=== PATIENT | male | born 1960 | race Caucasian/White ===

== ENCOUNTER 2024-07-30 06:20 | Observation (INO) ==
[2024-07-30] MEDS: SODIUM CHLORIDE 0.9% 1,000 ML IV ONE ×2 (07:00→08:21)
--- NOTE | 2024-07-30 07:17 | Emergency Department Note ---
Impression & Plan Nausea & vomiting, Diarrhea, Dehydration, Elevated troponin, Abnormal ECG ED Provider Note ED Provider Note NAME: HUMBLE BARKLEY AGE:63 SEX: Male : 1960 ARRIVES VIA: Private vehicle INFORMANT: Patient ED PROVIDER(s): Ana Khan DO CHIEF COMPLAINT: Nausea and vomiting, diarrhea, dehydration HPI: This is a 63-year-old male presents emergency department due to concern for 4 days of nausea and vomiting, diarrhea, abdominal cramping and concern for dehydration. Patient states he first began feeling ill on Friday and thought perhaps it was food poisoning. He states diarrhea started first followed by vomiting. He states he has had more diarrhea than vomiting throughout the last 4 days. He states his daughter did give him Zofran to try which she was taking once a day without any significant improvement. He states he feels a lot of bloating and central abdominal discomfort. He has not noted any blood in the emesis or stools. No recent antibiotics, no recent travel, no history of IBS or IBD. Patient states he had a routine colonoscopy performed a little over a month ago in which a polyp was removed however was otherwise reported to him as reassuring. No recent change in medications. He denies any other known sick contact. PAST MEDICAL HISTORY:See Below PAST SURGICAL HISTORY:See Below FAMILY HISTORY:See Below SOCIAL HISTORY:See Below HOME MEDICATIONS:See Below ALLERGIES:See Below VITALS:See Below PHYSICAL EXAMINATION: GENERAL: alert, well appearing, well nourished, no distress, non-toxic EYE EXAM: normal conjunctiva, PERRL and EOM's grossly intact OROPHARYNX: no exudate, no erythema, lips, buccal mucosa, and tongue normal and mucous membranes are dry NECK: supple, no nuchal rigidity, no adenopathy, non-tender LUNGS: Clear to auscultation. Normal chest wall mechanics, no w/r/r HEART: no murmurs, S1 normal and S2 normal ABDOMEN: abdomen soft, non-tender, normo-active bowel sounds, no masses, no rebound or guarding. BACK: Back is symmetrical on inspection and there is no deformity, no midline tenderness, no CVA tenderness. SKIN: no rashes, petechiae, orbruising UPPER EXTREMITIES: upper extremities are grossly normal. FROM, nml pulses b/l. LOWER EXTREMITIES: No pitting edema. FROM, nml pulses b/l. NEURO EXAM: Normal sensorium, cranial nerves II-XII grossly intact, normal speech, no facial droop,nogross weakness of arms, no gross weakness of legs. Gross sensation intact. No ataxia. Vital Signs: reviewed and remarkable Differential Diagnosis: Viral syndrome, foodborne illness, dehydration, RAÚL, ischemic colitis, bowel obstruction, volvulus, perforation, medication ADR, as well as others were considered MEDICAL DECISION MAKING: This is a 63 yo male who presents to the ER c/o 4 days of diarrhea, nausea, and vomiting. Labs drawn and sent, IV established, EKG and CXR performed and interpreted at bedside, and patient placed on telemetry. Patient started on IVF and given IV protonix, IV compazine and benadryl. Labs revealed hypokalemia, dehydration, and elevated troponin. EKG was abnormal additionally however patient denied chest pain or dyspnea. He was started on a 2nd liter and given oral potassium and oral bentyl. He did report feeling improved. Repeat troponin elevated further. Stool culture and cdiff negative. Lactic acid added and patient sent for CT a/p. CT reassuring as was lactic acid. I discussed concerns with patient given elevated troponin and unclear etiology of his symptoms and likely further need for rehydration. Patient also noted by automotive refinish technician to have a brief burst of tachycardia. Patient does have a hx of palpitations which may be exacerbated by dehydration and hypokalemia. Case discussed with hospitalist team for additional evaluation and mgmt. Consultation(s): 1125: Discussed with Quang Burns hospitalist team, for additional evaluation and management. ER Treatment Provided: See below Diagnostics Interpreted By Me: -ECG: Sinus tachycardia at 111, leftward axis, incomplete right bundle branch block, T wave inversions noted in 1, aVL, with appearance of slight ST depression in V3 through V6 -Cardiac Monitoring: An order was placed for continuous cardiac monitoring. The monitor shows a rate of 108 with sinus tachycardia rhythm. -Laboratory studies: As stated above and show below. -Imaging studies: CT A/P: No obvious perforation, no diverticulitis, no bowel obstruction Triage Nursing Note Reviewed Prior/Outside Records Reviewed Past Med/Surg History Problem List (Updated 07/30/24 @ 16:33 by RAMONE Bernstein) Hyperglycemia Hypokalemia Abnormal ECG (Acute) Elevated troponin (Acute) Dehydration (Acute) Diarrhea (Acute) Nausea & vomiting (Acute) History of palpitations Kidney stones History of adrenal surgery Adrenal cyst Rt Diverticulitis (Chronic) hx Medical History Adrenal cyst Rt Borderline diabetes mellitus Diverticulitis hx Diverticulosis GERD (gastroesophageal reflux disease) Hearing loss Heart palpitations 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 Hemochromatosis therapeutic phlebotomy PRN [facility]. History of anesthesia problem hx aspiration with endoscopy procedure x 1 occurrence History of basal cell carcinoma History of colon polyps Osteoarthritis Rash in adult reports recurrent rash, unk etiology. recent visit with factory manager, determined allergy to fragrances and bacitracin Sleep apnea unable to tolerate CPAP Surgical History History of adrenal surgery History of arthroscopy of right knee History of basal cell carcinoma (BCC) excision History of biopsy Rt adrenal gland -- benign History of cervical spinal surgery ROM WNL per pt History of cholecystectomy History of colonoscopy History of esophagogastroduodenoscopy (EGD) History of lumbar surgery History of shoulder surgery BL History of thumb surgery Left Social History Smoking Status: Never smoker Second Hand Exposure: No; Do You Dip or Chew Tobacco: No; Hx Alcohol Use: No Hx Substance Use: No Preferred Language: Turkmen Communication Ability: Effective Cot Assembler Required: No Beliefs That Will Affect Care: None marital status: Current Living Situation: Spouse current occupational status: employed Feels Safe at Home: Yes Assistive Devices: Glasses Allergies Allergies Allergy/AdvReac Type Severity Reaction Status Date / Time amoxicillin Allergy Severe Swelling Verified 07/30/24 09:07 of Lip/Tongue/Throat bacitracin Allergy Severe Rash Verified 07/30/24 09:07 clavulanic acid Allergy Severe Swelling Verified 07/30/24 09:07 of Lip/Tongue/Throat Penicillins Allergy Severe Swelling Verified 07/30/24 09:07 of Lip/Tongue/Throat perfume Allergy Severe [place]/Perfume/Anything Unverified 07/30/24 09:02 with fragrance on skin causes rash sulfamethoxazole Allergy Severe Hives and Unverified 07/30/24 09:02 [From Bactrim] Rash trimethoprim [From Bactrim] Allergy Severe Hives and Unverified 07/30/24 09:02 Rash ciprofloxacin Allergy Intermediate Rash Verified 07/30/24 09:02 moxifloxacin Allergy Unknown Rash Verified 07/30/24 09:02 Home Meds Home Medications Medication Instructions Recorded Confirmed acetaminophen 500 mg tablet 500 mg PO Q6H PRN Pain 12/26/20 07/30/24 (Tylenol Extra Strength) omeprazole 40 mg capsule,delayed 40 mg PO QAM 12/26/20 07/30/24 release fexofenadine 180 mg tablet 180 mg PO QAM PRN Allergy Symptoms 09/25/22 07/30/24 Previous Rx's Medication Instructions Recorded metformin 500 mg tablet 500 mg PO UD #35 tabs 07/31/24 metoprolol succinate 25 mg 25 mg PO DAILY #30 tabs 07/31/24 tablet,extended release 24 hr Results & Data (ED) Vital Signs Vital Signs - 24 hr 07/30/24 06:27 07/30/24 06:39 07/30/24 06:48 Temperature 36.6 C Temperature Source Temporal Artery Scan Pulse Rate 115 H 109 H Pulse Rate [Apical] 107 H Pulse Rhythm Pulse Rhythm [Apical] Regular Respiratory Rate 18 18 Respiratory Effort / Characteristics Non-Labored Non-Labored Spontaneous Respiratory Depth Normal Normal Respiratory Pattern Regular Regular Blood Pressure 149/86 H Blood Pressure [Right Arm] 134/91 Blood Pressure Mean 107 Blood Pressure Mean [Right Arm] 105 Pulse Oximetry 97 97 Oxygen Delivery Method Room Air Room Air Sepsis Recent Fever Within 48 Hours No Sepsis New/Unexplained Change in Mental Status N/A Sepsis Action Taken by Nursing No Action Required 07/30/24 06:48 07/30/24 08:31 07/30/24 10:16 Temperature Temperature Source Pulse Rate 107 H Pulse Rate [Apical] 97 H 91 H Pulse Rhythm Regular Pulse Rhythm [Apical] Respiratory Rate 18 13 14 Respiratory Effort / Characteristics Respiratory Depth Respiratory Pattern Blood Pressure Blood Pressure [Right Arm] 141/81 H 128/70 Blood Pressure Mean Blood Pressure Mean [Right Arm] 101 89 Pulse Oximetry 97 96 94 Oxygen Delivery Method Room Air Room Air Room Air Sepsis Recent Fever Within 48 Hours Sepsis New/Unexplained Change in Mental Status Sepsis Action Taken by Nursing Laboratory Data 07/31/24 04:19 07/31/24 04:19 Lab Results 07/30/24 07/30/24 07/30/24 Range/Units 06:52 08:32 10:23 WBC 10.30 (4.8-10.8) K/ul RBC 6.12 H (4.70-6.10) M/uL Hgb 18.6 H (14.0-18.0) g/dl Hct 50.9 (42.0-52.0) % MCV 83.2 (80.0-100.0) fL MCH 30.4 (25.0-34.0) pg MCHC 36.5 H (32.0-36.0) g/dL RDW Std Deviation 36.9 (36.4-46.3) fL RDW Coeff of [place] 12.2 (11.5-14.5) % Plt Count 260 (130-400) K/uL MPV 9.6 (9.4-12.4) fL Immature Gran % (Auto) 1.0 % Neut % (Auto) 72.3 % Lymph % (Auto) 16.5 % [place] % (Auto) 8.8 % Eos % (Auto) 1.0 % Baso % (Auto) 0.4 % Neut # (Auto) 7.45 H (1.40-6.50) K/uL Lymph # (Auto) 1.70 (1.20-3.40) K/uL [place] # (Auto) 0.91 H (0.11-0.59) K/uL Eos # (Auto) 0.10 (0.00-0.50) K/uL Baso # (Auto) 0.04 (0.00-0.20) K/uL Immature Gran # (Auto) 0.10 (0.01-0.20) K/uL PT 10.9 (9.0-12.0) Seconds INR 1.0 (0.9-1.1) Sodium 134 L (136-145) mmol/L Potassium 3.0 L (3.5-5.1) mmol/L Chloride 103 (98-107) mmol/L Carbon Dioxide 21 (21-32) mmol/L Anion Gap 10 (3-11) BUN 20 (6-23) mg/dl Creatinine 1.39 (0.6-1.4) mg/dl Est Cr Clr Drug Dosing 64.3 ml/min eGFR 56.61 BUN/Creatinine Ratio 14.4 (10-20) Glucose 207 H (70-99(Fasting)) mg/dl Estimat Average Glucose 197 mg/dl Hemoglobin A1c 8.5 H (4.5-5.6) % Lactate 1.1 (0.4-2.0) mmol/L Calcium 9.6 (8.6-10.3) mg/dl Magnesium 1.8 (1.7-2.4) mg/dl Total Bilirubin 1.5 H (0.2-1.0) mg/dl AST 22 (13-39) U/L ALT 32 (7-52) U/L Alkaline Phosphatase 85 (34-104) U/L Troponin I High Sens 44.5 H 55.6 H* D (0-20) pg/ml Total Protein 8.3 (6.0-8.3) gm/dl Albumin 4.6 (3.4-5.0) gm/dl Globulin 3.7 (2.5-4.0) gm/dl Albumin/Globulin Ratio 1.2 (0.9-2) Lipase 25 (11-82) U/L TSH 2.949 (0.300-4.500) uIu/ml Urine Color Yellow Urine Appearance Clear (Clear) Urine pH 5.5 (4.5-7.5) Ur Specific [place] 1.013 (1.000-1.030) Urine Protein Trace H (Negative) Urine Glucose (UA) Negative (Negative) Urine Ketones 1+ H (Negative) Urine Blood Negative (Negative) Urine Nitrite Negative (Negative) Urine Bilirubin Negative (Negative) Urine Urobilinogen Negative (Negative) Ur Leukocyte Esterase Negative (Negative) Urine WBC (Auto) 0-5 (0-5) /hpf Urine RBC (Auto) 0-2 (0-2) /hpf U Hyaline Cast (Auto) 11-20 H (0-2) /lpf U Epithel Cells (Auto) 0-2 (0-2) /hpf Urine Bacteria (Auto) None Seen (None Seen) Hyaline Casts Present A (None Presnt) /lpf Granular Casts Present A (None Prsent) /lpf Stl C. cayetanensis PCR Not Detected (NotDetected) Stool Rotavirus A PCR Not Detected (NotDetected) Stl Adenov F 40/41 PCR Not Detected (NotDetected) Stool Astrovirus (PCR) Not Detected (NotDetected) Stool Campylobacter PCR Not Detected (NotDetected) Stl C. diff Tox B Gene Negative Cdiff Gene (Neg) Stool Cryptosporidium PCR Not Detected (NotDetected) Stl E.coli Shiga Tox PCR Not Detected (NotDetected) Stl Enterotoxigenic E PCR Not Detected (NotDetected) Stool EPEC (PCR) Not Detected (NotDetected) Stool EAEC (PCR) Not Detected (NotDetected) Stl E. histolytica PCR Not Detected (NotDetected) Stool Giardia Lamblia PCR Not Detected (NotDetected) Stool Salmonella PCR Not Detected (NotDetected) Stool Sapovirus (PCR) Not Detected (NotDetected) Stl P. shigelloides PCR Not Detected (NotDetected) Stl Shigella/EIEC PCR Not Detected (NotDetected) St Y.enterocolitica PCR Not Detected (NotDetected) Stool Vibrio (PCR) Not Detected (NotDetected) Stl Vibrio cholerae PCR Not Detected (NotDetected) Stl Norovirus GI/GII PCR Not Detected (NotDetected) Administered Medications Discontinued Medications Diphenhydramine HCl (Diphenhydramine 50 Mg/Ml Vial) 12.5 mg IV NOW STA Stop: 07/30/24 07:37 Last Admin: 07/30/24 08:20 Dose: 12.5 mg Documented By: CHUYITA Sodium Chloride (Nss) 1,000 mls @ 999 mls/hr IV .Q1H1M ONE Stop: 07/30/24 08:04 Last Infusion: 07/30/24 08:15 Dose: Infused Documented By: Admin: 07/30/24 07:00 Dose: 999 mls/hr Documented By: CHUYITA Pantoprazole Sodium (Protonix) 40 mg in 10 mls @ 5 mls/min IV NOW ONE Stop: 07/30/24 07:06 Last Admin: 07/30/24 07:26 Dose: 5 mls/min Documented By: CHUYITA Prochlorperazine (Compazine) 1 mls @ 1 mls/min IV ONE ONE Stop: 07/30/24 07:37 Last Admin: 07/30/24 08:21 Dose: 1 mls/min Documented By: CHUYITA Magnesium Sulfate/Dextrose (Magnesium Sulfate / D5w) 1 gm in 100 mls @ 100 mls/hr IV NOW STA Stop: 07/30/24 08:36 Last Infusion: 07/30/24 09:33 Dose: Infused Documented By: Admin: 07/30/24 08:21 Dose: 100 mls/hr Documented By: CHUYITA Sodium Chloride (Nss) 1,000 mls @ 999 mls/hr IV .Q1H1M ONE Stop: 07/30/24 09:09 Last Infusion: 07/30/24 10:21 Dose: Infused Documented By: Admin: 07/30/24 08:21 Dose: 999 mls/hr Documented By: CHUYITA Potassium Chloride/Sodium Chloride (Normal Saline W/20 Meq Kcl) 20 meq in 1,000 mls @ 100 mls/hr IV .Q10H OSIEL Stop: 07/31/24 17:14 Last Admin: 07/31/24 07:17 Dose: 100 mls/hr Documented By: Infusion: 07/31/24 07:17 Dose: Infused Documented By: Admin: 07/30/24 22:32 Dose: 100 mls/hr Documented By: Infusion: 07/30/24 22:14 Dose: Infused Documented By: Admin: 07/30/24 12:14 Dose: 100 mls/hr Documented By: CHUYITA Ioversol (Optiray 320 100ml) 94 ml IV ONCE ONE Stop: 07/30/24 10:36 Last Admin: 07/30/24 10:35 Dose: 94 ml Documented By: JC Metoprolol Tartrate (Metoprolol Tartrate 25 Mg Tab) 12.5 mg PO BID [facility] Stop: 08/29/24 20:59 Last Admin: 07/30/24 20:11 Dose: 12.5 mg Documented By: MARITZA Metoprolol Tartrate (Metoprolol Tartrate 25 Mg Tab) 12.5 mg PO ONE ONE Stop: 07/30/24 12:46 Last Admin: 07/30/24 13:29 Dose: 12.5 mg Documented By: BRIAN Metoprolol Tartrate (Metoprolol Tartrate 25 Mg Tab) 12.5 mg PO NOW STA Stop: 07/31/24 04:12 Last Admin: 07/31/24 04:26 Dose: 12.5 mg Documented By: MARITZA Potassium Chloride (Potassium Chloride Crtab 20 Meq Tabcr) 40 meq PO NOW STA Stop: 07/30/24 08:10 Last Admin: 07/30/24 08:31 Dose: 40 meq Documented By: CHUYITA Potassium Chloride (Potassium Chloride Crtab 20 Meq Tabcr) 40 meq PO NOW STA Stop: 07/30/24 13:33 Last Admin: 07/30/24 17:23 Dose: 40 meq Documented By: SUSHANT Potassium Chloride (Potassium Chloride Crtab 20 Meq Tabcr) 40 meq PO NOW STA Stop: 07/30/24 17:21 Last Admin: 07/30/24 19:08 Dose: Not Given Documented By: MARITZA Imaging Data Radiologist's Impression: Abdomen/Pelvis CT 07/30/24 10:[address] WITH IV CONTRAST CT DOSE: 1469.37 mGy.cm HISTORY: abd pain, diarrhea TECHNIQUE: Multiaxial CT images of the abdomen and pelvis were performed following the IV administration of 90 cc of Optiray, A dose lowering technique was utilized adhering to the principles of ALARA. COMPARISON STUDY: 12/26/2020 FINDINGS: ABDOMEN: Stable fatty liver. Gallbladder is surgically absent. Spleen, pancreas, and left adrenal gland are unremarkable. There is a stable 2.5 cm oval hypodense peripherally calcified right adrenal nodule. Kidneys show no hydronephrosis. There is a tiny nonobstructing calculus superior right kidney. There are mild atherosclerotic calcifications. No abdominal aortic aneurysm. Pelvis: Prostate is enlarged. Urinary bladder is nondistended. There is mild sigmoid diverticulosis. No acute diverticulitis. There is a small amount of liquid stool suggesting diarrhea. No bowel inflammation or obstruction seen. No free fluid, free air, or abscess. No enlarged adenopathy. Osseous structures: There is lumbar degenerative disc disease. There are moderate degenerative changes at the hips. IMPRESSION: 1. Mild retained liquid stool suggesting diarrhea. 2. No other acute findings seen. ACT 112: Negative or not required by law. The above report was generated using voice recognition software. It may contain grammatical, syntax or spelling errors. Electronically signed by: Jb Casillas M.D. 07/30/2024 11:05 AM Discharge Plan Visit Data Chief Complaint: Illness Stated Complaint: DIARRHEA, HEART RACING, PALPITATION, ABD PAIN ED Provider: Ana Khan Discharge Problem: Nausea & vomiting, Diarrhea, Dehydration, Elevated troponin, Abnormal ECG Patient Disposition: Admitted As Inpatient Discharge Instructions Interventions: ED Discharge Assessment Last Done: 07/30/24 14:36
[2024-07-30 07:19] LABS: Basophils # (auto) 0.04 K/uL (0.00-0.20); Basophils % (auto) 0.4 %; Hematocrit (blood only) 50.9 % (42.0-52.0); Hemoglobin 18.6 g/dl (14.0-18.0); Lymphocytes % (auto) 16.5 %; Mean Corpuscular Hemoglobin 30.4 pg (25.0-34.0); Mean Corpuscular Hgb Conc 36.5 g/dL (32.0-36.0); Mean Corpuscular Volume 83.2 fL (80.0-100.0); Mean Platelet Volume 9.6 fL (9.4-12.4); Monocytes # (auto) 0.91 K/uL (0.11-0.59); Monocytes % (auto) 8.8 %; Neutrophils # (auto) 7.45 K/uL (1.40-6.50); Neutrophils % (auto) 72.3 %; Platelet Count 260 K/uL (130-400); RDW Coefficient of Variation 12.2 % (11.5-14.5); RDW Standard Deviation 36.9 fL (36.4-46.3); Red Blood Count 6.12 M/uL (4.70-6.10)
[2024-07-30] MEDS: PANTOprazole 40 MG/10 ML SYR IV ONE (07:26)
[2024-07-30 07:34] LABS: Albumin Globulin Ratio 1.2 (0.9-2); Albumin Level 4.6 gm/dl (3.4-5.0); BUN Creatinine Ratio 14.4 (10-20); Bilirubin,Total 1.5 mg/dl (0.2-1.0); Calcium 9.6 mg/dl (8.6-10.3); Creatinine Clr Calc Pharmacy 64.3 ml/min; Globulin 3.7 gm/dl (2.5-4.0); Magnesium 1.8 mg/dl (1.7-2.4); Total Protein 8.3 gm/dl (6.0-8.3)
[2024-07-30 07:39] LABS: Troponin I High Sensitivity 44.5 pg/ml (0-20)
[2024-07-30 07:41] LABS: Prothrombin Time 10.9 Seconds (9.0-12.0)
[2024-07-30 07:49] LABS: Thyroid Stimulating Hormone 2.949 uIu/ml (0.300-4.500)
[2024-07-30] MEDS: diphenhydrAMINE 50 MG/ML VIAL IV STA (08:20)
[2024-07-30] MEDS: MAGNESIUM SULFATE / D5W 1 GM/100 ML BAG IV STA (08:21)
[2024-07-30] MEDS: PROCHLORPERAZINE 1 ML IV ONE (08:21)
[2024-07-30] MEDS: POTASSIUM CHLORIDE CRTAB 20 MEQ TABCR PO STA ×3 (08:31→19:08)
[2024-07-30 09:18] LABS: Appearance Urine Clear (Clear); Bacteria Urine Automated None Seen (None Seen); Bilirubin Urine Negative (Negative); Blood Urine Negative (Negative); Color Urine Yellow; Epithelial Cell Urine Auto 0-2 /hpf (0-2); Glucose Urine UA Negative (Negative); Granular Casts Urine Present /lpf (None Prsent); Hyaline Casts Urine Present /lpf (None Presnt); Ketones Urine 1+ (Negative); Leukocyte Esterase Urine Negative (Negative); Nitrite Urine Negative (Negative); Protein Urine Trace (Negative); RBC Urine Automated 0-2 /hpf (0-2); Specific Gravity Urine 1.013 (1.000-1.030); Urobilinogen Urine Negative (Negative); WBC Urine Automated 0-5 /hpf (0-5); pH Urine 5.5 (4.5-7.5)
[2024-07-30 10:13] LABS: Adenovirus F 40/41 PCR Not Detected (NotDetected); Astrovirus PCR Not Detected (NotDetected); Campylobacter PCR Not Detected (NotDetected); Cryptosporidium PCR Not Detected (NotDetected); Cyclospora cayetanensis PCR Not Detected (NotDetected); Entamoeba histolytica PCR Not Detected (NotDetected); Enteroaggregative E.coli(EAEC) Not Detected (NotDetected); Enteropathogenic E.coli (EPEC) Not Detected (NotDetected); Enterotoxigenic E.coli (ETEC) Not Detected (NotDetected); Giardia lamblia PCR Not Detected (NotDetected); Norovirus GI/GII PCR Not Detected (NotDetected); Plesiomonas shigelloides PCR Not Detected (NotDetected); Rotavirus A PCR Not Detected (NotDetected); Salmonella PCR Not Detected (NotDetected); Sapovirus PCR Not Detected (NotDetected); Shiga-like Toxin E.coli (STEC) Not Detected (NotDetected); Shigella/Enteroinvasive E.coli Not Detected (NotDetected); Vibrio cholerae PCR Not Detected (NotDetected); Vibrio species PCR Not Detected (NotDetected); Yersinia enterocolitica PCR Not Detected (NotDetected)
[2024-07-30] MEDS: OPTIRAY 320 100ml IV ONE (10:35)
--- NOTE | 2024-07-30 11:07 | CT Scan Report ---
ABDOMEN AND PELVIS CT WITH IV CONTRAST CT DOSE: 1469.37 mGy.cm HISTORY: abd pain, diarrhea TECHNIQUE: Multiaxial CT images of the abdomen and pelvis were performed following the IV administrat ion of 90 cc of Optiray, A dose lowering technique was utilized adhering to the principles of ALARA. COMPARISON STUDY: 12/26/2020 FINDINGS: ABDOMEN: Stable fatty liver. Gallbladder is surgically absent. Spleen, pancreas, and left adrenal gla nd are unremarkable. There is a stable 2.5 cm oval hypodense peripherally calcified right adrenal nod ule. Kidneys show no hydronephrosis. There is a tiny nonobstructing calculus superior right kidney. T here are mild atherosclerotic calcifications. No abdominal aortic aneurysm. Pelvis: Prostate is enlarged. Urinary bladder is nondistended. There is mild sigmoid diverticulosis. No acute diverticulitis. There is a small amount of liquid stool suggesting diarrhea. No bowel inflam mation or obstruction seen. No free fluid, free air, or abscess. No enlarged adenopathy. Osseous structures: There is lumbar degenerative disc disease. There are moderate degenerative change s at the hips. IMPRESSION: 1. Mild retained liquid stool suggesting diarrhea. 2. No other acute findings seen. ACT 112: Negative or not required by law. The above report was generated using voice recognition software. It may contain grammatical, syntax o r spelling errors. Electronically signed by: Jb Casillas M.D. 07/30/2024 11:05 AM
[2024-07-30] MEDS: NSS + 20MEQ KCL 20 MEQ/1,000 ML BAG IV SCH (12:14)
--- NOTE | 2024-07-30 12:31 | Electrocardiogram Report ---
Test Reason : Blood Pressure : */* mmHG Vent. Rate : 111 BPM Atrial Rate : 111 BPM P-R Int : 200 ms QRS Dur : 108 ms QT Int : 332 ms P-R-T Axes : 43 -67 99 degrees QTcB Int : 451 ms Sinus tachycardia Left anterior fascicular block Incomplete right bundle branch block Left ventricular hypertrophy with repolarization abnormality Abnormal ECG When compared with ECG of 26-Dec-2020 09:57, Vent. rate has increased by 42 bpm Left ventricular hypertrophy with repolarization abnormality now present Confirmed by Christopher Hubbard ([id number]) on 07/30/2024 12:31:16 PM Referred By: REFERRED SELF Confirmed By: Christopher Hubbard
--- NOTE | 2024-07-30 13:03 | History & Physical Report ---
Date of Service July 30, 2024 Assessment & Plan (1) Nausea & vomiting: (2) Diarrhea: (3) Dehydration: Plan: Admit to tele Patient presenting for evaluation of N/V/D, palpitations. Stool PCR negative, will add on C. Diff CT abd/pelvis shows mild retained liquid stool suggesting diarrhea, no other acute findings seen Likely viral gastroenteritis Continue supportive care with IVF, electrolyte replacement, antiemetics Clear liquid diet, advance as tolerated (4) Elevated troponin: (5) Abnormal ECG: Plan: HS trop 44 -> 55 On tele patient was noted to have 2 separate runs of NSVT vs. SVT. Patient reports a long standing history of palpitations, now likely exacerbated by dehydration/hypokalemia. Replace electrolytes Trend trop Resting echo Start metoprolol tartrate 12.5mg BID, can transition to metoprolol succinate 25mg daily at discharge Consider Zio at discharge Cardio consult if abnormal echo or significant elevation in troponin (6) Hypokalemia: Plan: K+ 3.0, Mg+1.8 Replace, follow electrolytes (7) Hyperglycemia: Plan: Glucose 207 on labs No history of DM May be due to dehydration Will check hgb a1c, monitor BSGs for now (8) Adrenal cyst: Plan: Remote history of, s/p drainage Appears stable on CT abd/pelvis today Continue outpatient follow up DVT PROPHYLAXIS SCDs Dispo - Patient would like to establish care with Quang Wagner after discharge. Patient seen in collaboration with Dr. Betancur. I spent a total of 75 minutes coordinating, documenting, and providing care for this patient excluding time spent in the performance of separately billed services. This included personally reviewing all current laboratories and imaging studies, medication reconciliation, outpatient chart review, and discussion with specialists. History of Present Illness Chief Complaint: Nausea, Vomiting, Diarrhea, Palpitations Primary Care Provider: Nixon Llamas MD 63-year-old male with PMH of adrenal cyst s/p draining several years ago, dermatitis, palpitations, hemochromatosis, and other problems listed below who presents to the ED for evaluation of nausea, vomiting, diarrhea, palpitations. Patient reports he developed GI symptoms about 3 days ago. Reports having several episodes of vomiting and diarrhea. Denies hematemesis, coffee-ground emesis, prior bleeding per rectum, dark tarry stools. Patient reports a longsta nding history of intermittent palpitations. Reports having a stress test several years ago that was essentially normal and no further follow-up was had. Patient reports an increase in his palpitations since being sick. Denies chest pain. Has had some intermittent lightheadedness and dizziness, no syncopal event. Reports episodes of chills and diaphoresis however did not take his temperature. Denies urinary symptoms. In the ED, labs show K+ 3.0, HS trop 44 -> 55. Patient had two separate episodes of NSVT vs. SVT. Stool PCR negative. CT abd/pelvis shows mild retained liquid stool suggesting diarrhea, no other acute findings seen. patient was given IVF, IV Protonix, magnesium and potassium supplementation. Allergies Allergy/AdvReac Type Severity Reaction Status Date / Time amoxicillin Allergy Severe Swelling Verified 07/30/24 09:07 of Lip/Tongue/Throat bacitracin Allergy Severe Rash Verified 07/30/24 09:07 clavulanic acid Allergy Severe Swelling Verified 07/30/24 09:07 of Lip/Tongue/Throat Penicillins Allergy Severe Swelling Verified 07/30/24 09:07 of Lip/Tongue/Throat perfume Allergy Severe [place]/Perfume/Anything Unverified 07/30/24 09:02 with fragrance on skin causes rash sulfamethoxazole Allergy Severe Hives and Unverified 07/30/24 09:02 [From Bactrim] Rash trimethoprim [From Bactrim] Allergy Severe Hives and Unverified 07/30/24 09:02 Rash ciprofloxacin Allergy Intermediate Rash Verified 07/30/24 09:02 moxifloxacin Allergy Unknown Rash Verified 07/30/24 09:02 Home Medications Medication Instructions Recorded Confirmed Type acetaminophen 500 mg tablet 500 mg PO Q6H PRN Pain 12/26/20 07/30/24 History (Tylenol Extra Strength) omeprazole 40 mg capsule,delayed 40 mg PO QAM 12/26/20 07/30/24 History release fexofenadine 180 mg tablet 180 mg PO QAM PRN Allergy Symptoms 09/25/22 07/30/24 History Past Med/Surg History Problem List (Updated 07/30/24 @ 16:33 by RAMONE Bernstein) Hyperglycemia Hypokalemia Abnormal ECG (Acute) Elevated troponin (Acute) Dehydration (Acute) Diarrhea (Acute) Nausea & vomiting (Acute) History of palpitations Kidney stones History of adrenal surgery Adrenal cyst Rt Diverticulitis (Chronic) hx Medical History Adrenal cyst Rt Borderline diabetes mellitus Diverticulitis hx Diverticulosis GERD (gastroesophageal reflux disease) Hearing loss Heart palpitations hx holter monitor 4-5 years ago -- [facility]. 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 Hemochromatosis therapeutic phlebotomy PRN [facility]ly [facility]. History of anesthesia problem hx aspiration with endoscopy procedure x 1 occurrence History of basal cell carcinoma History of colon polyps Osteoarthritis Rash in adult reports recurrent rash, unk etiology. recent visit with loan broker, determined allergy to fragrances and bacitracin Sleep apnea unable to tolerate CPAP Surgical History History of adrenal surgery History of arthroscopy of right knee History of basal cell carcinoma (BCC) excision History of biopsy Rt adrenal gland -- benign History of cervical spinal surgery ROM WNL per pt History of cholecystectomy History of colonoscopy History of esophagogastroduodenoscopy (EGD) History of lumbar surgery History of shoulder surgery BL History of thumb surgery Left Social History Smoking Status: Never smoker Second Hand Exposure: No; Do You Dip or Chew Tobacco: No; Hx Alcohol Use: No Hx Substance Use: No Preferred Language: Welsh Communication Ability: Effective Agriculture Research Director Required: No Beliefs That Will Affect Care: None marital status: Current Living Situation: Spouse current occupational status: employed Feels Safe at Home: Yes Assistive Devices: Glasses Review of Systems Review of Systems: all noted and negative except for above Physical Exam Constitutional: WD/WN, vitals as above + ill appearing; no acute distress Eyes: PERRL, conjunctivae normal, anicteric sclerae ENMT: Mouth: + dry oral mucous membranes Respiratory: normal respiratory effort, lungs clear to auscultation Cardiovascular: Rate/Rhythm: regular rate and regular rhythm Vessels: normal peripheral pulses Extremities: no edema Gastrointestinal (Abdomen): normal bowel sounds, soft, nontender, no hepatosplenomegaly Musculoskeletal: no cyanosis or clubbing, extremities motor strength 5/5 Skin: no rashes, warm and dry Neurologic: PERRL, EOMI, accommodation nl, no face palsy, no dysarthria Psychiatric: A+Ox3, euthymic affect Results & Data Results & Data Vital Signs (Past 12 Hours) Vital Signs Temp Pulse Pulse Resp BP BP Pulse Ox 07/30/24 12:19 98 H 17 112/73 96 07/30/24 11:48 88 07/30/24 10:16 91 H 14 128/70 94 07/30/24 08:31 97 H 13 141/81 H 96 07/30/24 06:48 107 H 18 97 07/30/24 06:48 107 H 18 134/91 97 07/30/24 06:39 109 H 07/30/24 06:27 36.6 C 115 H 18 149/86 H 97 O2 Del Method 07/30/24 12:19 Room Air 07/30/24 11:48 07/30/24 10:16 Room Air 07/30/24 08:31 Room Air 07/30/24 06:48 Room Air 07/30/24 06:48 Room Air 07/30/24 06:39 07/30/24 06:27 Room Air Laboratory Results Short CBC 07/30/24 Range/Units 06:52 WBC 10.30 (4.8-10.8) K/ul Hgb 18.6 H (14.0-18.0) g/dl Hct 50.9 (42.0-52.0) % Plt Count 260 (130-400) K/uL BMP 07/30/24 06:52 Sodium 134 L Potassium 3.0 L Chloride 103 Carbon Dioxide 21 BUN 20 Creatinine 1.39 Glucose 207 H Calcium 9.6 Liver Function 07/30/24 Range/Units 06:52 Total Bilirubin 1.5 H (0.2-1.0) mg/dl AST 22 (13-39) U/L ALT 32 (7-52) U/L Alkaline Phosphatase 85 (34-104) U/L Albumin 4.6 (3.4-5.0) gm/dl Urine 07/30/24 Range/Units 08:32 Urine Color Yellow Urine Appearance Clear (Clear) Urine pH 5.5 (4.5-7.5) Ur Specific [place] 1.013 (1.000-1.030) Urine Protein Trace H (Negative) Urine Glucose (UA) Negative (Negative) Diagnostic Findings Abdomen/Pelvis CT 07/30/24 10:[address] WITH IV CONTRAST CT DOSE: 1469.37 mGy.cm HISTORY: abd pain, diarrhea TECHNIQUE: Multiaxial CT images of the abdomen and pelvis were performed following the IV administration of 90 cc of Optiray, A dose lowering technique was utilized adhering to the principles of ALARA. COMPARISON STUDY: 12/26/2020 FINDINGS: ABDOMEN: Stable fatty liver. Gallbladder is surgically absent. Spleen, pancreas, and left adrenal gland are unremarkable. There is a stable 2.5 cm oval hypodense peripherally calcified right adrenal nodule. Kidneys show no hydronephrosis. There is a tiny nonobstructing calculus superior right kidney. There are mild atherosclerotic calcifications. No abdominal aortic aneurysm. Pelvis: Prostate is enlarged. Urinary bladder is nondistended. There is mild sigmoid diverticulosis. No acute diverticulitis. There is a small amount of liquid stool suggesting diarrhea. No bowel inflammation or obstruction seen. No free fluid, free air, or abscess. No enlarged adenopathy. Osseous structures: There is lumbar degenerative disc disease. There are moderate degenerative changes at the hips. IMPRESSION: 1. Mild retained liquid stool suggesting diarrhea. 2. No other acute findings seen. ACT 112: Negative or not required by law. The above report was generated using voice recognition software. It may contain grammatical, syntax or spelling errors. Electronically signed by: Jb Casillas M.D. 07/30/2024 11:05 AM Code Status & VTE Plan VTE Prophylaxis Plan VTE Prophylaxis will be ordered: Yes Supervising Physician Co-Signing Physician Notes Attending Addendum: Case reviewed with the advanced practitioner. I have personally performed a history and physical examination on the patient. I have reviewed the advanced practitioner's documentation on the date of service referenced in note, and I agree with, and take responsibility for the plan of care. please refer to her notes for full details patient seen and examined, records reviewed by myself as well on exam, patient seen resting in bed, comfortable states he is feeling somewhat better has had 3 diarrhea, non bloody while at the ER no abdominal pain, nausea, fever/chills no chest pain, dyspnea on my exam no other symptoms VS noted and reviewed oriented x 3 , not in distress, speaks in sentences with no effort nor accessory muscle use normal rate, regular rhythm, no murmurs clear breath sounds bilaterally non distended, soft, nontender no bipedal edema, erythema, warmth no neuro deficits all labs, imaging noted and reviewed ASSESSMENT AND PLAN> GASTROENTERITIS Stool PCR: negative Stool C diff: pending supportive care with IV fluids, Imodium if C diff negative EPISODE OF V TACH/SVT non sustained in the setting of dehydration, hypoK replace K- goal >=4 Echo start Metoprolol tartrate 12.5mg BID monitor closely other diagnoses and plan of care as per advanced practitioner's notes I spent a total of 35 minutes coordinating, documenting, and providing care for this patient, excluding time spent in the performance of separately billed services or time spent by another provider/QHP. Petr Betancur MD
[2024-07-30] MEDS: METOPROLOL TARTRATE 25 MG TAB PO ONE (13:29)
[2024-07-30] MEDS ORDERED: ACETAMINOPHEN 325 MG TAB PO PRN (16:11)
--- OUTSIDE RECORDS SUMMARY | 2024-07-30 16:16 | External Medical Summary | Summary of Care ---
Author Name Unknown Organization [facility] Address [address] [place] [address] Phone [phone] Care Team Providers Care Psychological Stress Evaluator Name Role Phone Nixon Llamas MD Primary Care Provider Reason for Visit * Reason Onset Date Comments Precert Denied 07/12/2024 Dupixent Encounter Details Date Type Department Care Team ([facility] Contact Info) Description 07/12/2024 Telephone Dermatology [facility] [address] [place] [phone] Jovon Artis PA-C [address] [place] [address] Precert Denied (Dupixent) Allergies Active Allergy Reactions Criticality Noted Date Comments Salicylates Nausea/vomiting 07/25/2004 Amoxicillin-Pot Clavulanate Edema airway High 06/14/2019 Moxifloxacin Hcl In Nacl Rash 10/15/2011 Bacitracin Unknown 10/02/2022 Sulfamethoxazole-Trimet hoprim Hives 02/25/2024 Birds Unknown 09/22/2015 Ciprofloxacin Edema face/lips/tongue High 06/14/2019 Itching Clavulanic Acid High 05/23/2011 Other reaction(s): swelling Iodine Itching 07/25/2004 Hives, pt has had iodine several times since cat scan and had no issues Moxifloxacin Rash 05/23/2011 replaced free text allergy. replaced free text allergy. Mushroom Extract Complex (Do Not Select) Unknown 08/21/2015 Quercus Robur Unknown 08/21/2015 Other Allergy (See Comments) 09/25/2022 Other reaction(s): Rash Oyster Shell Unknown 08/21/2015 Penicillins Anaphylaxis High 07/25/2004 Pollen 09/22/2015 [place], insects, - eyes itch Shrimp Extract Unknown 08/21/2015 Skin Soft Fragrance Unknown 10/02/2022 documented as of this encounter (statuses as of 07/19/2024) Medications Omeprazole 40 MG Oral Capsule Delayed Release (PriLOSEC) One tab 1/2 hr prior to breakfast and one tab 1/2 prior to messi meal 60 Capsule 5 4 Active Fluticasone Propionate 50 MCG/ACT Nasal Suspension (Flonase) Administer 1 [place] into nostril as needed. Active Acetaminophen 325 MG Oral Tablet (Tylenol) Take 1 Tablet by mouth every 6 hours as needed. Active predniSONE 10 MG Oral Tablet (Deltasone) 6 tab daily x2 day THEN 5 tab daily x2 day THEN 4 tab daily x2 day THEN3 tab daily x2 day THEN2 tab daily x2 day THEN1 tab daily x2 day 42 Tablet 5 Active documented as of this encounter (statuses as of 07/19/2024) Active Problems Problem Noted Date Diagnosed Date Cognitive impairment 10/13/2019 Serologic abnormality 10/13/2019 Joint pain 10/13/2019 Chronic generalized pain 10/13/2019 Fatigue 10/13/2019 Bilateral carpal tunnel syndrome 10/13/2019 Rotator cuff disorder, unspecified laterality Osteoarthritis involving mul tiple joints on both sides of body 10/13/2019 Diverticulitis of colon 06/14/2019 Lumbar radiculitis 05/06/2017 Ear problem 05/24/2010 Abdominal pain, epigastric 04/24/2010 BMI 35-39 ISOLATED (SEE ACTUAL BMI) 11/06/2009 Overview (11/06/2009): Per Obesity Protocol, #19 Thoracic spondylosis 05/25/2008 Benign neoplasm of colon 07/31/2007 Overview (08/07/2007): adenomatous repeat colonoscopy in 5 yrs Stasis Dermatitis 06/10/2007 Diverticulosis of colon 08/26/2006 Overview (06/30/2007): mild BENIGN NEOPLASM ADRENAL 09/30/2005 Gastroparesis 01/15/2005 Diaphragmatic hernia 06/06/2004 Back disorder History of colonic polyps Overview (02/24/2017): ICD-10 update of inactive term Acute gastric ulcer without mention of hemorrhage, perforation, or obstruction Other constipation Irritable bowel syndrome documented as of this encounter (statuses as of 07/19/2024) Resolved Problems Problem Noted Date Diagnosed Date Resolved Date ADVANCE DIRECTIVE INFORMATION 04/26/2010 03/29/2024 Overview (04/26/2010): Yes, Patient instructed to provide copy of advance directive for provider to review and to be scanned into Electronic Medical Record documented as of this encounter (statuses as of 07/19/2024) Immunizations Name Administration Dates Next Due Seasonal Influenza, PF, 6 M & above, IM , (FluLaval or Fluzone) 03/03/2019 documented as of this encounter Social History Tobacco Use Types Packs/Day Years Used Date Smoking Tobacco: Never Smokeless Tobacco: Never Alcohol Use Standard Drinks/Week Comments No 0 (1 standard drink = 0.6 oz pur e alcohol) Sex and Gender Information Value Date Recorded Sex Assigned at Male 01/25/2022 8:02 PM EDT Legal Sex Male 7:01 AM EST Gender Identity Male 01/25/2022 8:02 PM EDT Sexual Orientation Straight 01/25/2022 8: 02 PM EDT Occupation Industry Job Start Date Job End Date [place] [employer] at [employer] Not on file No t on file Not on file documented as of this encounter Miscellaneous Notes * Telephone Encounter - Laura Moe RPh - 07/19/2024 9:57 AM EST Discussed with provider. Will appeal once form obtained from patient. Of note- BSA 15-25 % . Laura Moe, StephenD Medication Therapy Disease Management (MT[facility]) Dermatology Clinical Pharmacist 07/19/2024, 9:57 AM * Telephone Encounter - Laura Moe RPh - 07/19/2024 9:23 AM EST Images from the original note were not included. Insurance denied due to no use of Protopic/Elidel despite us putting additional topicals would not be beneficial given extent of body involved: Sending to provider to advise on how he would like to proceed. Laura Moe PharmD Medication Therapy Disease Management ([facility]) Dermatology Clinical Pharmacist 07/19/2024, 9:24 AM * Telephone Encounter - Laura Moe RPh - 07/14/2024 3:01 PM EST EASI 21 per provider. Please resubmit with information. Laura Moe PharmD Medication Therapy Disease Management ([facility]) Dermatology Clinical Pharmacist 07/14/2024, 3:01 PM * Telephone Encounter - Laura Moe RPh - 07/14/2024 9:56 AM EST Images from the original note were not included. Insurance requiring documentation of the follow: Sending to provider to advise. Laura Moe PharmD Medication Therapy Disease Management ([facility]) Dermatology Clinical Pharmacist 07/14/2024, 9:56 AM * Telephone Encounter - Laura Moe RPh - 07/12/2024 12:53 PM EST [facility] Dermatology Pre-cert Request Please see Dermatology pre-cert request - route referral message with approval, denial or questionsback to "Dermatology Pharmacist Pool [[id number]]". - Per provider: Light therapy contraindicated due to history of nonmelanoma skin cancer. - Additional topicals such as protopic/elidel would not be as effective given large body areas involved Therapies previously tried: - Topicals tried: Betamethasone dipropionate 0.05% cream (high potency), Clobetasol 0.05% cream (super-high potency), and Triamcinolone 0.1% cream (medium potency) - oral steroids - tasneem, cetirizine Laura Moe RPh Medication Therapy Disease Management Dermatology Department 07/12/2024, 12:53 PM * Telephone Encounter - Jovon Artis PA-C - 07/12/2024 12:03 PM EST Dermatology Pre-Cert Request Medication/Disease State Information: Medication: Dupilumab (Dupixent) Initiation: 300mg/2ml Pen - 600mg once then 300mg every two weeks (Day Supply: 8mL per 42 days) Diagnosis (including ICD-10): Atopic dermatitis - Atopic dermatitis, unspecified L20.9 Site of Care: specialty medication - route to [id number]. Referral to pharmacist for: Pharmacist Co-management See corresponding visit note(s) for additional supporting clinical information. Administration Location if Injection: Patient Administered at Home Is the patient in a facility?: No Office Information: Prescriber: Mirza Artis PA-C documented in this encounter Plan of Treatment Upcoming Encounters Date Type Department Care Team ([facility] Contact Info) Description 01/17/2025 11:20 AM EDT Office Visit Dermatology [address] [phone] Jovon Artis PA-C [address] [place] [id number] Scheduled Procedures Name Priority Associated Diagnoses Date/Ti me COLONOSCOPY FLEXIBLE PROXIMAL DIAGNOSTIC Recall History of colon polyps Health Maintenance Due Date Last Done Comments Depression Screening 1971 HIV Screening 11/14/1974 DTap/Tdap Vaccines (1 - Tdap) 11/14/1978 Cologuard 11/14/2004 Fecal Occult Blood Test 11/14/2004 Sigmoidoscopy 11/14/2004 Pneumococcal Vaccine: 50+ Years (1 of 1 - PCV) 11/14/2009 Zoster Vaccines (1 of 2) 11/14/2009 COVID-19 Vaccine (1 - 2023- season) 2024 Influenza Vaccine (FLU shot) (#1) 2024 01/28/2020, 03/03/2019 Diabetes Screening 06/23/2027 06/23/2024, 0 02/16/2024, 02/16/2024, Additional history exists Colonoscopy 06/01/2029 06/01/2024, 06/27, 07/16/2019, Additional history exists Colorectal Cancer Screening 06/01/2029 Lipid Panel 06/23/2029 06/23/2024, 12/25, 10/02/2022, Additional history exists RETIRED - COLONOSCOPY-EVERY 5 YRS AGES 18-100 Discontinued 06/01/2024, 07/16/2019, 07/16/2019, Additional history exists HPV (Gardasil) Vaccine Aged Out No lo nger eligible based on patient's age to complete this topic Hepatitis B Vaccine Aged Out No longe r eligible based on patient's age to complete this topic MENINGOCOCCAL (MENACTRA/MENVEO) Aged Out No longer eligible based on patient's age to complete this topic Meningitis B Vaccine (Bexsero/Trumemba) Aged Out No longer eligible based on patient's age to complete this topic documented as of this encounter Medical Devices Not on filedocumented as of this encounter Care Teams Psychological Stress Evaluator Relationship Specialty Start Date End Date Nixon Llamas MD [employer] [place] [id number] [place] [id number] PCP - General 07/23/04 documented as of this encounter
--- OUTSIDE RECORDS SUMMARY | 2024-07-30 16:16 | External Medical Summary | Summary of Care ---
Author Name Unknown Organization [facility] Address [address] [place] [address] Phone [phone] Care Team Providers Care Section Supervisor Name Role Phone Nixon Llamas MD Primary Care Provider Reason for Visit * Reason Onset Date Comments Pre Cert/Prior Auth 07/12/2024 Dupixent Encounter Details Date Type Department Care Team ([facility] Contact Info) Description 07/12/2024 Telephone Dermatology [facility] [address] [place] [address] Jovon Artis PA-C [address] [place] [address] Pre Cert/Prior Auth (Dupixent) Allergies Active Allergy Reactions Criticality Noted [...] 08/21/2015 Penicillins Anaphylaxis High 07/25/2004 Pollen 09/22/2015 [place], insects, - eyes itch Shrimp Extract Unknown 08/21/2015 Skin Soft Fragrance Unknown 10/02/2022 documented as of this encounter (statuses as of 07/12/2024) Medications Omeprazole 40 MG Oral Capsule Delayed Release (PriLOSEC) One tab 1/2 hr prior to breakfast and one tab 1/2 prior to messi meal 60 Capsule 5 4 Active Fluticasone Propionate 50 MCG/ACT Nasal Suspension (Flonase) Administer 1 [place] into nostril as needed. Active Acetaminophen 325 [...] as of this encounter (statuses as of 07/12/2024) Active Problems Problem Noted Date Diagnosed Date [...] as of this encounter (statuses as of 07/12/2024) Resolved Problems Problem Noted Date Diagnosed Date Resolved Date ADVANCE DIRECTIVE INFORMATION 04/26/2010 03/29/2024 Overview (04/26/2010): Yes, Patient instructed to provide copy of advance directive for provider to review and to be scanned into Electronic Medical Record documented as of this encounter (statuses as of 07/12/2024) Immunizations Name Administration Dates Next Due Seasonal [...] Industry Job Start Date Job End Date [employer] at [employer] Not on file No t on file Not on file documented as of this encounter Miscellaneous Notes * Telephone Encounter - Laura Moe RPh - 07/12/2024 12:53 PM EST [facility] Dermatology Pre-cert Request Please see Dermatology pre-cert request - route referral message with approval, denial or questionsback to "Dermatology Pharmacist Pool [[id number]]". - Per provider: Light therapy contraindicated due [...] of Care: specialty medication - route to [id number]. Referral to pharmacist for: Pharmacist Co-management See corresponding visit note(s) for additional supporting clinical information. Administration Location if Injection: Patient Administered at Home Is the patient in a facility?: No Office Information: Prescriber: Mirza Artis PA-C documented in this encounter Plan of Treatment Upcoming Encounters Date Type Department Care Team ([facility] Contact Info) Description 01/17/2025 11:20 AM EDT Office Visit Dermatology [address] [phone] Jovon Artis PA-C [address] [place] [address] Scheduled Procedures Name Priority Associated Diagnoses Date/Ti me COLONOSCOPY FLEXIBLE PROXIMAL DIAGNOSTIC Recall History of colon polyps Health Maintenance Due Date Last Done Comments Depression Screening 1971 HIV Screening 11/14/1974 DTap/Tdap Vaccines (1 - Tdap) 11/14/1978 Cologuard 11/14/2004 Fecal Occult Blood Test 11/14/2004 Sigmoidoscopy 11/14/2004 Pneumococcal Vaccine: 50+ Years (1 of 1 - PCV) 11/14/2009 Zoster Vaccines (1 of 2) 11/14/2009 COVID-19 Vaccine (2023- season) 2024 Influenza Vaccine (FLU shot) (#1) [...] filedocumented as of this encounter Care Teams Section Supervisor Relationship Specialty Start Date End Date Nixon Llamas MD [address] [place] [address] [place] [address] PCP - General 07/23/04 documented as of this encounter
--- OUTSIDE RECORDS SUMMARY | 2024-07-30 16:16 | External Medical Summary | Summary of Care ---
Author Name Unknown Organization [facility] Address [address] [place] [address] Phone [phone] Care Team Providers Care Dental Instrument Maker Name Role Phone Nixon Llamas MD Primary Care Provider Reason for Visit * Reason Onset Date Comments Precert Denied 07/12/2024 Dupixent Encounter Details Date Type Department Care Team ([facility] Contact Info) Description 07/12/2024 Telephone Dermatology [facility] [address] [place] [address] Jovon Artis PA-C [address] [place], [place] [phone] Precert Denied (Dupixent) Allergies Active Allergy Reactions [...] replaced free text allergy. Mushroom Extract Complex (Obsolete) Unknown 08/21/2015 Quercus Robur Unknown 08/21/2015 Other Allergy (See Comments) 09/25/2022 Other reaction(s): Rash Oyster Shell Unknown 08/21/2015 Penicillins Anaphylaxis High 07/25/2004 Pollen 09/22/2015 [place], insects, - eyes itch Shrimp Extract Unknown 08/21/2015 Skin Soft Fragrance Unknown 10/02/2022 documented as of this encounter (statuses as of 07/28/2024) Medications Omeprazole 40 MG Oral Capsule Delayed Release (PriLOSEC) One tab 1/2 hr prior to breakfast and one tab 1/2 prior to messi meal 60 Capsule 5 4 Active Fluticasone Propionate 50 MCG/ACT Nasal Suspension (Flonase) Administer 1 [place] into nostril as needed. Active Acetaminophen 325 [...] as of this encounter (statuses as of 07/28/2024) Active Problems Problem Noted Date Diagnosed Date [...] as of this encounter (statuses as of 07/28/2024) Resolved Problems Problem Noted Date Diagnosed Date Resolved Date ADVANCE DIRECTIVE INFORMATION 04/26/2010 03/29/2024 Overview (04/26/2010): Yes, Patient instructed to provide copy of advance directive for provider to review and to be scanned into Electronic Medical Record documented as of this encounter (statuses as of 07/28/2024) Immunizations Name Administration Dates Next Due Seasonal [...] Industry Job Start Date Job End Date [employer] at [employer] Not on file No t on file Not on file documented as of this encounter Miscellaneous Notes * Telephone Encounter - Laura Moe RPh - 07/19/2024 9:57 AM EST Discussed with provider. Will appeal once form obtained from patient. Of note- BSA 15-25 % . Laura Moe, Mitzi Medication Therapy Disease Management (MTDM) Dermatology Clinical [...] Laura Moe PharmD Medication Therapy Disease Management ([facility]) Dermatology Clinical Pharmacist 07/19/2024, 9:24 AM * Telephone Encounter - Laura Moe RPh - 07/14/2024 3:01 PM EST [facility] 21 per provider. Please resubmit with information. Laura Moe PharmD Medication Therapy Disease Management ([facility]) Dermatology Clinical Pharmacist 07/14/2024, 3:01 PM * Telephone Encounter - Laura Moe RPh - 07/14/2024 9:56 AM EST Images from the original note were not included. Insurance requiring documentation of the follow: Sending to provider to advise. Laura Moe PharmD Medication Therapy Disease Management ([facility]) Dermatology Clinical Pharmacist 07/14/2024, 9:56 AM * Telephone Encounter - Laura Moe RPh - 07/12/2024 12:53 PM EST [facility] Dermatology Pre-cert Request Please see Dermatology pre-cert request - route referral message with approval, denial or questionsback to "Dermatology Pharmacist Pool [[id number]]". - Per provider: Light therapy contraindicated due [...] of Care: specialty medication - route to [id number]. Referral to pharmacist for: Pharmacist Co-management See corresponding visit note(s) for additional supporting clinical information. Administration Location if Injection: Patient Administered at Home Is the patient in a facility?: No Office Information: Prescriber: Mirza Artis PA-C documented in this encounter Plan of Treatment Upcoming Encounters Date Type Department Care Team ([facility] Contact Info) Description 01/17/2025 11:20 AM EDT Office Visit Dermatology [address] [place] [address] [phone] Jovon Artis PA-C [address] [place] [address] Scheduled Procedures Name Priority Associated Diagnoses Date/Ti [...] filedocumented as of this encounter Care Teams Dental Instrument Maker Relationship Specialty Start Date End Date Nixon Llamas MD [address] [place] [address] [place] [phone] PCP - General 07/23/04 documented as of this encounter
--- OUTSIDE RECORDS SUMMARY | 2024-07-30 16:16 | External Medical Summary | Summary of Care ---
Author Name Unknown Organization [facility] Address [address] [place] [address] Phone [phone] Care Team Providers Care Fashion Adviser Name Role Phone Nixon Llamas MD Primary Care Provider Reason for Visit * Reason Onset Date Comments Precert Denied 07/12/2024 Dupixent Encounter Details Date Type Department Care Team ([facility] Contact Info) Description 07/12/2024 Telephone Dermatology [facility] [address] [place] [phone] Jovon Artis PA-C [address] [place] [address] Precert Denied (Dupixent) Allergies Active Allergy Reactions [...] 08/21/2015 Penicillins Anaphylaxis High 07/25/2004 Pollen 09/22/2015 [place], insects, - eyes itch Shrimp Extract Unknown 08/21/2015 Skin Soft Fragrance Unknown 10/02/2022 documented as of this encounter (statuses as of 07/14/2024) Medications Omeprazole 40 MG Oral Capsule Delayed Release (PriLOSEC) One tab 1/2 hr prior to breakfast and one tab 1/2 prior to messi meal 60 Capsule 5 4 Active Fluticasone Propionate 50 MCG/ACT Nasal Suspension (Flonase) Administer 1 [place] into nostril as needed. Active Acetaminophen 325 [...] as of this encounter (statuses as of 07/14/2024) Active Problems Problem Noted Date Diagnosed Date [...] as of this encounter (statuses as of 07/14/2024) Resolved Problems Problem Noted Date Diagnosed Date Resolved Date ADVANCE DIRECTIVE INFORMATION 04/26/2010 03/29/2024 Overview (04/26/2010): Yes, Patient instructed to provide copy of advance directive for provider to review and to be scanned into Electronic Medical Record documented as of this encounter (statuses as of 07/14/2024) Immunizations Name Administration Dates Next Due Seasonal [...] Industry Job Start Date Job End Date [employer] at [employer] Not on file No t on file Not on file documented as of this encounter Miscellaneous Notes * Telephone Encounter - Laura Moe RPh - 07/14/2024 9:56 AM EST Images from the original note were not included. Insurance requiring documentation of the follow: Sending to provider to advise. Laura Moe PharmD Medication Therapy Disease Management (MTD) Dermatology Clinical Pharmacist 07/14/2024, 9:56 AM * Telephone Encounter - Laura Moe RPh - 07/12/2024 12:53 PM EST [facility] Dermatology Pre-cert Request Please see Dermatology pre-cert request - route referral message with approval, denial or questionsback to "Dermatology Pharmacist Pool [[id number]]". - Per provider: Light therapy contraindicated due [...] of Care: specialty medication - route to [id number]. Referral to pharmacist for: Pharmacist Co-management See corresponding visit note(s) for additional supporting clinical information. Administration Location if Injection: Patient Administered at Home Is the patient in a facility?: No Office Information: Prescriber: Mirza Artis PA-C documented in this encounter Plan of Treatment Upcoming Encounters Date Type Department Care Team ([facility] Contact Info) Description 01/17/2025 11:20 AM EDT Office Visit Dermatology [facility] [address] [place] [phone] Jovon Artis PA-C [address] [place] [address] Scheduled Procedures Name Priority Associated Diagnoses Date/Ti [...] filedocumented as of this encounter Care Teams Fashion Adviser Relationship Specialty Start Date End Date Nixon Llamas MD [address] [place] [address] [place] [phone] PCP - General 07/23/04 documented as of this encounter
--- OUTSIDE RECORDS SUMMARY | 2024-07-30 16:16 | External Medical Summary | Summary of Care ---
Author Name Unknown Organization [facility] Address [address] [place] [address] Phone [phone] Care Team Providers Care Motion Picture Scene Builder Name Role Phone Nixon Llamas MD Primary Care Provider Reason for Visit * Reason Onset Date Comments Precert In Process 07/12/2024 18 Addie BENAVIDES Dupixent Encounter Details Date Type Department Care Team ([facility] Contact Info) Description 07/12/2024 Telephone Dermatology [facility] [address] [place] [address] Jovon Artis PA-C [address] [place] [address] Precert In Process (18 Addie FEP Dupixent) Allergies Active Allergy Reactions Criticality Noted Date [...] 08/21/2015 Penicillins Anaphylaxis High 07/25/2004 Pollen 09/22/2015 [place], insects, - eyes itch Shrimp Extract Unknown 08/21/2015 Skin Soft Fragrance Unknown 10/02/2022 documented as of this encounter (statuses as of 07/13/2024) Medications Omeprazole 40 MG Oral Capsule Delayed Release (PriLOSEC) One tab 1/2 hr prior to breakfast and one tab 1/2 prior to messi meal 60 Capsule 5 4 Active Fluticasone Propionate 50 MCG/ACT Nasal Suspension (Flonase) Administer 1 [place] into nostril as needed. Active Acetaminophen 325 [...] as of this encounter (statuses as of 07/13/2024) Active Problems Problem Noted Date Diagnosed Date [...] as of this encounter (statuses as of 07/13/2024) Resolved Problems Problem Noted Date Diagnosed Date Resolved Date ADVANCE DIRECTIVE INFORMATION 04/26/2010 03/29/2024 Overview (04/26/2010): Yes, Patient instructed to provide copy of advance directive for provider to review and to be scanned into Electronic Medical Record documented as of this encounter (statuses as of 07/13/2024) Immunizations Name Administration Dates Next Due Seasonal [...] Industry Job Start Date Job End Date [employer] at [employer] Not on file No t on file Not on file documented as of this encounter Miscellaneous Notes * Telephone Encounter - Laura Moe [facility] - 07/12/2024 12:53 PM EST [facility] Dermatology Pre-cert Request Please see Dermatology pre-cert request - route referral message with approval, denial or questionsback to "Dermatology Pharmacist Pool [[id number]]". - Per provider: Light therapy contraindicated due [...] of Care: specialty medication - route to [facility]. Referral to pharmacist for: Pharmacist Co-management See corresponding visit note(s) for additional supporting clinical information. Administration Location if Injection: Patient Administered at Home Is the patient in a facility?: No Office Information: Prescriber: Mirza Artis PA-C documented in this encounter Plan of Treatment Upcoming Encounters Date Type Department Care Team ([facility] Contact Info) Description 01/17/2025 11:20 AM EDT Office Visit Dermatology [address] [phone] Jovon Artis PA-C [address] [place] [address] Scheduled Procedures Name Priority Associated Diagnoses Date/Ti [...] filedocumented as of this encounter Care Teams Motion Picture Scene Builder Relationship Specialty Start Date End Date Nixon Llamas MD [address] [place] [address] [place] [address] PCP - General 07/23/04 documented as of this encounter
--- OUTSIDE RECORDS SUMMARY | 2024-07-30 16:16 | External Medical Summary | Summary of Care ---
Author Name Unknown Organization [facility] Address [address] [place] [address] Phone [phone] Care Team Providers Care Bufferer Name Role Phone Nixon Llamas MD Primary Care Provider Reason for Visit * Reason Comments Skin Check Patient presents tod ay for skin check. Lesion on L side of face. Rash on legs, back, buttock. Encounter Details Date Type Department Care Team ([facility] Contact Info) Description 07/12/2024 11:20 AM EST Office Visit Dermatology [facility] [address] [place] [address] Jovon Artis PA-C [address] [place] [address] Allergic contact dermatitis, unspecified trigger*; Atopic dermatitis, unspecified type; Verrucous keratosis; History of nonmelanoma skin cancer Allergies Active Allergy Reactions Criticality Noted Date [...] 08/21/2015 Penicillins Anaphylaxis High 07/25/2004 Pollen 09/22/2015 [place], insects, - eyes itch Shrimp Extract Unknown 08/21/2015 Skin Soft Fragrance Unknown 10/02/2022 documented as of this encounter (statuses as of 07/12/2024) Medications Omeprazole 40 MG Oral Capsule Delayed Release (PriLOSEC) One tab 1/2 hr prior to breakfast and one tab 1/2 prior to messi meal 60 Capsule 5 4 Active Fluticasone Propionate 50 MCG/ACT Nasal Suspension (Flonase) Administer 1 [place] into nostril as needed. Active Acetaminophen 325 [...] Industry Job Start Date Job End Date [employer] at [employer] Not on file No t on file Not on file documented as of this encounter Progress Notes * Ralf Hurd MD - 07/12/2024 12:51 PM EST I have seen and examined via teledermatology review of chart note and photos the patient with Jovon Artis PA-C. I have reviewed and agree with the assessment and plan. Ralf Hurd MD * Jovon Artis PA-C - 07/12/2024 10:59 AM EST SUBJECTIVE: History of Present Illness: Jamie Webb is a 63 year old male seen today for follow up skin check and for dermatitis/pruritus.Patient notes recently he has been very itchy- dermatitis continues to come and go. Finds topical medications ineffective. 12/10/2023 (in office) 23. Bacitracin +1 28. Fragrance mix 1... +1 48. Propolis... 5 REVIEW OF SYSTEMS: SKIN: No other new or changing moles. HEME/LYMPH: No new or enlarging lumps or bumps. SKIN CANCER HX: L upper back: Basal cell carcinoma, superficial multifocal type BCC- R forearm, R cheek, L forehead MEDICA TIONS: Current Outpatient Medications Medication Sig Dispense Refill Omeprazole 40 MG Oral Capsule Delayed Release (PriLOSEC) One tab 1/2 hr prior to breakfast and one tab 1/2 prior to messi meal 60 Capsule 5 Fluticasone Propionate 50 MCG/ACT Nasal Suspension (Flonase) Administer 1 [place] into nostril as needed. Acetaminophen 325 MG Oral Tablet (Tylenol) Take 1 Tablet by mouth every 6 hours as needed. No current facility-administered medications for this visit. ALLERG IES: Augmentin [amoxicillin-pot clavulanate], Ciprofloxacin, Clavulanic acid, Pcn [penicillins], Asa [salicylates], Avelox [moxifloxacin hcl in nacl], Bacitracin, Bactrim [sulfamethoxazole-trimethoprim], Birds, Iodine, Moxifloxacin, Mushroom extract complex (do not select), [place] bark [quercus robur], Other allergy (see comments), Oyster shell, Pollen, Shrimp extract, and Skin soft fragrance OBJECT ZOHRA: GEN: Healthy, alert, no distress, appears oriented, pleasant, and cooperative. SKIN: Detailed exam of hair, face including lids and lips, neck, chest, abdomen, back, bilateral upper ext. (arm, hand, fingers), bilateral lower ext. (leg, foot, toes), and palpation of scalp completed and are normal except: A. L superior cheek with a pink/white warty papule B. Back/arms/legs with xerosis and few pink scaly patches ASSESS MENT/PLAN: A. Favor VK/VV Cryosurgery explained to the patient, consent obtained, patient, site and procedure verified, and then cryotherapy was performed with Liquid Nitrogen via cryo spray unit to 1 lesions. Location noted in physical exam. Post op course explained. -bx if persistent B. History of allergic contact dermatitis/atopic dermatitis- persistent -patient requests prednisone taper due to itching. Rx sent and possible SE discussed. Tolerates medication well per patient. -discussed additional treatment options in detail. Light therapy contraindicated due to history of nonmelanoma skin cancer. -plan to start Dupixent pending insurance. Potential side effects discussed including conjunctivitis -recommended periodic skin exams for new or changing lesions with instructions to contact us in such circumstances for re-evaluation. These changes include rapid enlargement, changes in color or shape or symptoms, bleeding, or other concerns. C. Hx NMSC Follow-up: 6 months or sooner PRN Patient alone today. Photo(s) taken, pt verbally consented to having photo(s) taken. Contact patient via cell phone Ok to leave results on message: Yes Patient Phone Numbers Applicable photos (if any) and chart reviewed by Dr. Ralf Hurd Presumed diagnoses, expected natural histories, and management options discussed with the patient at length. Questions were addressed and anticipatory guidance provided. They were instructed to contact me if additional questions, concerns, or problems develop in the interim. -There were no barriers to learning and no other pain was related to today's visit. The patient and/or person accompanying patient demonstrates understanding of the visit and treatment. Ella Artis PA-C 07/12/2024 10:59 AM REF: SELF [address] STRE[address] ADDRESS AVAILABLE PCP: NIXON LLAMAS [address] [place] [address] [place] [phone] documented in this encounter Nursing Notes * Xin King LPN - 07/12/2024 10:56 AM EST Patient identified by name and date. Chief Complaint Patient presents with Skin Check Patient presents today for skin check. Lesion on L side of face. Rash on legs, back, buttock. documented in this encounter Plan of Treatment Upcoming Encounters Date Type Department Care Team ([facility] st Contact Info) Description 01/17/2025 11:20 AM EDT Office Visit Dermatology [facility] [address] [place] [phone] Jovon Artis PA-C [address] [place] [address] Scheduled Procedures Name Priority Associated Diagnoses Date/Ti [...] of 2) 11/14/2009 COVID-19 Vaccine (1 - season) 2024 Influenza Vaccine (FLU shot) (#1) [...] Not on filedocumented as of this encounter Procedures Procedure Name Priority Date/Time Associated Diagnosis Comments DERM EXAM - DERM (IMAGES ONLY, NO REPORT) Routine 07/12/2024 11:42 AM EST Allergic contact dermatitis, unspecified trigger documented in this encounter Results * DERM EXAM - DERM (IMAGES ONLY, NO REPORT) (07/12/2024 11:42 AM EST) Narrative Scheduling, Silent - 07/12/2024 11:42 AM EST This is an imaging study not interpreted or resulted by a [facility] or [facility] contracted radiologist. Jovon Artis PA-C RADIOLOGY (RAD GENERAL) Fin al Result documented in this encounter Visit Diagnoses Diagnosis Allergic contact dermatitis, unspecified trigger- Primary Atopic dermatitis, unspecified type Verrucous keratosis Other specified dermatoses History of nonmelanoma skin cancer Personal history of other malignant neoplasm of skin documented in this encounter Care Teams Bufferer Relationship Specialty Start Date End Date Nixon Llamas MD [address] [place] [address] [place] [phone] PCP - General 07/23/04 documented as of this encounter
--- OUTSIDE RECORDS SUMMARY | 2024-07-30 16:16 | External Medical Summary | Summary of Care ---
Author Name Unknown Organization [facility] Address [address] [place] [address] Phone [phone] Care Team Providers Care Ballpoint Pens Assembler Name Role Phone Nixon Llamas MD Primary Care Provider Reason for Visit * Reason Onset Date Comments Precert Denied 07/12/2024 Dupixent Encounter Details Date Type Department Care Team ([facility] Contact Info) Description 07/12/2024 Telephone Dermatology [facility] [address] [place] [address] Jovon Artis PA-C [address] [place] [address] Precert Denied (Dupixent) Allergies Active Allergy Reactions [...] 08/21/2015 Penicillins Anaphylaxis High 07/25/2004 Pollen 09/22/2015 [place], insects, - eyes itch Shrimp Extract Unknown 08/21/2015 Skin Soft Fragrance Unknown 10/02/2022 documented as of this encounter (statuses as of 07/19/2024) Medications Omeprazole 40 MG Oral Capsule Delayed Release (PriLOSEC) One tab 1/2 hr prior to breakfast and one tab 1/2 prior to messi meal 60 Capsule 5 4 Active Fluticasone Propionate 50 MCG/ACT Nasal Suspension (Flonase) Administer 1 [place] into nostril as needed. Active Acetaminophen 325 [...] Industry Job Start Date Job End Date [employer] at [employer] Not on file No t on [...] Laura Moe PharmD Medication Therapy Disease Management ([facility]) Dermatology Clinical Pharmacist 07/19/2024, 9:24 AM * Telephone Encounter - Laura Moe RPh - 07/14/2024 3:01 PM EST [facility] 21 per provider. Please resubmit with information. Laura Moe PharmD Medication Therapy Disease Management ([facility]) Dermatology Clinical Pharmacist 07/14/2024, 3:01 PM * Telephone Encounter - Laura Moe RPh - 07/14/2024 9:56 AM EST Images from the original note were not included. Insurance requiring documentation of the follow: Sending to provider to advise. Laura Moe PharmD Medication Therapy Disease Management ([facility]) Dermatology Clinical Pharmacist 07/14/2024, 9:56 AM * Telephone Encounter - Laura Moe RPh - 07/12/2024 12:53 PM EST [facility] Dermatology Pre-cert Request Please see Dermatology pre-cert request - route referral message with approval, denial or questionsback to "Dermatology Pharmacist Pool [[id number]]". - Per provider: Light therapy contraindicated due [...] of Care: specialty medication - route to [id number]. Referral to pharmacist for: Pharmacist Co-management See corresponding visit note(s) for additional supporting clinical information. Administration Location if Injection: Patient Administered at Home Is the patient in a facility?: No Office Information: Prescriber: Mirza Artis PA-C documented in this encounter Plan of Treatment Upcoming Encounters Date Type Department Care Team ([facility] Contact Info) Description 01/17/2025 11:20 AM EDT Office Visit Dermatology [address] [phone] Jovon Artis PA-C [address] [place] [address] Scheduled Procedures Name Priority Associated Diagnoses Date/Ti [...] filedocumented as of this encounter Care Teams Ballpoint Pens Assembler Relationship Specialty Start Date End Date Nixon Llamas MD [address] [place] [address] [place] [address] PCP - General 07/23/04 documented as of this encounter
--- OUTSIDE RECORDS SUMMARY | 2024-07-30 16:16 | External Medical Summary | Summary of Care ---
Author Name Unknown Organization [facility] Address [address] [place] [address] Phone [phone] Care Team Providers Care Certified Hearing Instrument Dispenser Name Role Phone Nixon Llamas MD Primary Care Provider Encounter Details Date Type Department Care Team (Latest Contact Info) Description 07/12/2024 11:42 AM EST - 07/12/2024 11:59 PM EST Hospital Encounter Radiology Film File [address] [place], [place] [id number] Arrived Discharge Disposition: Home - Self Care Allergies Active Allergy Reactions Criticality Noted Date [...] 08/21/2015 Penicillins Anaphylaxis High 07/25/2004 Pollen 09/22/2015 [place], insects, - eyes itch Shrimp Extract Unknown 08/21/2015 Skin Soft Fragrance Unknown 10/02/2022 documented as of this encounter (statuses as of 07/13/2024) Medications Omeprazole 40 MG Oral Capsule Delayed Release (PriLOSEC) One tab 1/2 hr prior to breakfast and one tab 1/2 prior to messi meal 60 Capsule 5 4 Active Fluticasone Propionate 50 MCG/ACT Nasal Suspension (Flonase) Administer 1 [place] into nostril as needed. Active Acetaminophen 325 [...] Industry Job Start Date Job End Date [place] [employer] at [employer] Not on file No t on file Not on file documented as of this encounter Plan of Treatment Upcoming Encounters Date Type Department Care Team ([facility] Contact Info) Description 01/17/2025 11:20 AM EDT Office Visit Dermatology [address] [phone] Jovon Artis PA-C [address] [place] [address] Scheduled Procedures Name Priority Associated Diagnoses Date/Ti me COLONOSCOPY FLEXIBLE PROXIMAL DIAGNOSTIC Recall History of colon polyps Health Maintenance Due Date Last Done Comments Depression Screening 1971 HIV Screening 11/14/1974 DTap/Tdap Vaccines (1 - Tdap) 11/14/1978 Cologuard 11/14/2004 Fecal Occult Blood Test 11/14/2004 Sigmoidoscopy 11/14/2004 Pneumococcal Vaccine: 50+ Years (1 of 1 - PCV) 11/14/2009 Zoster Vaccines (1 of 2) 11/14/2009 COVID-19 Vaccine ( - season) 2024 Influenza Vaccine (FLU shot) [...] interpreted or resulted by a [facility] or [facility] contracted radiologist. us Jovon Artis PA-C RADIOLOGY (RAD GENERAL) Fin al Result documented in this encounter Care Teams Certified Hearing Instrument Dispenser Relationship Specialty Start Date End Date Nixon Llamas MD [address] [place] [address] PCP - General 07/23/04 documented as of this encounter
--- OUTSIDE RECORDS SUMMARY | 2024-07-30 16:16 | External Medical Summary | Summary of Care ---
Author Name Unknown Organization [facility] Address [address] [place] [address] Phone [phone] Care Team Providers Care Control Valve Mechanic Name Role Phone Nixon Llamas MD Primary Care Provider Reason for Visit * Reason Onset Date Comments Medication Pre-auth 07/12/2024 Dupixent Encounter Details Date Type Department Care Team ([facility] Contact Info) Description 07/12/2024 Telephone Dermatology [facility] [address] [place] [address] Jovon Artis PA-C [address] [place] [address] Medication Pre-auth (Dupixent) Allergies Active Allergy Reactions Criticality Noted [...] 08/21/2015 Penicillins Anaphylaxis High 07/25/2004 Pollen 09/22/2015 [place], insects, - eyes itch Shrimp Extract Unknown 08/21/2015 Skin Soft Fragrance Unknown 10/02/2022 documented as of this encounter (statuses as of 07/14/2024) Medications Omeprazole 40 MG Oral Capsule Delayed Release (PriLOSEC) One tab 1/2 hr prior to breakfast and one tab 1/2 prior to messi meal 60 Capsule 5 4 Active Fluticasone Propionate 50 MCG/ACT Nasal Suspension (Flonase) Administer 1 [place] into nostril as needed. Active Acetaminophen 325 [...] Industry Job Start Date Job End Date [place] [employer] at [employer] Not on file No t on file Not on file documented as of this encounter Miscellaneous Notes * Telephone Encounter - Laura Moe RPh - 07/14/2024 3:01 PM EST [facility] 21 per provider. Please resubmit with information. Laura Moe, PharmD Medication Therapy Disease Management ([facility]) Dermatology Clinical Pharmacist 07/14/2024, 3:01 PM * Telephone Encounter - Laura Moe RPh - 07/14/2024 9:56 AM EST Images from the original note were not included. Insurance requiring documentation of the follow: Sending to provider to advise. Laura Moe PharmD Medication Therapy Disease Management ([facility]) Dermatology Clinical Pharmacist 07/14/2024, 9:56 AM * Telephone Encounter - Laura Moe RPh - 07/12/2024 12:53 PM EST [facility] Dermatology Pre-cert Request Please see Dermatology pre-cert request - route referral message with approval, denial or questionsback to "Dermatology Pharmacist Pool [[id number]]". - Per provider: Light therapy contraindicated due [...] of Care: specialty medication - route to [id number]. Referral to pharmacist for: Pharmacist Co-management See corresponding visit note(s) for additional supporting clinical information. Administration Location if Injection: Patient Administered at Home Is the patient in a facility?: No Office Information: Prescriber: Mirza Artis PA-C documented in this encounter Plan of Treatment Upcoming Encounters Date Type Department Care Team ([facility] Contact Info) Description 01/17/2025 11:20 AM EDT Office Visit Dermatology [facility] [address] [place] [address] Jovon Artis PA-C [address] [place], [place] [address] [phone] Scheduled Procedures Name Priority Associated Diagnoses Date/Ti [...] filedocumented as of this encounter Care Teams Control Valve Mechanic Relationship Specialty Start Date End Date Nixon Llamas MD [address] [place] [address] [place] [address] PCP - General 07/23/04 documented as of this encounter
--- OUTSIDE RECORDS SUMMARY | 2024-07-30 16:16 | External Medical Summary | Summary of Care ---
Author Name Unknown Organization [facility] Address [address] [place] [address] Phone [phone] Care Team Providers Care Stereotype Caster Name Role Phone Nixon Llamas MD Primary Care Provider Reason for Visit * Reason Onset Date Comments Precert Denied 07/12/2024 Dupixent Encounter Details Date Type Department Care Team ([facility] Contact Info) Description 07/12/2024 Telephone Dermatology [facility] [address] [place] [address] Jovon Artis PA-C [address] [place] [address] Precert Denied (Dupixent) Allergies Active Allergy Reactions [...] 08/21/2015 Penicillins Anaphylaxis High 07/25/2004 Pollen 09/22/2015 [place], insects, - eyes itch Shrimp Extract Unknown 08/21/2015 Skin Soft Fragrance Unknown 10/02/2022 documented as of this encounter (statuses as of 07/14/2024) Medications Omeprazole 40 MG Oral Capsule Delayed Release (PriLOSEC) One tab 1/2 hr prior to breakfast and one tab 1/2 prior to messi meal 60 Capsule 5 4 Active Fluticasone Propionate 50 MCG/ACT Nasal Suspension (Flonase) Administer 1 [place] into nostril as needed. Active Acetaminophen 325 [...] Industry Job Start Date Job End Date [employer] at [employer] Not on file No t on file [...] Moe RPh - 07/12/2024 12:53 PM EST [facility] Dermatology Pre-cert Request Please see Dermatology pre-cert request - route referral message with approval, denial or questionsback to "Dermatology Pharmacist Pool [[id number]]". - Per provider: Light therapy contraindicated due [...] of Care: specialty medication - route to [id number]. Referral to pharmacist for: Pharmacist Co-management See corresponding visit note(s) for additional supporting clinical information. Administration Location if Injection: Patient Administered at Home Is the patient in a facility?: No Office Information: Prescriber: Mirza Artis PA-C documented in this encounter Plan of Treatment Upcoming Encounters Date Type Department Care Team ([facility] Contact Info) Description 01/17/2025 11:20 AM EDT Office Visit Dermatology [facility] [address] [place] [phone] Jovon Artis PA-C [address] [place] [address] Scheduled Procedures Name Priority Associated Diagnoses Date/Ti [...] filedocumented as of this encounter Care Teams Stereotype Caster Relationship Specialty Start Date End Date Nixon Llamas MD [address] [place] [address] [place] [phone] PCP - General 07/23/04 documented as of this encounter
--- OUTSIDE RECORDS SUMMARY | 2024-07-30 16:16 | External Medical Summary | Summary of Care ---
Author Name Unknown Organization [facility] Address [address] [place] [address] Phone [phone] Care Team Providers Care Parts Clerk Plant Maintenance Name Role Phone Nixon Llamas MD Primary Care Provider Reason for Visit * Reason Onset Date Comments Precert Denied 07/12/2024 Dupixent Encounter Details Date Type Department Care Team ([facility] Contact Info) Description 07/12/2024 Telephone Dermatology [facility] [address] [place] [address] Jovon Artis PA-C [address] [place] [address] Precert Denied (Dupixent) Allergies Active Allergy Reactions [...] 08/21/2015 Penicillins Anaphylaxis High 07/25/2004 Pollen 09/22/2015 [place], insects, - eyes itch Shrimp Extract Unknown 08/21/2015 Skin Soft Fragrance Unknown 10/02/2022 documented as of this encounter (statuses as of 07/19/2024) Medications Omeprazole 40 MG Oral Capsule Delayed Release (PriLOSEC) One tab 1/2 hr prior to breakfast and one tab 1/2 prior to messi meal 60 Capsule 5 4 Active Fluticasone Propionate 50 MCG/ACT Nasal Suspension (Flonase) Administer 1 [place] into nostril as needed. Active Acetaminophen 325 [...] Industry Job Start Date Job End Date [place] [employer] at [employer] Not on file No t on file [...] Laura Moe PharmD Medication Therapy Disease Management ([facility]) Dermatology Clinical Pharmacist 07/19/2024, 9:24 AM * Telephone Encounter - Laura Moe RPh - 07/14/2024 3:01 PM EST [facility] 21 per provider. Please resubmit with information. Laura Moe PharmD Medication Therapy Disease Management ([facility]) Dermatology Clinical Pharmacist 07/14/2024, 3:01 PM * Telephone Encounter - Laura Moe RPh - 07/14/2024 9:56 AM EST Images from the original note were not included. Insurance requiring documentation of the follow: Sending to provider to advise. Laura Moe PharmD Medication Therapy Disease Management ([facility]) Dermatology Clinical Pharmacist 07/14/2024, 9:56 AM * Telephone Encounter - Laura Moe RPh - 07/12/2024 12:53 PM EST [facility] Dermatology Pre-cert Request Please see Dermatology pre-cert request - route referral message with approval, denial or questionsback to "Dermatology Pharmacist Pool [[id number]]". - Per provider: Light therapy contraindicated due [...] of Care: specialty medication - route to [id number]. Referral to pharmacist for: Pharmacist Co-management See corresponding visit note(s) for additional supporting clinical information. Administration Location if Injection: Patient Administered at Home Is the patient in a facility?: No Office Information: Prescriber: Mirza Artis PA-C documented in this encounter Plan of Treatment Upcoming Encounters Date Type Department Care Team ([facility] Contact Info) Description 01/17/2025 11:20 AM EDT Office Visit Dermatology [address] [phone] Jovon Artis PA-C [address] [place] [address] Scheduled Procedures Name Priority Associated Diagnoses Date/Ti [...] filedocumented as of this encounter Care Teams Parts Clerk Plant Maintenance Relationship Specialty Start Date End Date Nixon Llamas MD [address] [place] [address] [place] [address] PCP - General 07/23/04 documented as of this encounter
--- OUTSIDE RECORDS SUMMARY | 2024-07-30 16:16 | External Medical Summary | Summary of Care ---
Author Name Unknown Organization [facility] Address [address] [place] [address] Phone [phone] Care Team Providers Care Telecom Assistant Name Role Phone Nixon Llamas MD Primary Care Provider Reason for Visit * Reason Onset Date Comments Precert Denied 07/12/2024 Dupixent Encounter Details Date Type Department Care Team ([facility] Contact Info) Description 07/12/2024 Telephone Dermatology [facility] [address] [place] [address] Jovon Artis PA-C [address] [place], [place] [phone] Precert Denied (Dupixent) Allergies Active Allergy Reactions [...] 08/21/2015 Penicillins Anaphylaxis High 07/25/2004 Pollen 09/22/2015 [place], insects, - eyes itch Shrimp Extract Unknown 08/21/2015 Skin Soft Fragrance Unknown 10/02/2022 documented as of this encounter (statuses as of 07/28/2024) Medications Omeprazole 40 MG Oral Capsule Delayed Release (PriLOSEC) One tab 1/2 hr prior to breakfast and one tab 1/2 prior to messi meal 60 Capsule 5 4 Active Fluticasone Propionate 50 MCG/ACT Nasal Suspension (Flonase) Administer 1 [place] into nostril as needed. Active Acetaminophen 325 [...] Industry Job Start Date Job End Date [place] [employer] at [employer] Not on file No t on file Not on file documented as of this encounter Miscellaneous Notes * Telephone Encounter - Laura Moe RPh - 07/28/2024 9:49 AM EST Per provider, holding off until we hear back from patient. Laura Moe, PharmD Medication Therapy Disease Management ([facility]) Dermatology Clinical Pharmacist 07/28/2024, 9:49 AM * Telephone Encounter - Laura Moe RPh - 07/19/2024 9:57 AM EST Discussed with provider. Will appeal once form obtained from patient. Of note- BSA 15-25 % . Laura Moe PharmD Medication Therapy Disease Management ([facility]) Dermatology Clinical Pharmacist 07/19/2024, 9:57 AM * [...] Laura Moe PharmD Medication Therapy Disease Management ([facility]) Dermatology Clinical Pharmacist 07/19/2024, 9:24 AM * Telephone Encounter - Laura Moe RPh - 07/14/2024 3:01 PM EST [facility] 21 per provider. Please resubmit with information. Laura Moe PharmD Medication Therapy Disease Management ([facility]) Dermatology Clinical Pharmacist 07/14/2024, 3:01 PM * Telephone Encounter - Laura Moe RPh - 07/14/2024 9:56 AM EST Images from the original note were not included. Insurance requiring documentation of the follow: Sending to provider to advise. Laura Moe PharmD Medication Therapy Disease Management ([facility]) Dermatology Clinical Pharmacist 07/14/2024, 9:56 AM * Telephone Encounter - Laura Moe RPh - 07/12/2024 12:53 PM EST [facility] Dermatology Pre-cert Request Please see Dermatology pre-cert request - route referral message with approval, denial or questionsback to "Dermatology Pharmacist Pool [[id number]]". - Per provider: Light therapy contraindicated due [...] of Care: specialty medication - route to [id number]. Referral to pharmacist for: Pharmacist Co-management See corresponding visit note(s) for additional supporting clinical information. Administration Location if Injection: Patient Administered at Home Is the patient in a facility?: No Office Information: Prescriber: Mirza Artis PA-C documented in this encounter Plan of Treatment Upcoming Encounters Date Type Department Care Team ([facility] Contact Info) Description 01/17/2025 11:20 AM EDT Office Visit Dermatology [facility] [address] [place] [phone] Jovon Artis PA-C [address] [place], [place] [address] [place] [address] Scheduled Procedures Name Priority Associated Diagnoses Date/Ti [...] filedocumented as of this encounter Care Teams Telecom Assistant Relationship Specialty Start Date End Date Nixon Llamas MD [address] [place] [address] [place] [address] PCP - General 07/23/04 documented as of this encounter
--- OUTSIDE RECORDS SUMMARY | 2024-07-30 16:16 | External Medical Summary | Summary of Care ---
Author Name Unknown Organization [facility] Address [address] [place] [address] Phone [phone] Care Team Providers Care Esters And Emulsifiers Supervisor Name Role Phone Nixon Llamas MD Primary Care Provider Reason for Visit * Reason Onset Date Comments Precert In Process 07/12/2024 20 leo kelsi Velasquezixemanuel Encounter Details Date Type Department Care Team ([facility] Contact Info) Description 07/12/[address] [facility] [address] [place] [address] Jovon Artis PA-C [address] [place] [address] Precert In Process (20 leo federal Dupix... Allergies Active Allergy Reactions Criticality Noted Date [...] 08/21/2015 Penicillins Anaphylaxis High 07/25/2004 Pollen 09/22/2015 [place], insects, - eyes itch Shrimp Extract Unknown 08/21/2015 Skin Soft Fragrance Unknown 10/02/2022 documented as of this encounter (statuses as of 07/15/2024) Medications Omeprazole 40 MG Oral Capsule Delayed Release (PriLOSEC) One tab 1/2 hr prior to breakfast and one tab 1/2 prior to messi meal 60 Capsule 5 4 Active Fluticasone Propionate 50 MCG/ACT Nasal Suspension (Flonase) Administer 1 [place] into nostril as needed. Active Acetaminophen 325 [...] as of this encounter (statuses as of 07/15/2024) Active Problems Problem Noted Date Diagnosed Date [...] as of this encounter (statuses as of 07/15/2024) Resolved Problems Problem Noted Date Diagnosed Date Resolved Date ADVANCE DIRECTIVE INFORMATION 04/26/2010 03/29/2024 Overview (04/26/2010): Yes, Patient instructed to provide copy of advance directive for provider to review and to be scanned into Electronic Medical Record documented as of this encounter (statuses as of 07/15/2024) Immunizations Name Administration Dates Next Due Seasonal [...] Industry Job Start Date Job End Date [place] [employer] at [employer] Not on file No t on file Not on file documented as of this encounter Miscellaneous Notes * Telephone Encounter - Laura Moe RPh - 07/14/2024 3:01 PM EST [facility] 21 per provider. Please resubmit with information. Laura Moe, Mitzi Medication Therapy Disease Management ([facility]) Dermatology Clinical Pharmacist 07/14/2024, 3:01 PM * Telephone Encounter - Laura Moe RPh - 07/14/2024 9:56 AM EST Images from the original note were not included. Insurance requiring documentation of the follow: Sending to provider to advise. Laura Moe PharmD Medication Therapy Disease Management ([facility]) Dermatology Clinical Pharmacist 07/14/2024, 9:56 AM * Telephone Encounter - Laura Moe RPh - 07/12/2024 12:53 PM EST [facility] Dermatology Pre-cert Request Please see Dermatology pre-cert request - route referral message with approval, denial or questionsback to "Dermatology Pharmacist Pool [[id number]]". - Per provider: Light therapy contraindicated due [...] of Care: specialty medication - route to [id number]. Referral to pharmacist for: Pharmacist Co-management See corresponding visit note(s) for additional supporting clinical information. Administration Location if Injection: Patient Administered at Home Is the patient in a facility?: No Office Information: Prescriber: Mirza Artis PA-C documented in this encounter Plan of Treatment Upcoming Encounters Date Type Department Care Team ([facility] Contact Info) Description 01/17/2025 11:20 AM EDT Office Visit Dermatology [facility] [address] [place] [phone] Jovon Artis PA-C [address] [place] [address] [place] [address] Scheduled Procedures Name Priority Associated Diagnoses Date/Ti [...] filedocumented as of this encounter Care Teams Esters And Emulsifiers Supervisor Relationship Specialty Start Date End Date Nixon Llamas MD [address] [place] [address] [place] [address] PCP - General 07/23/04 documented as of this encounter
--- OUTSIDE RECORDS SUMMARY | 2024-07-30 16:16 | External Medical Summary | Summary of Care ---
Author Name Unknown Organization [facility] Address [address] [place] [address] Phone [phone] Care Team Providers Care Finish Repair Worker Name Role Phone Nixon Llamas MD Primary Care Provider Reason for Visit * Reason Onset Date Comments Precert Denied 07/12/2024 Dupixent Encounter Details Date Type Department Care Team ([facility] Contact Info) Description 07/12/2024 Telephone Dermatology [facility] [address] [place] [address] Jovon Artis PA-C [address] [place] [address] Precert Denied (Dupixent) Allergies Active Allergy Reactions [...] 08/21/2015 Penicillins Anaphylaxis High 07/25/2004 Pollen 09/22/2015 [place], insects, - eyes itch Shrimp Extract Unknown 08/21/2015 Skin Soft Fragrance Unknown 10/02/2022 documented as of this encounter (statuses as of 07/16/2024) Medications Omeprazole 40 MG Oral Capsule Delayed Release (PriLOSEC) One tab 1/2 hr prior to breakfast and one tab 1/2 prior to messi meal 60 Capsule 5 4 Active Fluticasone Propionate 50 MCG/ACT Nasal Suspension (Flonase) Administer 1 [place] into nostril as needed. Active Acetaminophen 325 [...] as of this encounter (statuses as of 07/16/2024) Active Problems Problem Noted Date Diagnosed Date [...] as of this encounter (statuses as of 07/16/2024) Resolved Problems Problem Noted Date Diagnosed Date Resolved Date ADVANCE DIRECTIVE INFORMATION 04/26/2010 03/29/2024 Overview (04/26/2010): Yes, Patient instructed to provide copy of advance directive for provider to review and to be scanned into Electronic Medical Record documented as of this encounter (statuses as of 07/16/2024) Immunizations Name Administration Dates Next Due Seasonal [...] Industry Job Start Date Job End Date [employer] at [employer] Not on file No t on file [...] Laura Moe PharmD Medication Therapy Disease Management ([facility]) Dermatology Clinical Pharmacist 07/14/2024, 9:56 AM * Telephone Encounter - Laura Moe RPh - 07/12/2024 12:53 PM EST [facility] Dermatology Pre-cert Request Please see Dermatology pre-cert request - route referral message with approval, denial or questionsback to "Dermatology Pharmacist Pool [[id number]]". - Per provider: Light therapy contraindicated due [...] of Care: specialty medication - route to [id number]. Referral to pharmacist for: Pharmacist Co-management See corresponding visit note(s) for additional supporting clinical information. Administration Location if Injection: Patient Administered at Home Is the patient in a facility?: No Office Information: Prescriber: Mirza Artis PA-C documented in this encounter Plan of Treatment Upcoming Encounters Date Type Department Care Team (Late st Contact Info) Description 01/17/2025 11:20 AM EDT Office Visit Dermatology [facility] [address] [place] [address] Jovon Artis PA-C [address] [place] [address] [place] [phone] Scheduled Procedures Name Priority Associated Diagnoses Date/Ti [...] filedocumented as of this encounter Care Teams Finish Repair Worker Relationship Specialty Start Date End Date Nixon Llamas MD [facility] [place] [address] [place] [address] PCP - General 07/23/04 documented as of this encounter
--- OUTSIDE RECORDS SUMMARY | 2024-07-30 16:17 | External Medical Summary | Summary of Care ---
Author Name Unknown Organization [facility] Address [address] [place] [address] Phone [phone] Care Team Providers Care Tank Builder And Erector Name Role Phone Nixon Llamas MD Primary Care Provider Reason for Visit * Precert (Within 24 hrs (call dept; emergent)) - Pending Review Specialty Diagnoses / Procedures Referred By Dinaac t Referred To Contact Radiology Diagnoses Cyst of kidney, acquired Procedures CT ABD/PELVIS WO IV/ORAL CONTRAST CT ABD/PELVIS W WO IV CONTRAST AND W ORAL CONT Nixon Llamas MD [facility] [address] [address] Phone: tel: fax: Referral ID Status Reason Start Date Expiration Date V isits Requested Visits Authorized [id number] Pending Review 06/26/[phone] Encounter Details Date Type Department Care Team (Latest Contact Info) Description 06/28/2024 12:18 PM EST - 06/28/2024 11:59 PM EST Hospital Encounter Radiology, [address] [address] Arrived Discharge Disposition: Home - Self Care [...] 08/21/2015 Penicillins Anaphylaxis High 07/25/2004 Pollen 09/22/2015 [place], insects, - eyes itch Shrimp Extract Unknown 08/21/2015 Skin Soft Fragrance Unknown 10/02/2022 documented as of this encounter (statuses as of 06/29/2024) Medications Omeprazole 40 MG Oral Capsule Delayed Release (PriLOSEC) One tab 1/2 hr prior to breakfast and one tab 1/2 prior to messi meal 60 Capsule 5 4 Active Fluticasone Propionate 50 MCG/ACT Nasal Suspension (Flonase) Administer 1 [place] into nostril as needed. Active Acetaminophen 325 MG Oral Tablet (Tylenol) Take 1 Tablet by mouth every 6 hours as needed. Active documented as of this encounter (statuses as of 06/29/2024) Active Problems Problem Noted Date Diagnosed Date [...] as of this encounter (statuses as of 06/29/2024) Resolved Problems Problem Noted Date Diagnosed Date Resolved Date ADVANCE DIRECTIVE INFORMATION 04/26/2010 03/29/2024 Overview (04/26/2010): Yes, Patient instructed to provide copy of advance directive for provider to review and to be scanned into Electronic Medical Record documented as of this encounter (statuses as of 06/29/2024) Immunizations Name Administration Dates Next Due Seasonal [...] Industry Job Start Date Job End Date [place] [employer] at [employer] Not on file No t on file Not on file documented as of this encounter Miscellaneous Notes * Ancillary Progress Note - Buck Sanchez RT - 06/28/2024 12:30 PM EST Spoke with Dr. Cary Llamas to check images of the adrenals before injecting contrast. He said the adrenal cyst is stable and no further imaging was necessary. documented in this encounter Plan of Treatment Upcoming Encounters Date Type Department Care Team (Late st Contact Info) Description 07/12/2024 11:20 AM EST Office Visit Dermatology [facility] [address] [place] [address] Jovon Artis PA-C [address] [place] [address] [place] [phone] Scheduled Procedures Name Priority Associated Diagnoses Date/Ti [...] Procedure Name Priority Date/Time Associated Diagnosis Comments CT ABD/PELVIS WO IV/ORAL CONTRAST STAT 06/28/2024 12:46 PM EST Cyst of kidney, acquired documented in this encounter Results * CT ABD/PELVIS WO IV/ORAL CONTRAST (06/28/2024 12:46 PM EST) Anatomical Region Laterality Modality Body, Abdomen, Pelvis Computed T omography 06/28/2024 1:55 PM EST Impressions 06/28/2024 1:52 PM EST IMPRESSION: 1. Stable 2.7 x 2.0 cm peripherally calcified hypodense right adrenal nodule. 2. Diffuse hepatic steatosis. Stable 7 mm segment 7 hypodensity which is too small to characterize. Narrative 06/28/2024 1:52 PM EST EXAM: EXAM: CT ABD/PELVIS WO IV/ORAL CONTRAST DATE TIME: 06/28/2024 - 06/28/2024 12:46 pm HISTORY: 63 y/o M kidney cyst TECHNIQUE: CT of the Abdomen and Pelvis was performed without intravenous contrast. COMPARISON: CT abdomen and pelvis dated 01/19/2024. FINDINGS: LOWER CHEST: Within normal limits. LIVER: Diffuse hepatic steatosis. Stable 7 mm segment 7 hypodensity which is too small to characterize. BILE DUCTS: Normal caliber. GALLBLADDER: Cholecystectomy. SPLEEN: Within normal limits. PANCREAS: Within normal limits. ADRENALS: Stable 2.7 x 2.0 cm peripherally calcified hypodense right adrenal nodule. Normal left adrenal gland. KIDNEYS/URETERS: Within normal limits. BLADDER: Within normal limits. REPRODUCTIVE ORGANS: Prostate is enlarged. BOWEL: Small hiatal hernia. No bowel obstruction. Colonic diverticulosis without diverticulitis. PERITONEUM: No ascites. VESSELS: Minimal atheromatous disease of the abdominal aorta and its pelvic branches. RETROPERITONEUM: No lymphadenopathy. ABDOMINAL WALL: Within normal limits. BONES: Degenerative changes of the spine. Procedure Note Farrah Carey MD - 06/28/2024 EXAM: EXAM: CT ABD/PELVIS WO IV/ORAL CONTRAST DATE TIME: 06/28/2024 - 06/28/2024 12:46 pm HISTORY: 63 y/o M kidney cyst TECHNIQUE: CT of the Abdomen and Pelvis was performed without intravenous contrast. COMPARISON: CT abdomen and pelvis dated 01/19/2024. FINDINGS: LOWER CHEST: Within normal limits. LIVER: Diffuse hepatic steatosis. Stable 7 mm segment 7 hypodensity whichis too small to characterize. BILE DUCTS: Normal caliber. GALLBLADDER: Cholecystectomy. SPLEEN: Within normal limits. PANCREAS: Within normal limits. ADRENALS: Stable 2.7 x 2.0 cm peripherally calcified hypodense rightadrenal nodule. Normal left adrenal gland. KIDNEYS/URETERS: Within normal limits. BLADDER: Within normal limits. REPRODUCTIVE ORGANS: Prostate is enlarged. BOWEL: Small hiatal hernia. No bowel obstruction. Colonic diverticulosiswithout diverticulitis. PERITONEUM: No ascites. VESSELS: Minimal atheromatous disease of the abdominal aorta and itspelvic branches. RETROPERITONEUM: No lymphadenopathy. ABDOMINAL WALL: Within normal limits. BONES: Degenerative changes of the spine. IMPRESSION IMPRESSION: 1. Stable 2.7 x 2.0 cm peripherally calcified hypodense right adrenalnodule. 2. Diffuse hepatic steatosis. Stable 7 mm segment 7 hypodensity which istoo small to characterize. Nixon Llamas MD RAD CT Final Result documented in this encounter Visit Diagnoses Diagnosis Cyst of kidney, acquired Acquired cyst of kidney documented in this encounter Care Teams Tank Builder And Erector Relationship Specialty Start Date End Date Nixon Llamas MD [facility] [place] [address] [place] [address] PCP - General 07/23/04 documented as of this encounter
--- OUTSIDE RECORDS SUMMARY | 2024-07-30 16:17 | External Medical Summary ---
Author Name Unknown Address Unknown Organization [id number]:[facility] [address] [place] [address] Laboratory Report Ordering Provider Test Date Status SHAR AGUILAR 06/23/2024 12:38:13 Final Observation Date Value Abnormality Reference (Units ) Status T3, Total 06/23/2024 12:38:13 142 80-200 (ng /dL) Final Performing Location [facility] - [address] [place] [address]
--- OUTSIDE RECORDS SUMMARY | 2024-07-30 16:17 | External Medical Summary ---
Author Name Unknown Address Unknown Organization K01:[facility] - [address] [place] [address] Laboratory Report Ordering Provider Test Date Status SHAR AGUILAR 06/23/2024 12:38:13 Final Observation Date Value Abnormality Reference (Units ) Status SYNC LEUKOCYTES IN BLOOD BY AUTOMATED COUNT 06/23/2024 12:38:13 8.26 4.00-10.80 (K/uL) Final Segs 06/23/2024 12:38:13 57.9 40.0-75.0 (%) Final Lymphs % 06/23/2024 12:38:13 25.8 18.0-42.0 (%) Final Monos 06/23/2024 12:38:13 7.1 1.0-11.0 (%) Final Eosinophils 06/23/2024 12:38:13 7.1 Above high normal 0.0-6.0 (%) Final Basos 06/23/2024 12:38:13 0.8 0.0-2.0 (%) Final Immature Granulocyte, Percent 06/23/2024 12:38:13 1.3 0.0-2.0 (%) Final Absolute Segs 06/23/2024 12:38:13 4.77 1.80-7.70 (K/uL) Final Lymphs, absolute 06/23/2024 12:38:13 2.13 1.00-4.80 (K/ul) Final Monos, Abs 06/23/2024 12:38:13 0.59 0.00-1.10 (K/uL) Final Eos, Abs 06/23/2024 12:38:13 0.59 0.00-0.70 (K/uL) Final Basos, Abs 06/23/2024 12:38:13 0.07 0.00-0.20 (K/uL) Final Immature Granulocytes, Number 06/23/2024 12:38:13 0.11 0.00-0.20 (K/uL) Final Performing Location [facility] - [address] [facility] [address]
--- OUTSIDE RECORDS SUMMARY | 2024-07-30 16:17 | External Medical Summary ---
Author Name Unknown Address Unknown Organization K01:[facility] - [address] [place] [address] Laboratory Report Ordering Provider Test Date Status LAM AGUILAREL 06/23/2024 12:38:13 Final Observation Date Value Abnormality Reference (Units ) Status TSH 06/23/2024 12:38:13 2.29 0.27-4.20 (uIU/mL) Final Performing Location [facility] - [address] [place] [address]
--- OUTSIDE RECORDS SUMMARY | 2024-07-30 16:17 | External Medical Summary | Summary of Care ---
Author Name Unknown Organization [facility] Address [address] [place] [address] Phone [phone] Care Team Providers Care Risk And Compliance Analytics Director Name Role Phone Nixon Llamas MD Primary Care Provider Reason for Visit * Reason Comments Skin Check Patient presents tod ay for skin check. Lesion on L side of face. Rash on legs, back, buttock. Encounter Details Date Type Department Care Team ([facility] Contact Info) Description 07/12/2024 11:20 AM EST Office Visit Dermatology [facility] [address] [place] [address] Jovon Artis PA-C [address] [place] [address] Allergic contact dermatitis, unspecified trigger*; Atopic dermatitis, [...] 08/21/2015 Penicillins Anaphylaxis High 07/25/2004 Pollen 09/22/2015 [place], insects, - eyes itch Shrimp Extract Unknown 08/21/2015 Skin Soft Fragrance Unknown 10/02/2022 documented as of this encounter (statuses as of 07/12/2024) Medications Omeprazole 40 MG Oral Capsule Delayed Release (PriLOSEC) One tab 1/2 hr prior to breakfast and one tab 1/2 prior to messi meal 60 Capsule 5 4 Active Fluticasone Propionate 50 MCG/ACT Nasal Suspension (Flonase) Administer 1 [place] into nostril as needed. Active Acetaminophen 325 [...] Industry Job Start Date Job End Date [place] [employer] at [employer] Not on file No t on [...] 50 MCG/ACT Nasal Suspension (Flonase) Administer 1 [place] into nostril as needed. Acetaminophen 325 MG Oral Tablet (Tylenol) Take 1 Tablet by mouth every 6 hours as needed. No current facility-administered medications for this visit. ALLERG IES: Augmentin [amoxicillin-pot clavulanate], Ciprofloxacin, Clavulanic acid, Pcn [penicillins], Asa [salicylates], Avelox [moxifloxacin hcl in nacl], Bacitracin, Bactrim [sulfamethoxazole-trimethoprim], Birds, Iodine, Moxifloxacin, Mushroom extract complex (do not select), [place] bark [quercus robur], Other allergy (see comments), [...] ADDRESS AVAILABLE PCP: NIXON LLAMAS [facility] [place] [address] [place] [address] documented in this encounter Nursing Notes * Xin King LPN - 07/12/2024 10:56 AM EST Patient identified by name and date. Chief Complaint Patient presents with Skin Check Patient presents today for skin check. Lesion on L side of face. Rash on legs, back, buttock. documented in this encounter Plan of Treatment Upcoming Encounters Date Type Department Care Team ([facility] st Contact Info) Description 01/17/2025 11:20 AM EDT Office Visit Dermatology [facility] [address] [place] [address] Jovon Artis PA-C [address] [place] [address] Scheduled Procedures Name Priority Associated Diagnoses Date/Ti [...] interpreted or resulted by a [facility] or [facility] [employer] contracted radiologist. Jovon Artis PA-C RADIOLOGY (RAD GENERAL) Fin al Result documented in this encounter Visit Diagnoses Diagnosis Allergic contact dermatitis, unspecified trigger- Primary Atopic dermatitis, unspecified type Verrucous keratosis Other specified dermatoses History of nonmelanoma skin cancer Personal history of other malignant neoplasm of skin documented in this encounter Care Teams Risk And Compliance Analytics Director Relationship Specialty Start Date End Date Nixon Llamas MD [address] [place] [address] [place] [address] PCP - General 07/23/04 documented as of this encounter
--- OUTSIDE RECORDS SUMMARY | 2024-07-30 16:17 | External Medical Summary ---
Author Name Unknown Address Unknown Organization K01:[facility] [address] [place] [address] Laboratory Report Ordering Provider Test Date Status SHAR AGUILAR 06/23/2024 12:38:13 Final Observation Date Value Abnormality Reference (Units ) Status Folic Acid 06/23/2024 12:38:13 11.1 >4.5 (ng/ mL) Final Performing Location [facility] - [address] [place] [address]
--- OUTSIDE RECORDS SUMMARY | 2024-07-30 16:17 | External Medical Summary ---
Author Name Unknown Address Unknown Organization K01[facility] [address] [facility] [address] Laboratory Report Ordering Provider Test Date Status SHAR AGUILAR 06/23/2024 12:38:13 Final Observation Date Value Abnormality Reference (Units ) Status Triglyceride 06/23/2024 12:38:13 131 <=174 ( mg/dL) Final Triglyceride Reference Range s (mg/dL):
<150 Acceptable
150-174 Borderline high
175-499 High
>=500 Very high Cholesterol 06/23/2024 12:38:13 164 <200 (mg /dL) Final Total Cholesterol Reference Ranges (mg/dL):
<200 Desirable
200-239 Borderline high
>=240 High HDL 06/23/2024 12:38:13 27 Below low normal >39 (mg/dL) Final HDL Cholesterol Reference Ra nges (mg/dL):
>=60 High (Desirable)
<50 Low (Undesirable) For Females
<40 Low (Undesirable) For Males NON-HDL CHOLESTEROL 06/23/2024 12:38:13 137 <=159 (mg/dL) Final Non-HDL Cholesterol Referenc e Range (mg/dL):
<100 Target level for high risk ASCVD patient
<130 Optimal for general population
130-159 Near optimal for general population
160-189 Borderline High
190-219 High
>=220 Very High LDL, (calculated) 06/23/2024 12:38:13 111 <= 129 (mg/dL) Final LDL Cholesterol Reference Ra nges (mg/dL):
<70 Target level for high risk ASCVD patient
<100 Optimal for general population
100-129 Near optimal for general population
130-159 Borderline high
160-189 High
>=190 Very high Performing Location LAB[facility]AT[facility] - [address] [facility] [place] [facility] [address]
--- OUTSIDE RECORDS SUMMARY | 2024-07-30 16:17 | External Medical Summary | Summary of Care ---
Author Name Unknown Organization [facility] Address [address] [place] [address] Phone [phone] Care Team Providers Care Transformer Stock Clerk Name Role Phone Nixon Llamas MD Primary Care Provider Reason for Visit * Reason Onset Date Comments Preop Pt Assessment 05/25/2024 Encounter Details Date Type Department Care Team ([facility] Contact Info) Description 05/25/2024 Telephone [facility] [address] [place] [address] Olman Stroud Jr., MD [address] [place] [address] Preop Pt Assessment Allergies Active Allergy Reactions Criticality Noted Date [...] 08/21/2015 Penicillins Anaphylaxis High 07/25/2004 Pollen 09/22/2015 [place], insects, - eyes itch Shrimp Extract Unknown 08/21/2015 Skin Soft Fragrance Unknown 10/02/2022 documented as of this encounter (statuses as of 05/25/2024) Medications Omeprazole 40 MG Oral Capsule Delayed Release (PriLOSEC) One tab 1/2 hr prior to breakfast and one tab 1/2 prior to messi meal 60 Capsule 5 4 Active documented as of this encounter (statuses as of 05/25/2024) Active Problems Problem Noted Date Diagnosed Date [...] as of this encounter (statuses as of 05/25/2024) Resolved Problems Problem Noted Date Diagnosed Date Resolved Date ADVANCE DIRECTIVE INFORMATION 04/26/2010 03/29/2024 Overview (04/26/2010): Yes, Patient instructed to provide copy of advance directive for provider to review and to be scanned into Electronic Medical Record documented as of this encounter (statuses as of 05/25/2024) Immunizations Name Administration Dates Next Due Seasonal [...] Industry Job Start Date Job End Date [employer] at [employer] Not on file No t on file Not on file documented as of this encounter Miscellaneous Notes * Telephone Encounter - Alyx Parham RN - 05/25/2024 3:[address] [facility] [place] Additional Pre-Procedure Call Items Name: Jamie Webb Date: 05/25/2024 Time: 3:57 PM Procedure: Colonoscopy Additional Pre-Procedure Call Items Identified correct procedure and procedural physician Yes For this appointment, you do need to have a wagon driver salesperson. You will not be able to work or drive that day.If you are using public transportation, you still need to have someone ride with you. When you arrive for appointment, please have your wagon driver salesperson, your photo ID and insurance cards available. Remove all jewelry and leave your valuables with your wagon driver salesperson or at home. NPO-Emphasized nothing to eat or drink after midnight or their procedure will be delayed or potentially cancelled. This includes drinks, food, candy, gum or anything else that would be swallowed. Medications recommended to be taken: N/A Medications recommended to be held or dose adjusted with approval from ordering provider: N/A Please take recommended prescription medications with a sip of water, but nothing more than a sip of water before n/a (2 hours prior to arrival). Anything more than a sip of water will either delay or cancel your procedure. Any significant changes to your health since scheduling endoscopy? No Call [phone] or [phone] between 2 & 4:30 pm, M-F, with any concerns or questions and to complete preprocedure interview. Reviewed procedural preparation: [facility] [place] MIRALAX PRE-PROCEDURE INSTRUCTIONS 1. TRANSPORTATION: You will be receiving sedation for this procedure and will NOT be permitted to drive home -someone MUST be available to drive you home. If you are using [employer]EP [employer] or [employer]AXI, someone other than the wagon driver salesperson must be available to ride home with you. 2. PURCHASE: Dulcolax LAXATIVE TABLETS (bisacodyl tablets) - 6 tablets needed over the counter Miralax (Glycolax) 238 gram/8.3-ounce container - over the counter Gatorade 64 ounces or 2 quarts (any flavor except red) - DIABETIC PATIENTS- [address] of Crystal light in place of Gatorade 3. MEDICATION INSTRUCTIONS: PLEASE STOP 7 days before procedure: Iron, Fish oil, [place]-3, Cod liver oil PLEASE STOP 5 days before procedure: Effient (prasugrel), Plavix (clopidogrel), Brilinta (ticagrelor), Arixtra (fondaparinux-5mg dose orhigher), Coumadin/Jantoven/Warfarin PLEASE STOP 3 days before your procedure: Aggrenox (dipyridamole/aspirin), Arixtra (fondaparinux- 2.5mg dose) PLEASE STOP 2 days before your procedure: Savaysa (edoxaban), Pletal (Cilostazol) Xarelto (rivaroxaban) or Eliquis (apixaban) - if you have CHRONIC KIDNEY DISEASE, you may need to stop these medications 4 days prior- please talk to your prescribing doctor. Pradaxa (dabigatran) -- if you have CHRONIC KIDNEY DISEASE, you may need to stop this medication 5 days prior- please talk to your prescribing doctor. LOVENOX - last dose should be 24 hours before scheduled procedure. TICLID (ticlopidine) or ZONTIVITY (Vorapaxar) - please ask your prescribing doctor when and if you may stop these medications Medications that bind up or slow down bowel movements should be stopped 3 days prior: Colestid, Codeine, Imodium, Lomotil, Questran, Metamucil, Citrucel, fiber products. Tylenol/Acetaminophen products, Aspirin, and NSAIDS (Non-Steroidal Anit- Inflammatory Drugs) such asAdvil, Ibuprofen, Aleve, Naproxen, are acceptable to use prior to the procedure. DIABETIC PATIENTS: ORAL diabetic medications: DO NOT take these the morning of the procedure. INSULIN DEPENDENT: Check your blood sugar the morning of the procedure. If this is less than 90 or greater than 250, please call us immediately at [phone] for directions. GLP 1 AGONISTS: Due to the increase use of Glucagon-Like Peptide-1 Receptor Agonists; Such as Trulicity, Byetta, Ozempic, Wegovy both for control for type 2 diabetes mellitus and weight loss, appropriate patient safety measures have been adopted: For patients on daily dosing, the GLP-1 agonist will be held on the day of the procedure/surgery. For patients on weekly dosing, the GLP-1 agonist will be held a minimum of 3 days prior to the procedure/surgery. INCREASE YOUR FLUID INTAKE A FEW DAYS PRIOR TO TEST 4. DIET: Three days prior: avoid corn, beans, seeds, peas, and foods high in fiber. 5. TWO DAYS PRIOR TO PROCEDURE: take 2 DULCOLAX LAXATIVE tablet (bisacodyl) at 8 am. Please eat lightly this day. 6. DAY PRIOR TO PROCEDURE: A. Start a clear liquid diet, description below: Any liquids that you can see through such as bouillon, broth, coffee, Gatorade, ice popsicles (no red), Divehi ice, Jell-O (no red), juice (no red), seltzer drinks, soft drinks (no red), or tea. If you prefer more filling drinks, Ensure or Vivonex may be substituted. DO NOT CONSUME ANY RED DRINKS OR MILK/MILK PRODUCTS. B. Take the 4 Dulcolax LAXATIVE tablets (bisacodyl) at approx 3:00 pm C. Mix the entire bottle of MiraLAX with 64 oz of Gatorade (any flavor except red) Diabetic patients mix MiraLAX with 64 oz of Crystal Lite (any flavor except red). Shake mixture till dissolved. Begin at 5:00 pm and drink an 8-ounce glass every 15 minutes until mixture is gone. If you feel nauseated or are vomiting, stop drinking the solution for 1 hour, then restart slowly. D. You may continue with a clear liquid diet until 12 midnight. Do not eat or drink after midnight.THIS INCLUDES HARD CANDY, CHEWING GUM, COUGH DROPS, SMOKING CIGARETTES, CHEWING TOBACCO OR VAPING E. Take your normal PRESCRIPTION MEDICATIONS as directed by the physician's office with a small amount of WATER ONLY 2 hours before your scheduled arrival time. NO Vitamins/Supplements. Other than these medications, nothing by mouth after midnight! Your procedure may be canceled or delayed if you eat or drink prior to the procedure! 7. DIRECTIONS FOR PROCEDURE DAY: NOTHING BY MOUTH (no eating or drinking) Dress comfortably. Leave all valuables including jewelry at home. CELL PHONES ARE permitted in the procedure area. Bring your glasses to sign consent forms. Wear hearing aids if you normally do. Bring your insurance cards with a form of photo ID/identification as well as phone number for your wagon driver salesperson and/or emergency contact. If you have any questions, please feel free to call Endoscopy at [phone] Report to: [facility] [address] [address] Date: 06/01/2024 Arrival time: 1200 documented in this encounter Plan of Treatment Upcoming Encounters Date Type Department Care Team (Late st Contact Info) Description 06/01/2024 12:00 PM EST Procedure Only [facility], [address] [phone] Olman Stroud Jr., MD [address] [place] [address] 07/12/2024 11:20 AM EST Office Visit [facility] [address] [place] [phone] Jovon Artis PA-C [address] [place] [phone] Scheduled Procedures Name Priority Associated Diagnoses Date/Ti [...] Vaccine (FLU shot) (#1) 2024 01/28/2020, 03/03/2019 Colonoscopy 07/16/2024 07/16/2019, 06/27, 09/15/2014, Additional history exists Colorectal Cancer Screening 07/16/2024 Diabetes Screening 02/15/2027 02/16/2024, 0 02/16/2024, 01/14/2024, Additional history exists Lipid Panel 01/13/2029 01/14/2024, 09/23, 02/01/2020, Additional history exists RETIRED - COLONOSCOPY-EVERY 5 YRS AGES 18-100 Discontinued 07/16/2019, 07/16/2019, 09/15/2014, Additional history exists HPV (Gardasil) Vaccine Aged [...] filedocumented as of this encounter Care Teams Transformer Stock Clerk Relationship Specialty Start Date End Date Nixon Llamas MD [employer] [facility] [place] [id number] PCP - General 07/23/04 documented as of this encounter
--- OUTSIDE RECORDS SUMMARY | 2024-07-30 16:17 | External Medical Summary | Summary of Care ---
Author Name Unknown Organization [facility] Address [address] [place] [address] Phone [phone] Care Team Providers Care Fundraising Director Name Role Phone Nixon Llamas MD Primary Care Provider Reason for Visit * Reason Onset Date Comments Pre Cert/Prior Auth 07/12/2024 Dupixent Encounter Details Date Type Department Care Team ([facility] Contact Info) Description 07/12/2024 Telephone [facility] [address] [place] [address] Jovon Artis PA-C [address] [place] [address] Pre Cert/Prior Auth (Dupixent) Allergies Active Allergy [...] 08/21/2015 Penicillins Anaphylaxis High 07/25/2004 Pollen 09/22/2015 [place], insects, - eyes itch Shrimp Extract Unknown 08/21/2015 Skin Soft Fragrance Unknown 10/02/2022 documented as of this encounter (statuses as of 07/12/2024) Medications Omeprazole 40 MG Oral Capsule Delayed Release (PriLOSEC) One tab 1/2 hr prior to breakfast and one tab 1/2 prior to messi meal 60 Capsule 5 4 Active Fluticasone Propionate 50 MCG/ACT Nasal Suspension (Flonase) Administer 1 [place] into nostril as needed. Active Acetaminophen 325 [...] Industry Job Start Date Job End Date [employer] at [employer] Not on file No t on file Not on file documented as of this encounter Miscellaneous Notes * Telephone Encounter - Laura Moe RPh - 07/12/2024 12:53 PM EST [facility] Dermatology Pre-cert Request Please see Dermatology pre-cert request - route referral message with approval, denial or questionsback to "Dermatology Pharmacist Pool [[id number]]". - Per provider: Light therapy contraindicated due [...] of Care: specialty medication - route to [id number]. Referral to pharmacist for: Pharmacist Co-management See corresponding visit note(s) for additional supporting clinical information. Administration Location if Injection: Patient Administered at Home Is the patient in a facility?: No Office Information: Prescriber: Mirza Artis PA-C documented in this encounter Plan of Treatment Upcoming Encounters Date Type Department Care Team ([facility] Contact Info) Description 01/17/2025 11:20 AM EDT Office Visit Dermatology [address] [phone] Jovon Artis PA-C [address] [place] [address] Scheduled Procedures Name Priority Associated Diagnoses Date/Ti [...] filedocumented as of this encounter Care Teams Fundraising Director Relationship Specialty Start Date End Date Nixon Llamas MD [employer] [place] [phone] [place] [id number] PCP - General 07/23/04 documented as of this encounter
--- OUTSIDE RECORDS SUMMARY | 2024-07-30 16:17 | External Medical Summary ---
Author Name Unknown Address Unknown Organization [id number] [place] [address] [place] [address] Laboratory Report Ordering Provider Test Date Status SHAR AGUILAR 06/23/2024 12:38:13 Final Observation Date Value Abnormality Reference (Units ) Status WBC, Total 06/23/2024 12:38:13 8.26 4.00-10.80 (K/uL) Final RBC 06/23/2024 12:38:13 5.10 4.50-5.25 (M/uL) Final Hemoglobin 06/23/2024 12:38:13 15.7 14.0-16.8 (g/dL) Final HCT 06/23/2024 12:38:13 46.3 40.0-48.4 (%) Final MCV 06/23/2024 12:38:13 90.8 82.0-99.5 (fL) Final MCH 06/23/2024 12:38:13 30.8 27.0-34.0 (pg) Final MCHC 06/23/2024 12:38:13 33.9 32.0-36.0 (g/dL) Final RDW 06/23/2024 12:38:13 12.4 11.5-15.5 (%) Final Platelets 06/23/2024 12:38:13 271 140-400 (K/uL) Final MPV 06/23/2024 12:38:13 10.0 6.6-11.1 (fL) Final Nucleated erythrocytes/100 leukocytes [Ratio] in Blood by Automated count 06/23/2024 12:38:13 0 <=0 (/100 WBCs) Final Performing Location [facility] [place] [address] [place] [address]
--- OUTSIDE RECORDS SUMMARY | 2024-07-30 16:17 | External Medical Summary ---
Author Name Unknown Address Unknown Organization [id number][place] [place] [address] [place] [address] Laboratory Report Ordering Provider Test Date Status SHAR AGUILAR 06/23/2024 12:38:13 Final Observation Date Value Abnormality Reference (Units ) Status BUN 06/23/2024 12:38:13 14 6-20 (mg/dL) Final Creatinine 06/23/2024 12:38:13 1.1 0.6-1.2 (mg/dL) Final Glomerular filtration rate/1.73 sq M.predicted [Volume Rate/Area] in Serum, Plasma or Blood by Creatinine-based formula (CKD-EPI) 06/23/2024 12:38:13 72 >=60 (mL/min) Final eGFR is calculated based on the CKD-EPI 2020 equation. Sodium 06/23/2024 12:38:13 140 135-146 (m mol/L) Final Potassium 06/23/2024 12:38:13 4.1 3.5-5.1 (m mol/L) Final Cl 06/23/2024 12:38:13 103 98-107 (mm ol/L) Final CO2 06/23/2024 12:38:13 27 22-32 (mmo l/L) Final Anion gap 06/23/2024 12:38:13 10 7-15 (mmol /L) Final Glucose 06/23/2024 12:38:13 133 Above high normal 70 -120 (mg/dL) Final Calcium 06/23/2024 12:38:13 9.9 8.4-10.2 ( mg/dL) Final Performing Location [facility] [place] [address] [place] [address]
--- OUTSIDE RECORDS SUMMARY | 2024-07-30 16:17 | External Medical Summary ---
Author Name Unknown Address Unknown Organization [id number]:[facility] [place] [address] [place] [address] Laboratory Report Ordering Provider Test Date Status SHAR AGUILAR 06/23/2024 12:38:13 Final Cardiovascular Disease Risk Assessment
(Relative Risk)
<1.0 mg/L Low
1.0-3.0 mg/L Average
>3.0 mg/L High

*This table may not apply in certain inflammatory conditions. Observation Date Value Abnormality Reference (Units ) Status CRP, High-sensitivity 06/23/2024 12:38:13 3.07 Above high normal <=3.00 (mg/L) Final Performing Location [facility] - [address] [place] [address]
--- OUTSIDE RECORDS SUMMARY | 2024-07-30 16:17 | External Medical Summary ---
Author Name Unknown Address Unknown Organization [id number]:[facility] [place] [address] [place] [address] Laboratory Report Ordering Provider Test Date Status SHAR AGUILAR 06/23/2024 12:38:13 Final Observation Date Value Abnormality Reference (Units ) Status Vitamin B12 06/23/2024 12:38:13 [phone] (pg/mL) Final Performing Location [facility] - [address] [place] [address]
--- OUTSIDE RECORDS SUMMARY | 2024-07-30 16:17 | External Medical Summary ---
Author Name Unknown Address Unknown Organization K01:[facility] [place] [address] [place] [address] Laboratory Report Ordering Provider Test Date Status JEFFLAM SCHULZEL 06/23/2024 12:38:13 Final Observation Date Value Abnormality Reference (Units ) Status Borrelia burgdorferi IgG and IgM [Interpretation] in Serum by Immunoassay 06/23/2024 12:38:13 Negative Negative Final Performing Location [facility] [place] [address] [place] [address]
--- OUTSIDE RECORDS SUMMARY | 2024-07-30 16:17 | External Medical Summary | Summary of Care ---
Author Name Unknown Organization [facility] Address [address] [place] [address] Phone [phone] Care Team Providers Care Repairer Art Objects Name Role Phone Nixon Llamas MD Primary Care Provider Reason for Visit * Precert (Within 30 days (routine)) - Authorized Specialty Diagnoses / Procedures Referred By Contac t Referred To Contact Gastroenterology Diagnoses Irritable bowel syndrome, unspecified Procedures TX COLONOSCOPY FLX DX W/COLLJ SPEC WHEN PFRMD TX COLONOSCOPY W/BIOPSY SINGLE/MULTIPLE Nixon Llamas MD [employer] [facility] [address] [address] Phone: tel: fax: Olman Stroud Jr., MD [address] [place] [address] Phone: tel: fax: Referral ID Status Reason Start Date Expiration Date V isits Requested Visits Authorized [id number] Authorized Precert 05/25/2024 07/24/[id number] Encounter Details Date Type Department Care Team (Latest Contact Info) Description 06/01/2024 12:00 PM EST Procedure Only [facility] [place] [address] [place] [id number] Olman Stroud Jr., MD [address] [place], [place] [id number] Encounter for screening for malignant neoplasm of colon*; Hx of colonic polyp; Polyp of colon; Personal history of adenomatous and serrated colon polyps; Diverticulosis of large intestine without perforation or abscess without bleeding Allergies Active Allergy Reactions Criticality Noted Date [...] 08/21/2015 Penicillins Anaphylaxis High 07/25/2004 Pollen 09/22/2015 [place], insects, - eyes itch Shrimp Extract Unknown 08/21/2015 Skin Soft Fragrance Unknown 10/02/2022 documented as of this encounter (statuses as of 06/04/2024) Medications Omeprazole 40 MG Oral Capsule Delayed Release (PriLOSEC) One tab 1/2 hr prior to breakfast and one tab 1/2 prior to messi meal 60 Capsule 5 01/27/20 24 Active Fluticasone Propionate 50 MCG/ACT Nasal Suspension (Flonase) Administer 1 [place] into nostril as needed. Active Acetaminophen 325 MG Oral Tablet (Tylenol) Take 1 Tablet by mouth every 6 hours as needed. Active Betamethasone Dipropionate 0.05 % External Cream (Diprosone) Apply to the arms/legs/malou k/abdomen twice daily for 1-2 weeks as needed 135 g 2 11/08/19 23 024 Discontinued Cyclobenzaprine HCl 10 MG Oral Tablet (Flexeril) Take 1 Tablet by mouth 3 times a day as needed for Muscle spasms. 30 Tablet 09/25/19 24 024 Discontinued Azithromycin 250 MG Oral Tablet (Zithromax Z-Phillip)Indication s:Non-recurrent acute suppurative otitis media of left ear without spontaneous rupture of tympanic membrane Take two tablets by mouth on first day, then 1 tablet daily until gone 6 Tablet 02/25/20 24 024 Discontinued Benzonatate 100 MG Oral CapsuleIndicatio ns:Viral URI with cough,Acute bronchitis, antibiotics not indicated Take 2 Capsules by mouth 3 times a day as needed for Cough. 30 Capsule 02/25/20 24 024 Discontinued documented as of this encounter (statuses as of 06/04/2024) Active Problems Problem Noted Date Diagnosed Date [...] as of this encounter (statuses as of 06/04/2024) Resolved Problems Problem Noted Date Diagnosed Date Resolved Date ADVANCE DIRECTIVE INFORMATION 04/26/2010 03/29/2024 Overview (04/26/2010): Yes, Patient instructed to provide copy of advance directive for provider to review and to be scanned into Electronic Medical Record documented as of this encounter (statuses as of 06/04/2024) Immunizations Name Administration Dates Next Due Seasonal [...] Industry Job Start Date Job End Date [employer] Not on file No t on file Not on file documented as of this encounter Last Filed Vital Signs Vital Sign Reading Time Taken Comments Blood Pressure 113/70 06/01/2024 12:37 PM EST Pulse 83 06/01/2024 12:37 PM EST Temperature 36.9 C (98.4 F) 06/01/2024 1 2:22 PM EST Respiratory Rate 12 06/01/2024 12:3 7 PM EST Oxygen Saturation 97% 06/01/2024 12: 37 PM EST Inhaled Oxygen Concentration - - Weight 106.7 kg (235 lb 3.2 oz) 025 11:41 AM EST Height 175.3 cm (5' 9") 06/01/2024 11:4 1 AM EST Body Mass Index 34.73 06/01/2024 11:41 AM EST documented in this encounter H&P Notes * Olman Stroud Jr., MD - 05/28/2024 3:12 PM EST Endoscopy Pre-Procedure Assessment Name: Jamie Webb Date: 05/28/2024 Time: 3:12 PM Procedure(s): Colonoscopy; with Indication(s) of colon polyp surveillance, last 06/2019 Endoscopy Pre-Procedure Assessment: Prior to the procedure, the patient is identified. The patient's history, medications and allergieshave been reviewed. The patient is competent. The risks and benefits of the proposed procedure and the planned sedation have been discussed with the patient. All questions have been answered and informed consent for the procedure has been obtained. @EDS@ Review of patient's allergies indicates: Allergen Reactions Augmentin [Amoxicillin-Pot Clavulanate] Edema airway Ciprofloxacin Edema face/lips/tongue Itching Clavulanic Acid Other reaction(s): swelling Pcn [Penicillins] Anaphylaxis Asa [Salicylates] Nausea/vomiting Avelox [Moxifloxacin Hcl In Nacl] Rash Bacitracin Unknown Bactrim [Sulfamethoxazole-Trimethoprim] Hives Birds Unknown Iodine Itching Hives, pt has had iodine several times since cat scan and had no issues Moxifloxacin Rash replaced free text allergy. replaced free text allergy. Mushroom Extract Complex (Do Not Select) Unknown [place] Bark [Quercus Robur] Unknown Other Allergy (See Comments) Other reaction(s): Rash Oyster Shell Unknown Pollen [place], insects, - eyes itch Shrimp Extract Unknown Skin Soft Fragrance Unknown Ht 1.753 m (5' 9") | Wt 110.7 kg (244 lb) | BMI 36.03 kg/m | BSA 2.32 m Physical Exam: Mental Status Examination: alert and oriented. Airway Examination: normal oropharyngeal airway and neck mobility. Respiratory Examination: clear to auscultation. CV Examination: normal. ASA Grade: II - A patient with mild systemic disease. Abdomen: soft This patient has undergone a preprocedural evaluation. A determination has been made to proceed with the planned procedure under [facility] procedural guidelines and the [facility] Non-Emergent, Elective Medical Services and Treatment Recommendations (published on 08-31-19). The community and hospital prevalence of COVID-19 has been discussed as well as this patient's specific risks associated with SARS-CoV-19 infection. Based upon the clinical acuity and patient-specific care considerations, this procedure is deemed a Tier II - Intermediate acuity treatment or service with either progression or the threat of progressive disease related to the delay in treatment. Not providing the service has the potential for increasing morbidity or mortality. After reviewing the risks and benefits, the patient is deemed in satisfactory condition to undergo the procedure. The anesthesia plan is to use monitored anesthesia care (MAC). Olman Stroud Jr, MD 05/28/2024 documented in this encounter Procedure Notes * Nixon Llamas MD - 06/01/2024 11:45 AM ESTAssociated Order(s): COLONOSCOPY [facility] [place] Patient Name: Jamie Webb Procedure Date: 06/01/2024 11:45 AM Date of : 1960 Admit Type: Outpatient Note Status: Finalized Date of : 1960 Admit Type: Outpatient Age: 63 Room: Endo 2 Gender: Male Note Status: Finalized Procedure: Colonoscopy Indications: High risk colon cancer surveillance: Personal history of adenoma (10 mm or greater in size), Personal history of multiple (3 or more) adenomas, Last colonoscopy: June 2019 Providers: Olman Stroud Jr, MD (Doctor), Ana Saeed RN, Zain Leonardo CRNA (Anesthesia Staff) Referring MD: Chris Llamas MD Medicines: See the Anesthesia note for documentation of the administered medications Complications: No immediate complications. Procedure: Pre-Anesthesia Assessment: - [place] Protocol: - Pre-procedure Verification: Prior to the procedure, the patient's identity was verified by full name and date of . The patient's identity was verified on all pertinent medical records, including History and Physical and nursing assessment. Also prior to the procedure, a History and Physical was performed, and patient medications, allergies and sensitivities were reviewed. The patient's tolerance of previous anesthesia was reviewed. The patient is competent. The risks and benefits of the procedure and the sedation options and risks were discussed with the patient. All questions were answered and informed consent was obtained. - Time-Out: Prior to the start of the procedure, the patient's identification, proposed procedure, accurate signed consent, correctly labeled images and records, and need for prophylactic antibiotics were verified by the physician, the nurse and the hardwood finisher in the procedure room. After I obtained informed consent, the scope was passed under direct vision. All instruments were visually inspected immediately before and after removal from the patient to ensure they are fully intact. Throughout the procedure, the patient's blood pressure, pulse, and oxygen saturations were monitored continuously. The CF-H180AL Colonoscope ([id number]) was introduced through the anus and advanced to the terminal ileum, with identification of the appendiceal orifice and IC valve. The colonoscopy was performed without difficulty. The patient tolerated the procedure well. The quality of the bowel preparation was good. Findings & Specimens: Retroflexion in the right colon was performed, along with multiple passes up and down the ascending. The terminal ileum appeared normal. A 5 to 6 mm polyp was found in the proximal ascending colon. The polyp was removed with a cold snare. Resection and retrieval were complete. The pathology specimen was placed into Bottle Number 1. Estimated blood loss was minimal. Multiple diverticula were found in the ascending colon and left colon. Impression: - The examined portion of the ileum was normal. - One 5 to 6 mm polyp in the proximal ascending colon, removed with a cold snare. Resected and retrieved. - Moderate diverticulosis in the ascending colon and in the left colon. Recommendation: - Repeat colonoscopy in 5 years for surveillance. Olman Stroud Jr, MD 06/01/2024 12:28:22 PM This report has been signed electronically. documented in this encounter Nursing Notes * Alyx Parham RN - 06/01/2024 12:45 PM EST Patient is discharged under the care of : delicia Report called to N/A Means of transportation: ambulatory Discharge instructions reviewed by: Nurse Special discharge instructions given for: Colon Polyps and Diverticulitis/Diverticulosis and high fiber diet Bronchoscopy: N/A Patient verbalized understanding of discharge instructions: YES Per verbal order, the physician and /or designant examined the patient, prescribed and verified thecharted medications and certify that he/she is recovered for safe discharge from endoscopy. Post procedure area cleaned per requirements with appropriate dwell time pre and post patient care . * Alyx Parham RN - 06/01/2024 12:37 PM EST Patient sitting up in liter. Patient offered drink and is tolerating PO fluids well. * Ana Saeed RN - 06/01/2024 12:06 PM EST Colonoscopy to terminal ileum completed. Pt tolerated procedure well. Deep sedation given by AGRICULTURE INSPECTOR. Refer to anesthesia record. Abdomen soft and non-tender. Transferred to recovery via litter. Bedside Scope and Room Cleaning with dwell time post procedure completed. Procedure area cleaned per requirements with appropriate dwell time pre and post patient care. Specimen location(s) verified with physician for proper labeling. * Corie Burton RN - 06/01/2024 11:34 AM EST Procedure and sedation plan reviewed. The following pt discharge instructions reviewed with pt prior to prodedure: No driving today. No alcohol today. No signing of legal documents. Rest as much as possible today and can return to normal activities tomorrow. No operating any heavy equipment today. Diet as tolerated. Pt verbalized understanding. Pre procedure area cleaned per requirements with appropriate dwell time pre and post patient care . documented in this encounter Miscellaneous Notes * Pt Handout (on AVS) - Ana Saeed RN - 06/01/2024 12:17 PM EST Images from the original note were not included. [id number] Understanding Colon and Rectal Polyps The colon (also called the large intestine) is a muscular tube that forms the last part of the digestive tract. It absorbs water and stores food waste. The colon is about 4 to 6 feet long. The rectumis the last 6 inches of the colon. The colon and rectum have a smooth lining composed of millions of cells. Changes in these cells can lead to growths called polyps in the colon. These can become cancerous and should be removed. Many tests are available to screen for colon cancer. But colonoscopy is the only test that looks directly into the entire large intestine and allows for treatment right away. During colonoscopy, these polyps can be removed. How often you need this test depends on many things. These include your condition, your family history, symptoms, and what the findings were at the previous colonoscopy. When the colon lining changes Changes that happen in the cells that line the colon or rectum can lead to growths called polyps. Over a period of years, polyps can turn into cancer. Removing polyps early may prevent cancer from ever forming. Polyps Polyps are fleshy clumps of tissue that form on the lining of the colon or rectum. Small polyps areusually not cancer (benign). But over time, cells in a polyp can change and become precancerous. Certain types of polyps known as adenomatous polyps and serrated polyps are precancerous. The risk forcancer also increases with the size of the polyp and certain cell and gene features. This means that they may become cancerous if they're not removed. Hyperplastic polyps are benign. They can grow quite large and not turn cancerous. Cancer Almost all colorectal cancers start when polyp cells start growing abnormally. As a cancerous tumorgrows, it may affect more and more of the colon or rectum. In time, cancer can also grow beyond thecolon or rectum and spread to nearby organs or to glands called lymph nodes. The cells can also travel to other parts of the body. This is known as metastasis. The earlier a cancerous tumor is removed, the better the chance of preventing its spread. Last Reviewed Date: 2021 00:00:00 [id number] The [employer]. All rights reserved. This information is not intended as a substitute for professional medical care. Always follow your healthcare professional's instructions. * Pt Handout (on AVS) - Ana Saeed RN - 06/01/2024 12:05 PM EST Images from the original note were not included. [id number] Understanding Diverticulosis and Diverticulitis The colon (large intestine) is the last part of the digestive tract. It absorbs water from stool and changes it from a liquid to a solid. In some people, small pouches called diverticula can form in the colon wall. This is called diverticulosis. It's very common as people get older. The pouches canbecome inflamed and infected. If this happens, it becomes a more severe problem called diverticulitis. These problems can be painful. But they may be managed with treatment. Pouches or diverticula usually occur in the lower part of the colon called the sigmoid. Diverticulitis occurs when the pouches become infected or inflamed. Managing your condition Your healthcare provider may prescribe diet changes or medicines. You might need surgery if your problem is severe. Certain medicines can help soften and bulk up stool, which makes bowel movements easier. Available in pill, powder, and wafer form, examples of these medicines include: Psyllium Methylcellulose Polycarbophil If you have diverticulosis Follow this treatment advice: Make changes to your diet. This is often all that's needed to control symptoms. The main changesare adding fiber and drinking more water. Fiber absorbs water as it travels through your colon. This helps your stool stay soft and move smoothly. Water helps with this process. If needed, you may be told to take [id number] stool softeners. To help ease pain, take antispasmodic medicines as prescribed. Watch for changes in your bowel movements. Tell your healthcare provider if you notice any changes. Begin an exercise program. Ask your healthcare provider how to get started. Get plenty of rest and sleep. If you have diverticulitis Treatment depends on how bad your symptoms are. They include: For mild symptoms. You may be put on a liquid diet for a short time. Antibiotic medicine may be prescribed. If these two steps ease your symptoms, you may then be prescribed a high-fiber diet. If you still have symptoms, your healthcare provider will discuss more treatment options with you. For severe symptoms. You may need to be in the hospital. There, you can be given IV (intravenous) antibiotics and fluids. You'll be put on a low-fiber or liquid diet. You may need surgery if severe symptoms aren't eased by medical treatment, or if the diverticula have burst (ruptured). Gardi to colon health Help keep your colon healthy with these lifestyle tips: Eat a healthy diet. Include plenty of high-fiber fruits, vegetables, and whole grains. Drink plenty of liquids such as water and juice. Keep a healthy lifestyle. Do regular exercise, manage your stress, and get enough rest and sleep. Last Reviewed Date: 2023 00:00:00 [id number] The [employer]. All rights reserved. This information is not intended as a substitute for professional medical care. Always follow your healthcare professional's instructions. * Pt Handout (on AVS) - Ana Saeed RN - 06/01/2024 12:04 PM EST [id number] Eating a High-Fiber Diet Fiber is what gives strength and form to plants. Most grains, beans, vegetables, and fruits containfiber. Foods rich in fiber are often low in calories and fat. Because they are starchy, they will fill you up more quickly than foods with low fiber and empty calories. Eating enough fiber daily is apowerful way to cut your risks for some health problems. To find out how much fiber in a serving of canned, packaged, or frozen foods, read the Nutrition Facts label. And aim for a steady supply of fiber each day. Types of fiber and their benefits Insoluble and soluble are 2 types of fiber. They both aid digestion and help maintain a healthy weight. Insoluble fiber. This is found in whole grains, cereals, certain fruits and vegetables, such as apple skin, corn, and carrots. Insoluble fiber helps prevent constipation. It also reduces the risk for some cancers. It's called insoluble because it doesn't dissolve in water. Soluble fiber. This type of fiber is in oats, beans, and certain fruits and vegetables, such as strawberries and peas. Soluble fiber supports healthy cholesterol levels. This helps lower the risk for heart disease. Eating enough soluble fiber is also a good way to control blood sugar levels. Look for high-fiber foods Try these foods to add fiber to your diet: Whole-grain breads and cereals. Aim for 6 to 8 ounces a day. Include whole grains, such as whole-wheat and oat bran cereals, oatmeal, whole-wheat muffins or toast, and corn tortillas in your meals. Fruits. Aim for 2 cups a day. Apples, oranges, strawberries, pears, and bananas are good sources. (Note: Fruit juice is low in fiber.) Vegetables. Aim for at least 2.5 cups a day. This might include asparagus, carrots, broccoli, peas, cabbage, beets, cucumbers, radishes, onions, squash, leafy greens (cooked and raw), [place] sprouts, and cauliflower to your meals on a regular basis. Beans. One cup of cooked lentils gives you over 15 grams of fiber. Try navy beans, black beans, lentils, levy beans and chickpeas. Nuts and seeds. A small handful of seeds gives you about 3 grams of fiber. Try flax seeds, sunflower, sesame, pumpkin or mandi seeds. Nuts are also a great source of fiber. These include almonds, walnuts, pistachios, macadamia, and [place] nuts. Keep track of your fiber Keep track of how much fiber you eat. Read food labels. Then aim to eat a large variety of foods high in fiber every day. Start with breakfast. Ask your healthcare provider how much water you should drink as you start to eat more fiber. Water will keep your digestive system working smoothly. The daily recommended value for fiber intake is 25 grams a day. Some experts advise that women under 50 eat 25 to 28 grams per day. Men under 50 eat 30 to 38 grams per day. Your daily fiber needs drop to 22 grams for women and 28 grams for men after age 50. Before you reach for the fiber supplements, think about this. Fiber is found naturally in healthy whole foods. It gives you that feeling of fullness after you eat. Taking fiber supplements or eating fiber-enriched foods will not give you this full feeling. Nor will it give you all the nutrients youneed. Or vitamins and minerals that come from eating a whole food diet high in fiber. Your fiber intake is a good measure of the quality of your overall diet. You may be lacking other important nutrients as well if you are missing out on your daily amount of fiber. Last Reviewed Date: 2022 00:00:00 [id number] The [employer]. All rights reserved. This information is not intended as a substitute for professional medical care. Always follow your healthcare professional's instructions. documented in this encounter Plan of Treatment Upcoming Encounters Date Type Department Care Team (Late st Contact Info) Description 07/12/2024 11:20 AM EST Office Visit Dermatology [facility] [address] [phone] Jovon Artis PA-C [address] [place], [place] [address]DENYS [email or web address] [phone] Scheduled Procedures Name Priority Associated Diagnoses Date/Ti [...] shot) (#1) 2024 01/28/2020, 03/03/2019 Diabetes Screening 02/15/2027 02/16/2024, 0 02/16/2024, 01/14/2024, Additional history exists Lipid Panel 01/13/2029 01/14/2024, 05, 02/01/2020, Additional history exists Colonoscopy 06/01/2029 06/01/2024, 06/27, 07/16/2019, Additional history exists Colorectal Cancer Screening 06/01/2029 RETIRED - COLONOSCOPY-EVERY 5 YRS AGES 18-100 [...] Procedure Name Priority Date/Time Associated Diagnosis Comments SURGICAL PATHOLOGY Routine 06/01/2024 12 :15 PM EST Hx of colonic polyp COLONOSCOPY 06/01/2024 11:45 AM EST documented in this encounter Results * SURGICAL PATHOLOGY (06/01/2024 12:15 PM EST) Final Diagnosis A. Colon, proximal ascending colon, polyp, polypectomy: - Tubular adenoma, negative for high-grade dysplasia. 06/02/2024 4:[address] [facility] Gross Description A. Colon, Ascending. Received in formalin with a container labeled with "Jamie Webb", "[id number]", "1960" and " proximal ascending polyp". Received is one fragment of malik tissue measuring 0.9 cm in greatest dimension. The specimen is placed in a biopsy bag and entirely submitted in cassette A1. Gross By: 06/02/2024 4:[address] [facility] Sign Out Location Pathologist sign out performed at [facility] ([facility])[address] [address]. 06/02/2024 4:[address] [facility] Photographic images and diagrams represent naqvi findings in this case; they are not intended to replace a complete review of the final diagnostic report. The following statement applies to Flow Cytometry, Histology, In situ Hybridization Assays and Molecular Genetics. This test was developed and performed at [facility] and its performance characteristics determined by [facility] [employer]. It has not been cleared or approved by the U.S. Food and Drug Administration. The FDA has determined that such clearance or approval is not necessary. This test is used for clinical purposes. It should not be regarded as investigational or for research. Special stains, including histochemical stains, and studies using immunologic and HILARIA methodology (where applicable) are performed with appropriate positive and negative control reactions. 06/02/2024 4:[address] [facility] Tissue Ascending colon biopsy specimen / Unknown 06/01/2024 12:15 PM EST 06/01/2024 12:20 PM EST Olman Stroud Jr., MD LAB PATHOLOGY [facility] Final Result LABORATORY [facility] [address] [place] [address] * COLONOSCOPY (06/01/2024 11:45 AM EST) 06/01/2024 11:4 5 AM EST Narrative Procedure Note Nixon Llamas MD - 06/01/2024 11:45 AM EST [facility] Patient Name: Jamie Webb Procedure Date: 06/01/2024 11:45 AM Date of : 1960 Admit Type: Outpatient Note Status:Finalized Date of : 1960 Admit Type: Outpatient Age: 63 Room: [facility] 2 Gender: Male Note Status: Finalized Procedure: Colonoscopy Indications: High risk colon cancer surveillance: Personalhistory of adenoma (10 mm or greater in size), Personal history of multiple (3 or more)adenomas, Last colonoscopy: June 2019 Providers: Olman Stroud Jr, MD (Doctor), Ana Saeed RN, Zain Leonardo CRNA (Anesthesia Staff) Referring MD: Chris Llamas MD Medicines: See the Anesthesia note for documentation of theadministered medications Complications: No immediate complications. Procedure: Pre-Anesthesia Assessment: - [place] Protocol: - Pre-procedure Verification: Prior to theprocedure, the patient's identity was verified by full name and date of . Thepatient's identity was verified on all pertinent medical records, including History andPhysical and nursing assessment. Also prior to the procedure, a History and Physicalwas performed, and patient medications, allergies and sensitivities werereviewed. The patient's tolerance of previous anesthesia was reviewed. The patient iscompetent. The risks and benefits of the procedure and the sedation options and riskswere discussed with the patient. All questions were answered and informed consent wasobtained. - Time-Out: Prior to the start of the procedure,the patient's identification, proposed procedure, accurate signed consent,correctly labeled images and records, and need for prophylactic antibiotics were verifiedby the physician, the nurse and the hardwood finisher in the procedure room. After I obtained informed consent, the scope waspassed under direct vision. All instruments were visually inspected immediatelybefore and after removal from the patient to ensure they are fully intact. Throughout the procedure, the patient's bloodpressure, pulse, and oxygen saturations were monitored continuously. The [id number] ([id number]) was introduced through the anus and advanced to the terminalileum, with identification of the appendiceal orifice and IC valve. The colonoscopywas performed without difficulty. The patient tolerated the procedure well. Thequality of the bowel preparation was good. Findings & Specimens: Retroflexion in the right colon was performed, along with multiplepasses up and down the ascending. The terminal ileum appeared normal. A 5 to 6 mm polyp was found in the proximal ascending colon. Thepolyp was removed with a cold snare. Resection and retrieval were complete. The pathology specimen wasplaced into Bottle Number 1. Estimated blood loss was minimal. Multiple diverticula were found in the ascending colon and leftcolon. Impression: - The examined portion of the ileum was normal. - One 5 to 6 mm polyp in the proximal ascendingcolon, removed with a cold snare. Resected and retrieved. - Moderate diverticulosis in the ascending colonand in the left colon. Recommendation: - Repeat colonoscopy in 5 years for surveillance. Olman Stroud Jr, MD 06/01/2024 12:28:22 PM This report has been signed electronically. Nixon Llamas MD GASTRO [facility] Final Result documented in this encounter Visit Diagnoses Diagnosis Encounter for screening for malignant neoplasm of colon- Primary Special screening for malignant neoplasms, colon Hx of colonic polyp Personal history of colonic polyps Polyp of colon Benign neoplasm of colon Personal history of adenomatous and serrated colon polyps Diverticulosis of large intestine without perforation or abscess without bleeding Diverticulosis of colon (without mention of hemorrhage) documented in this encounter Administered Medications Active Administered Medications - up to 3 most recent administrations Medication Order MAR Action Action Date Dose Rate Site oxygen GAS Inhalation, OXYGEN, First dose on Fri06/01/24 at 1600, Until Discontinued, Device/Managed by: Low Flow Device, Goal SPO2 (%): 91-95, Starting Device: Nasal Cannula, Initial Flow Rate (LPM): 2, Lowest Support: Nasal Cannula: Flow 0-6 LPM. Titrate up/down by 1 LPM., Titration Interval: Q2 minutes and as needed., Notify Provider: For sudden DECREASE in resting SPO2 to less than 85% and when escalating delivery device., Wean patient off Oxygen when the oxygen saturation is greater than or equal to 93% Inactive Administered Medications - up to 3 most recent administrations Medication Order MAR Action Action Date Dose Rate Site Isolyte-S pH 7.4 infusion Intravenous, at 75 mL/hr, Plasma-LYTE 148, isolyte-S, and isolyte-S pH 7.4 are considered equivalent - including for MAR barcode scanning., CONTINUOUS, Starting on Fri06/01/24 at 1200, Until Fri06/01/24 at 1459, Pre-Op Restarted 06/01/2024 12:23 PM EST Continue from Pre-Op 06/01/2024 11:52 AM EST 75 mL/hr New Bag 06/01/2024 11:45 AM EST 75 mL/hr documented in this encounter Care Teams Repairer Art Objects Relationship Specialty Start Date End Date Nixon Llamas MD [facility] [address] [place] [address] [place] [address] PCP - General 07/23/04 documented as of this encounter
--- OUTSIDE RECORDS SUMMARY | 2024-07-30 16:17 | External Medical Summary ---
Author Name Unknown Address Unknown Organization K01:LABORATORY [facility] - [facility] [address] [facility] [address] Laboratory Report Ordering Provider Test Date Status SHAR AGUILAR 06/23/2024 12:38:13 Final Observation Date Value Abnormality Reference (Units ) Status Nuclear IgG Ab [Ratio] in Serum by Immunoassay 06/23/2024 12:38:13 Negative Negative Final DNA double strand Ab [Presence] in Serum 06/23/2024 12:38:13 Negative Negative Final DOUBLE STRANDED DNA VALUE - [facility] 06/23/2024 12:38:13 17.0 <20 (IU/mL) Final Extractable nuclear Ab [Presence] in Serum 06/23/2024 12:38:13 Negative Negative Final Nuclear IgG Ab [Ratio] in Serum by Immunoassay 06/23/2024 12:38:13 0.3 <0.7 (Ratio) Final Screening is based on detect ion of the following antibodies: dsDNA, U1-AUTOMATIC GLOVE TURNER [employer] FORMER (RNP70, A, C), SS-A/Ro, SS-B / La, Denisha-1, Scl-70, Centromere B proteins and Sm proteins. In conjunction with clinical findings, this can aid in the diagnosis of systemic lupus erythematosous (SLE), mixed connective tissue disease (MCTD), Sjogren's syndrome, scleroderma and polymyositis/dermatomyositis.
However, a negative result does not rule out systemic rheumatic or other autoimmune disease. If clinically suspected, further evaluation and testing may be necessary. Please consult with Rheumatology Department.
Methodology: Fluorescent Enzyme Immunoassay. Performing Location LABORATORY [place] [address] [facility] [address]
--- OUTSIDE RECORDS SUMMARY | 2024-07-30 16:17 | External Medical Summary ---
Author Name Unknown Address Unknown Organization K01:LABORATORY [facility] - [address] [place] [address] Laboratory Report Ordering Provider Test Date Status LAM AGUILAREL 06/23/2024 12:38:13 Final Observation Date Value Abnormality Reference (Units ) Status PSA 06/23/2024 12:38:13 1.37 <4.10 (ng/ mL) Final Total PSA is within referenc e interval. Free PSA testing is not indicated. Performing Location LABORATORY [facility] - [address] [place] [address]
--- OUTSIDE RECORDS SUMMARY | 2024-07-30 16:17 | External Medical Summary | Summary of Care ---
Author Name Unknown Organization [facility] Address [address] [place] [address] Phone [phone] Care Team Providers Care Dial Painter Name Role Phone Nixon Llamas MD Primary Care Provider Reason for Visit * Precert (Within 30 days (routine)) - Authorized Specialty Diagnoses / Procedures Referred By Contac t Referred To Contact Gastroenterology Diagnoses Irritable bowel syndrome, unspecified Procedures [facility] COLONOSCOPY FLX DX W/COLLJ SPEC WHEN PFRMD [facility] COLONOSCOPY W/BIOPSY SINGLE/MULTIPLE Nixon Llamas MD [facility] [place] [address] [address] Phone: tel: fax: Olman Stroud Jr., MD [address] [place] [address] Phone: tel: fax: Referral ID Status Reason Start Date Expiration Date V isits Requested Visits Authorized [id number] Authorized Precert 05/25/2024 07/24/2024 [id number] Encounter Details Date Type Department Care Team (Latest Contact Info) Description 06/01/2024 12:00 PM EST Procedure Only [facility] [place] [address] [place] [id number] Olman Stroud Jr., MD [address] [place], [place] [id number] Encounter for screening for malignant neoplasm of [...] 08/21/2015 Penicillins Anaphylaxis High 07/25/2004 Pollen 09/22/2015 [place], insects, - eyes itch Shrimp Extract Unknown 08/21/2015 Skin Soft Fragrance Unknown 10/02/2022 documented as of this encounter (statuses as of 06/09/2024) Medications Omeprazole 40 MG Oral Capsule Delayed Release (PriLOSEC) One tab 1/2 hr prior to breakfast and one tab 1/2 prior to messi meal 60 Capsule 5 01/27/20 24 Active Fluticasone Propionate 50 MCG/ACT Nasal Suspension (Flonase) Administer 1 [place] into nostril as needed. Active Acetaminophen 325 [...] as of this encounter (statuses as of 06/09/2024) Active Problems Problem Noted Date Diagnosed Date [...] as of this encounter (statuses as of 06/09/2024) Resolved Problems Problem Noted Date Diagnosed Date Resolved Date ADVANCE DIRECTIVE INFORMATION 04/26/2010 03/29/2024 Overview (04/26/2010): Yes, Patient instructed to provide copy of advance directive for provider to review and to be scanned into Electronic Medical Record documented as of this encounter (statuses as of 06/09/2024) Immunizations Name Administration Dates Next Due Seasonal [...] Industry Job Start Date Job End Date [employer] Not on file No t on [...] Mushroom Extract Complex (Do Not Select) Unknown [place] Bark [Quercus Robur] Unknown Other Allergy (See Comments) Other reaction(s): Rash Oyster Shell Unknown Pollen [place], insects, - eyes itch Shrimp Extract Unknown [...] to proceed with the planned procedure under [facility] procedural guidelines and the [facility] Non-Emergent, Elective Medical Services and Treatment [...] - 06/01/2024 11:45 AM ESTAssociated Order(s): COLONOSCOPY [facility] [place] Patient Name: Jamie Webb Procedure Date: 06/01/2024 [...] No immediate complications. Procedure: Pre-Anesthesia Assessment: - [place] Protocol: - Pre-procedure Verification: Prior to the [...] by the physician, the nurse and the plug paster in the procedure room. After I obtained informed consent, the scope was passed under direct vision. All instruments were visually inspected immediately before and after removal from the patient to ensure they are fully intact. Throughout the procedure, the patient's blood pressure, pulse, and oxygen saturations were monitored continuously. The CF-[id number] Colonoscope ([id number]) was introduced through the anus and advanced [...] tolerated procedure well. Deep sedation given by RACK ROOM WORKER. Refer to anesthesia record. Abdomen soft and [...] from the original note were not included. [id number] Understanding Colon and Rectal Polyps The colon [...] its spread. Last Reviewed Date: 2021 00:00:00 [id number] [employer]. All rights reserved. This information is not intended as a substitute for professional medical care. Always follow your healthcare professional's instructions. * Pt Handout (on AVS) - Ana Saeed RN - 06/01/2024 12:05 PM EST Images from the original note were not included. [address] Understanding Diverticulosis and Diverticulitis The colon (large [...] needed, you may be told to take rxcr-[id number] stool softeners. To help ease pain, take [...] or if the diverticula have burst (ruptured). [place] to colon health Help keep your colon healthy with these lifestyle tips: Eat a healthy diet. Include plenty of high-fiber fruits, vegetables, and whole grains. Drink plenty of liquids such as water and juice. Keep a healthy lifestyle. Do regular exercise, manage your stress, and get enough rest and sleep. Last Reviewed Date: 2023 00:00:00 [id number] [employer]. All rights reserved. This information is not intended as a substitute for professional medical care. Always follow your healthcare professional's instructions. * Pt Handout (on AVS) - Ana Saeed RN - 06/01/2024 12:04 PM EST 18597 Eating a High-Fiber Diet Fiber is what [...] onions, squash, leafy greens (cooked and raw), [place] sprouts, and cauliflower to your meals on [...] These include almonds, walnuts, pistachios, macadamia, and [place] nuts. Keep track of your fiber Keep [...] of fiber. Last Reviewed Date: 2022 00:00:00 [id number] [employer]. All rights reserved. This information is not intended as a substitute for professional medical care. Always follow your healthcare professional's instructions. documented in this encounter Plan of Treatment Upcoming Encounters Date Type Department Care Team (Late st Contact Info) Description 07/12/2024 11:20 AM EST Office Visit Dermatology [facility] [address] [phone] Jovon Artis PA-C [address] [place], [place] [address] [phone] Scheduled Procedures Name Priority Associated Diagnoses Date/Ti [...] high-grade dysplasia. 06/02/2024 4:01 PM EST LABORATORY [facility] Gross Description A. Colon, Ascending. Received in formalin with a container labeled with "Jamie Webb", "[id number]", "1960" and " proximal ascending polyp". Received is one fragment of malik tissue measuring 0.9 cm in greatest dimension. The specimen is placed in a biopsy bag and entirely submitted in cassette A1. Gross By: 06/02/2024 4:01 PM EST LABORATORY [facility] Sign Out Location Pathologist sign out performed at [facility] ([facility])[address] [address]. 06/02/2024 4:01 PM EST LABORATORY [facility] Photographic images and diagrams represent naqvi findings in this case; they are not intended to replace a complete review of the final diagnostic report. The following statement applies to Flow Cytometry, Histology, In situ Hybridization Assays and Molecular Genetics. This test was developed and performed at [facility] and its performance characteristics determined by [facility] [employer]. It has not been cleared or approved [...] control reactions. 06/02/2024 4:01 PM EST LABORATORY [facility] Tissue Ascending colon biopsy specimen / Unknown 06/01/2024 12:15 PM EST 06/01/2024 12:20 PM EST Olman Stroud Jr., MD LAB PATHOLOGY [facility] Final Result LABORATORY [facility] [address] [place] [address] * COLONOSCOPY (06/01/2024 11:45 AM EST) 06/01/2024 11:4 5 AM EST Narrative Procedure Note Nixon Llamas MD - 06/01/2024 11:45 AM EST [facility] [place] Patient Name: Jamie Webb Procedure Date: 06/01/2024 11:45 AM Date of : 1960 Admit Type: Outpatient Note Status:Finalized Date of : 1960 Admit Type: Outpatient Age: 63 Room: [facility] 2 Gender: Male Note Status: Finalized [...] No immediate complications. Procedure: Pre-Anesthesia Assessment: - [place] Protocol: - Pre-procedure Verification: Prior to theprocedure, [...] verifiedby the physician, the nurse and the plug paster in the procedure room. After I obtained informed consent, the scope waspassed under direct vision. All instruments were visually inspected immediatelybefore and after removal from the patient to ensure they are fully intact. Throughout the procedure, the patient's bloodpressure, pulse, and oxygen saturations were monitored continuously. The [id number] ([id number]) was introduced through the anus and advanced [...] hemorrhage) documented in this encounter Administered Medications Inactive Administered Medications - up to 3 [...] mL/hr documented in this encounter Care Teams Dial Painter Relationship Specialty Start Date End Date Nixon Llamas MD [facility] [address] [place] [facility] [place] [address] PCP - General 07/23/04 documented as of this encounter
--- OUTSIDE RECORDS SUMMARY | 2024-07-30 16:17 | External Medical Summary ---
Author Name Unknown Address Unknown Organization : Laboratory Report Ordering Provider Test Date Status SHAR AGUILAR 06/23/2024 12:38:13 Final Observation Date Value Abnormality Reference (Units ) Status Lipoprotein A 06/23/2024 12:38:13 <10 <75 (n mol/L) Final Risk Category
Optimal < 75 nmol/L
Moderate 75 - 125 nmol/L
High > 125 nmol/L
Cardiovascular event risk category cut points
(optimal, moderate, high) are based on Barbara Townsend
[facility] 2017;69:692-711.

Test Performed at:
[facility]
[address] [facility]
[place] [address]
Zac Valente M.D., Ph.D.,Director of Laboratories Performing Location
--- OUTSIDE RECORDS SUMMARY | 2024-07-30 16:18 | External Medical Summary | Summary of Care ---
Author Name Unknown Organization [facility] Address [address] [place] [address] Phone [phone] Care Team Providers Care Game Programmer Name Role Phone Nixon Llamas MD Primary Care Provider Reason for Visit * Reason Comments Cough Sore Throat Ear Pain Bilateral ear pain Encounter Details Date Type Department Care Team (Latest Contact Info) Description 02/25/2024 3:00 PM EDT Convenient Care Visit [facility] [address] [place] [phone] Mega Zuleta PA-C [address] [place] [address] Non-recurrent acute suppurative otitis media of left ear without spontaneous rupture of tympanic membrane*; Viral URI with cough; Acute bronchitis, antibiotics not indicated Allergies Active Allergy Reactions Criticality Noted Date Comments Salicylates Nausea/vomiting 07/25/2004 Amoxicillin-Pot Clavulanate Edema airway High 06/14/2019 Moxifloxacin Hcl In Nacl Rash 10/15/2011 Bacitracin 10/02/2022 Sulfamethoxazole-Trimet hoprim Hives 02/25/2024 Birds Unknown 09/22/2015 Ciprofloxacin Edema face/lips/tongue High 06/14/2019 Itching Clavulanic Acid High 05/23/2011 Other reaction(s): swelling Iodine Itching 07/25/2004 hives Moxifloxacin Rash 05/23/2011 replaced free text allergy. replaced free text allergy. Mushroom Extract Complex Unknown 08/21/2015 Quercus Robur Unknown 08/21/2015 Other Allergy (See Comments) 09/25/2022 Other reaction(s): Rash Oyster Shell Unknown 08/21/2015 Penicillins Anaphylaxis High 07/25/2004 Pollen 09/22/2015 Crabtree, insects, - eyes itch Shrimp Extract Unknown 08/21/2015 Skin Soft Fragrance 10/02/2022 documented as of this encounter (statuses as of 02/25/2024) Medications Medication Sig Dispensed Refills Start Date End Date Status Betamethasone Dipropionate 0.05 % External Cream (Diprosone) Apply to the arms/legs/back/ab domen twice daily for 1-2 weeks as needed 135 g 2 11/07/2022 Active Additional Information Patient not taking.Reported on 04/02/2023 Cyclobenzaprine HCl 10 MG Oral Tablet (Flexeril) Take 1 Tablet by mouth 3 times a day as needed for Muscle spasms. 30 Tablet 09/25/2023 Active Additional Information Patient not taking.Reported on 01/27/2024 Omeprazole 40 MG Oral Capsule Delayed Release (PriLOSEC) One tab 1/2 hr prior to breakfast and one tab 1/2 prior to messi meal 60 Capsule 5 01/27/2024 Active predniSONE 20 MG Oral Tablet (Deltasone)Indicati ons:Acute bronchitis, antibiotics not indicated Take 2 Tablets by mouth in the morning for 5 days. 10 Tablet 02/25/2024 03/01/2024 Active Azithromycin 250 MG Oral Tablet (Zithromax Z-Phillip)Indications:N on-recurrent acute suppurative otitis media of left ear without spontaneous rupture of tympanic membrane Take two tablets by mouth on first day, then 1 tablet daily until gone 6 Tablet 02/25/2024 Active Benzonatate 100 MG Oral CapsuleIndications: Viral URI with cough,Acute bronchitis, antibiotics not indicated Take 2 Capsules by mouth 3 times a day as needed for Cough. 30 Capsule 02/25/2024 Active documented as of this encounter (statuses as of 02/25/2024) Active Problems Problem Noted Date Diagnosed Date Cognitive impairment 10/13/2019 Serologic abnormality 10/13/2019 Joint pain 10/13/2019 Chronic generalized pain 10/13/2019 Fatigue 10/13/2019 Bilateral carpal tunnel syndrome 10/13/2019 Rotator cuff disorder, unspecified laterality Osteoarthritis involving mul tiple joints on both sides of body 10/13/2019 Diverticulitis of colon 06/14/2019 Lumbar radiculitis 05/06/2017 Ear problem 05/24/2010 ADVANCE DIRECTIVE INFORMATION 04/26/2010 Overview: Yes, Patient instructed to provide copy of advance directive for provider to review and to be scanned into Electronic Medical Record Abdominal pain, epigastric 04/24/2010 BMI 35-39 ISOLATED (SEE ACTUAL BMI) 11/06/2009 Overview: Per Obesity Protocol, #19 Thoracic spondylosis 05/25/2008 Benign neoplasm of colon 07/31/2007 Overview: adenomatous repeat colonoscopy in 5 yrs Stasis Dermatitis 06/10/2007 Diverticulosis of colon 08/26/2006 Overview: mild BENIGN NEOPLASM ADRENAL 09/30/2005 Gastroparesis 01/15/2005 Diaphragmatic hernia 06/06/2004 Back disorder History of colonic polyps Overview: ICD-10 update of inactive term Acute gastric ulcer without mention of hemorrhage, perforation, or obstruction Other constipation Irritable bowel syndrome documented as of this encounter (statuses as of 02/25/2024) Immunizations Name Administration Dates Next Due Seasonal Influenza, PF, 6 M & above, IM , (FluLaval or Fluzone) 03/03/2019 documented as of this encounter Social History Tobacco Use Types Packs/Day Years Used Date Smoking Tobacco: Never Smokeless Tobacco: Never Alcohol Use Standard Drinks/Week Comments No 0 (1 standard drink = 0.6 oz pur e alcohol) Utilities Answer Date Recorded Do you have trouble paying y our heating, water, or electric bill? (Adult - for ages 18 years and over) Not on file 11/11/2023 Is your family able to pay t he heat, water, or electric bill? (Household - for ages 0-17 years) Not on file 11/11/2023 Does your family have access to good internet? (Household - for ages 0-17 years) Not on file 11/11/2023 Social Connections Answer Date Recorded How often do you feel lonely or isolated from those around you? (Adult - for ages 18 years and over) Not on file 11/11/2023 Sex and Gender Information Value Date Recorded Sex Assigned at Male 01/25/2022 8:02 PM EDT Gender Identity Male 01/25/2022 8:02 PM EDT Sexual Orientation Straight 01/25/2022 8: 02 PM EDT Job Start Date Occupation Industry Not on file Not on file Not on file documented as of this encounter Last Filed Vital Signs Vital Sign Reading Time Taken Comments Blood Pressure 128/90 02/25/2024 3:08 PM EDT Pulse 75 02/25/2024 3:08 PM EDT Temperature 36.9 C (98.5 F) 02/25/2024 3:08 PM ED T Respiratory Rate 18 02/25/2024 3:08 PM EDT Oxygen Saturation 98% 02/25/2024 3:08 PM EDT Inhaled Oxygen Concentration - - Weight 110 kg (242 lb 9.6 oz) 02/25/2024 3:08 PM EDT Height - - Body Mass Index 35.83 01/27/2024 2:50 PM EDT documented in this encounter Progress Notes * Mega Zuleta PA-C - 02/25/2024 3:11 PM EDT Convenient Care Basic Exam Jamie Webb is a 63 year old year old male who presents for evaluation of Cough, sore throat, Ear pain Bilat x 8 days He seen his PCP who Suggested he go on ABX and pt decided to wait due to many allergies and has been Hospitalized. Review of Systems Constitutional: Negative. HENT: Positive for ear pain. Eyes: Negative. Respiratory: Positive for cough. Cardiovascular: Negative. Gastrointestinal: Negative. Endocrine: Negative. Genitourinary: Negative. Musculoskeletal: Negative. Skin: Negative. Allergic/Immunologic: Negative. Neurological: Negative. Hematological: Negative. Psychiatric/Behavioral: Negative. PAST MEDICAL HISTORY: Past Medical History: Diagnosis Date Acute gastric ulcer without mention of hemorrhage, perforation, or obstruction 1997 duodenal ulcer Back disorder Benign neoplasm of adrenal gland Benign neoplasm of colon 07/31/2007 adenomatous repeat colonoscopy in 5 yrs Diaphragmatic hernia 06/06/2004 Diverticulitis of colon Diverticulosis of colon 09/15/201409/07 severe diverticulosis 08/30 mild Gastroparesis 06/06/2004 gastric stasis Generalized osteoarthritis GERD (gastroesophageal reflux disease) Hiatal hernia Irritable bowel syndrome Other constipation Other specified congenital anomalies right adrenal gland Personal history of colonic polyps 08/30/2002 Past Surgical History: Procedure Laterality Date CARPAL TUNNEL SURGERY Bilateral COLONOSCOPY 08/30/2002 polyp COLONOSCOPY 09/15/201409/07 severe diverticulosis COLONOSCOPY 07/16/2019 COLONOSCOPY W/ LESION REMOVAL, SNARE 07/31/2007 adenomatous repeat in 5 yrs COLONOSCOPY, DIAGNOSTIC (RECTUM) 07/16/2019 adenomatous polyp, repeat 5 yrs / COLONOSCOPY FLEXIBLE PROXIMAL DIAGNOSTIC performed by Ayan Carcamo MD at ENDOSCOPY [facility] EGD, FLEXIBLE, DIAGNOSTIC 03/14/2017 reflux esophagitis, hiatal hernia/ESOPHAGOGASTRODUODENOSCOPY (EGD), FLEXIBLE, TRANSORAL, DIAGNOSTICperformed by Ayan Carcamo MD at ENDOSCOPY [facility] EGD, FLEXIBLE, DIAGNOSTIC 09/15/201409/07 chronic gastritis & polyp and hiatal hernia EGD, FLEXIBLE, DIAGNOSTIC 11/30/2019 EGD, FLEXIBLE, DIAGNOSTIC 07/23/2021 EGD, FLEXIBLE, W/BIOPSY 06/06/2004 small hiatal hernia, gastric stasis, non erosive reflux INFORMATION lumbar and cervical surgery,no fusion KNEE ARTHROSCOPY/ARTHROPLASTY Right LAPAROSCOPY; CHOLECYSTECTOMY Cholecystectomy, Laproscopic MISCELLANEOUS ORDER ([facility] ONLY) shoulders REMOVAL OF ADENOIDS, UNDER AGE 12 REMOVE TONSILS & ADENOIDS, UNDER 12 SHOULDER SURGERY PROCEDURE NEC Bilateral SMALL BOWEL ENDOSCOPY W/BX 07/2007 normal Social History Tobacco Use Smoking status: Never Smokeless tobacco: Never Substance Use Topics Alcohol use: No Vaping/E-Cigarette Use Vaping/E-Cigarette Use Never User Vaping/E-Cigarette Substances Vaping/E-Cigarette Devices Patient Active Problem List Diagnosis Gastroparesis BENIGN NEOPLASM ADRENAL Stasis Dermatitis Back disorder History of colonic polyps Acute gastric ulcer without mention of hemorrhage, perforation, or obstruction Other constipation Irritable bowel syndrome Diaphragmatic hernia Diverticulosis of colon Benign neoplasm of colon Thoracic spondylosis BMI 35-39 ISOLATED (SEE ACTUAL BMI) Abdominal pain, epigastric ADVANCE DIRECTIVE INFORMATION Ear problem Lumbar radiculitis Diverticulitis of colon Cognitive impairment Serologic abnormality Joint pain Chronic generalized pain Fatigue Bilateral carpal tunnel syndrome Rotator cuff disorder, unspecified laterality Osteoarthritis involving multiple joints on both sides of body Review of patient's allergies indicates: Allergen Reactions Augmentin [Amoxicillin-Pot Clavulanate] Edema airway Ciprofloxacin Edema face/lips/tongue Itching Clavulanic Acid Other reaction(s): swelling Pcn [Penicillins] Anaphylaxis Asa [Salicylates] Nausea/vomiting Avelox [Moxifloxacin Hcl In Nacl] Rash Bacitracin Bactrim [Sulfamethoxazole-Trimethoprim] Hives Birds Unknown Iodine Itching hives Moxifloxacin Rash replaced free text allergy. replaced free text allergy. Mushroom Extract Complex Unknown Crabtree Bark [Quercus Robur] Unknown Other Allergy (See Comments) Other reaction(s): Rash Oyster Shell Unknown Pollen Crabtree, insects, - eyes itch Shrimp Extract Unknown Skin Soft Fragrance Current Outpatient Medications Medication Sig Dispense Refill Omeprazole 40 MG Oral Capsule Delayed Release (PriLOSEC) One tab 1/2 hr prior to breakfast and one tab 1/2 prior to messi meal 60 Capsule 5 predniSONE 20 MG Oral Tablet (Deltasone) Take 2 Tablets by mouth in the morning for 5 days. 10 Tablet 0 Azithromycin 250 MG Oral Tablet (Zithromax Z-Phillip) Take two tablets by mouth on first day, then 1 tablet daily until gone 6 Tablet 0 Benzonatate 100 MG Oral Capsule Take 2 Capsules by mouth 3 times a day as needed for Cough. 30 Capsule 0 Betamethasone Dipropionate 0.05 % External Cream (Diprosone) Apply to the arms/legs/back/abdomen twice daily for 1-2 weeks as needed (Patient not taking: Reported on 04/02/2023) 135 g 2 Cyclobenzaprine HCl 10 MG Oral Tablet (Flexeril) Take 1 Tablet by mouth 3 times a day as needed forMuscle spasms. (Patient not taking: Reported on 01/27/2024) 30 Tablet 0 No current facility-administered medications for this visit. Nursing Notes and Vital Signs reviewed. BP 128/90 | Pulse 75 | Temp 36.9 C (98.5 F) (Tympanic) | Resp 18 | Wt 110 kg (242 lb 9.6 oz) | SpO2 98% | BMI 35.83 kg/m | BSA 2.31 m Physical Exam Constitutional: Appearance: Normal appearance. He is normal weight. HENT: Head: Normocephalic and atraumatic. Right Ear: Ear canal and external ear normal. A middle ear effusion is present. Left Ear: Ear canal and external ear normal. A middle ear effusion is present. Tympanic membrane iserythematous. Nose: Nose normal. Mouth/Throat: Pharynx: Oropharynx is clear. Eyes: Extraocular Movements: Extraocular movements intact. Cardiovascular: Rate and Rhythm: Normal rate and regular rhythm. Pulses: Normal pulses. Heart sounds: Normal heart sounds. Pulmonary: Effort: Pulmonary effort is normal. Breath sounds: Wheezing present. Abdominal: General: Abdomen is flat. Musculoskeletal: General: Normal range of motion. Cervical back: Normal range of motion and neck supple. Skin: General: Skin is warm. Neurological: General: No focal deficit present. Mental Status: He is alert and oriented to person, place, and time. Mental status is at baseline. Psychiatric: Mood and Affect: Mood normal. Behavior: Behavior normal. Thought Content: Thought content normal. Judgment: Judgment normal. ASSESSMENT: Non-recurrent acute suppurative otitis media of left ear without spontaneous rupture of tympanic membrane (Primary) - Azithromycin 250 MG Oral Tablet (Zithromax Z-Phillip); Take two tablets by mouth on first day, then 1tablet daily until gone Viral URI with cough - Benzonatate 100 MG Oral Capsule; Take 2 Capsules by mouth 3 times a day as needed for Cough. Acute bronchitis, antibiotics not indicated - predniSONE 20 MG Oral Tablet (Deltasone); Take 2 Tablets by mouth in the morning for 5 days. - Benzonatate 100 MG Oral Capsule; Take 2 Capsules by mouth 3 times a day as needed for Cough. - Hydration / Rest - Tylenol PRN Follow Up: Return if symptoms worsen or fail to improve, for Clinic Visit. | For: Clinic Visit Mega Zuleta PA-C [address] [phone] documented in this encounter Nursing Notes * Antonietta Murray CMA - 02/25/2024 3:02 PM EDT Jamie Webb is a 63 year old male who presents to walk-in clinic today complaining of Chief Complaint Patient presents with Cough Sore Throat Ear Pain Bilateral ear pain Brief history: Patient presents today with cold Sx beginning 8 days ago, [facility] but the Pt wanted to wait because hehas a past with a lot of allergies with antibiotics that have lead to him being in the hospital. Onset/duration x8 days . Tried muchinex, tylenol, cough drops Patient is accompanied by self for today's visit. documented in this encounter Plan of Treatment Upcoming Encounters Date Type Department Care Team ([facility] Contact Info) Description 07/12/2024 11:20 AM EST Office Visit Dermatology [address] [phone] Jovon Artis PA-C [address] [place] [phone] Scheduled Procedures Name Priority Associated Diagnoses Date/Ti me COLONOSCOPY FLEXIBLE PROXIMAL DIAGNOSTIC Recall History of colon polyps Health Maintenance Due Date Last Done Comments Depression Screening 1971 HIV Screening 11/14/1974 DTap/Tdap Vaccines (1 - Tdap) 11/14/1978 Cologuard 11/14/2004 Fecal Occult Blood Test 11/14/2004 Sigmoidoscopy 11/14/2004 Zoster Vaccines (1 of 2) 11/14/2009 COVID-19 [...] on patient's age to complete this topic Pneumococcal Vaccine: Pediatrics (0 to 5 Years) and At-Risk Patients (6 to 64 Years) Aged Out No longer eligible based on patient's age to complete this topic documented as of this encounter Medical Devices Not on filedocumented as of this encounter Visit Diagnoses Diagnosis Non-recurrent acute suppurative otitis media of left ear without spontaneous rupture of tympanic membrane- Primary Viral URI with cough Acute upper respiratory infections of unspecified site Acute bronchitis, antibiotics not indicated Acute bronchitis documented in this encounter Care Teams Game Programmer Relationship Specialty Start Date End Date Nixon Llamas MD [employer] [address] [phone] PCP - General 07/23/04 documented as of this encounter"
--- OUTSIDE RECORDS SUMMARY | 2024-07-30 16:18 | External Medical Summary ---
Author Name Unknown Address Unknown Organization [id number]:[facility] - [address] [place] [address] Laboratory Report Ordering Provider Test Date Status SHAR AGUILAR 02/16/2024 14:11:24 Final Observation Date Value Abnormality Reference (Units ) Status BUN 02/16/2024 14:11:24 11 6-20 (mg/dL) Final Creatinine 02/16/2024 14:11:24 1.0 0.6-1.2 (mg/dL) Final Glomerular filtration rate/1.73 sq M.predicted [Volume Rate/Area] in Serum, Plasma or Blood by Creatinine-based formula (CKD-EPI) 02/16/2024 14:11:24 85 >=60 (mL/min) Final eGFR is calculated based on the CKD-EPI 2020 equation. Sodium 02/16/2024 14:11:24 138 135-146 (m mol/L) Final Potassium 02/16/2024 14:11:24 4.1 3.5-5.1 (m mol/L) Final Cl 02/16/2024 14:11:24 101 98-107 (mm ol/L) Final CO2 02/16/2024 14:11:24 26 22-32 (mmo l/L) Final Anion gap 02/16/2024 14:11:24 11 7-15 (mmol /L) Final Glucose 02/16/2024 14:11:24 113 70-120 (mg /dL) Final Calcium 02/16/2024 14:11:24 9.3 8.4-10.2 ( mg/dL) Final Performing Location [facility] [place] - [address] [place] [address]
--- OUTSIDE RECORDS SUMMARY | 2024-07-30 16:18 | External Medical Summary | Summary of Care ---
Author Name Unknown Organization [facility] Address [address] [place] [address] Phone [phone] Care Team Providers Care Sort Line Worker Name Role Phone Nixon Llamas MD Primary Care Provider Reason for Visit * Reason Comments Outpatient Testing Encounter Details Date Type Department Care Team ([facility] Contact Info) Description 02/16/2024 2:10 PM EDT Laboratory Laboratory Patient Service [address] [phone] [address] [address] Impaired fasting glucose*; Dyslipidemia, goal LDL below 160 Allergies Active Allergy Reactions Criticality Noted Date Comments Salicylates Nausea/vomiting 07/25/2004 Amoxicillin-Pot Clavulanate Edema airway High 06/14/2019 Moxifloxacin Hcl In Nacl Rash 10/15/2011 Bacitracin 10/02/2022 Birds Unknown 09/22/2015 Ciprofloxacin Edema face/lips/tongue High 06/14/2019 Itching Clavulanic Acid High 05/23/2011 Other reaction(s): swelling Iodine Itching 07/25/2004 hives Moxifloxacin Rash 05/23/2011 replaced free text allergy. replaced free text allergy. Mushroom Extract Complex Unknown 08/21/2015 Quercus Robur Unknown 08/21/2015 Other Allergy (See Comments) 09/25/2022 Other reaction(s): Rash Oyster Shell Unknown 08/21/2015 Penicillins Anaphylaxis High 07/25/2004 Pollen 09/22/2015 [place], insects, - eyes itch Shrimp Extract Unknown 08/21/2015 Skin Soft Fragrance 10/02/2022 documented as of this encounter (statuses as of 02/16/2024) Medications Medication Sig Dispensed Refills Start Date End Date Status Betamethasone Dipropionate 0.05 % External Cream (Diprosone) Apply to the arms/legs/back/abd omen twice daily for 1-2 weeks as needed [...] messi meal 60 Capsule 5 01/27/2024 Active documented as of this encounter (statuses as of 02/16/2024) Active Problems Problem Noted Date Diagnosed Date [...] as of this encounter (statuses as of 02/16/2024) Immunizations Name Administration Dates Next Due Seasonal [...] Upcoming Encounters Date Type Department Care Team ([facility] st Contact Info) Description 07/12/2024 11:20 AM EST Office Visit Dermatology [address] [phone] Jovon Artis PA-C [address] [place] [phone] Pending Results Name Type Priority Associated Diagnoses Date /Time BASIC METABOLIC PANEL Lab Routine Impaired fasting glucose Dyslipidemia, goal LDL below 160 02/16/2024 2:11 PM EDT HEMOGLOBIN A1C Lab Routine Impaired fasting glucose Dyslipidemia, goal LDL below 160 02/16/2024 2:11 PM EDT CBC WITH WBC DIFFERENTIAL Lab Routine Impaired fasting glucose Dyslipidemia, goal LDL below 160 02/16/2024 2:11 PM EDT CBC Lab Routine Impaired fasting glucose Dyslipidemia, goal LDL below 160 02/16/2024 2:11 PM EDT DIFFERENTIAL, AUTOMATED Lab Routine Impaired fasting glucose Dyslipidemia, goal LDL below 160 02/16/2024 2:11 PM EDT Scheduled Orders Name Type Priority Associated Diagnoses Orde r Schedule BASIC METABOLIC PANEL Lab Routine Impaired fasting glucose Dyslipidemia, goal LDL below 160 Expected: 02/16/2024, Expires: 02/15/2025 HEMOGLOBIN A1C Lab Routine Impaired fasting glucose Dyslipidemia, goal LDL below 160 Expected: 02/16/2024, Expires: 02/15/2025 CBC WITH WBC DIFFERENTIAL Lab Routine Impaired fasting glucose Dyslipidemia, goal LDL below 160 Expected: 02/16/2024, Expires: 02/15/2025 Scheduled Procedures Name Priority Associated Diagnoses Date/Ti [...] exists Colorectal Cancer Screening 07/16/2024 Diabetes Screening 01/13/2027 01/14/2024, 1 06/02/2022, 10/02/2022, Additional history exists Lipid Panel 01/13/2029 01/14/2024, [...] as of this encounter Visit Diagnoses Diagnosis Impaired fasting glucose- Primary Dyslipidemia, goal LDL below 160 Other and unspecified hyperlipidemia documented in this encounter Care Teams Sort Line Worker Relationship Specialty Start Date End Date Nixon Llamas MD [facility] [place] [address] [place] [id number] PCP - General 07/23/04 documented as of this encounter
--- OUTSIDE RECORDS SUMMARY | 2024-07-30 16:18 | External Medical Summary | Summary of Care ---
Author Name Unknown Organization [facility] Address [address] [place] [address] Phone [phone] Care Team Providers Care Daytime Babysitter Name Role Phone Nixon Llamas MD Primary Care Provider Reason for Visit * Reason Comments Follow Up Recent diverticuliti s flare Encounter Details Date Type Department Care Team ([facility] Contact Info) Description 01/27/2024 3:10 PM EDT [facility] [address] [place] [address] Renata Zaragoza PA-C [address] [place], [place] [phone] Abdominal pain, unspecified abdominal location*; History of diverticulitis Allergies Active Allergy Reactions Criticality Noted Date [...] 08/21/2015 Penicillins Anaphylaxis High 07/25/2004 Pollen 09/22/2015 [place], insects, - eyes itch Shrimp Extract Unknown 08/21/2015 Skin Soft Fragrance 10/02/2022 documented as of this encounter (statuses as of 02/16/2024) Medications Medication Sig Dispensed Refills Start Date End Date Status Betamethasone Dipropionate 0.05 % External Cream (Diprosone) Apply to the arms/legs/back/a bdomen twice daily for 1-2 weeks as needed [...] messi meal 60 Capsule 5 01/27/2024 Active Omeprazole 20 MG Oral Capsule Delayed Release (PriLOSEC) Take 1 Capsule by mouth in the morning. 30 Capsule 5 08/19/2023 4 Discontinue d(Medicatio n/Dose Changed) documented as of this encounter (statuses as [...] Sign Reading Time Taken Comments Blood Pressure 119/65 01/27/2024 2:50 PM EDT Pulse 62 01/27/2024 2:50 PM EDT Temperature - - Respiratory Rate 18 01/27/2024 2:50 PM EDT Oxygen Saturation - - Inhaled Oxygen Concentration - - Weight 108.4 kg (239 lb) 01/27/2024 2:50 PM EDT Height 175.3 cm (5' 9") 01/27/2024 2:50 PM EDT Body Mass Index 35.29 01/27/2024 2:50 PM EDT documented in this encounter Nursing Notes * Trice Nettles NCMA - 01/27/2024 2:50 PM EDT Chief Complaint Patient presents with Follow Up Recent diverticulitis flare documented in this encounter Plan of Treatment Upcoming Encounters Date Type Department Care Team ([facility] st Contact Info) Description 07/12/2024 11:20 AM EST Office Visit Dermatology [address] [phone] Jovon Artis PA-C [address] [place] [phone] Scheduled Procedures Name Priority Associated Diagnoses Date/Ti [...] (#1) 2024 01/28/2020, 03/03/2019 Colonoscopy 07/16/2024 07/16/2019, /05/2019, 09/15/2014, Additional history exists Colorectal Cancer Screening [...] as of this encounter Visit Diagnoses Diagnosis Abdominal pain, unspecified abdominal location- Primary History of diverticulitis documented in this encounter Care Teams Daytime Babysitter Relationship Specialty Start Date End Date Nixon Llamas MD [employer] [place] [address] [place] [phone] PCP - General 07/23/04 documented as of this encounter
--- OUTSIDE RECORDS SUMMARY | 2024-07-30 16:18 | External Medical Summary ---
Author Name Unknown Address Unknown Organization [id number]:LABORATORY [facility] [place] - [address] [facility] [address] Laboratory Report Ordering Provider Test Date Status SHAR AGUILAR 02/16/2024 14:11:24 Final Observation Date Value Abnormality Reference (Units ) Status WBC, Total 02/16/2024 14:11:24 6.56 4.00-10.80 (K/uL) Final RBC 02/16/2024 14:11:24 5.00 4.50-5.25 (M/uL) Final Hemoglobin 02/16/2024 14:11:24 15.4 14.0-16.8 (g/dL) Final HCT 02/16/2024 14:11:24 45.6 40.0-48.4 (%) Final MCV 02/16/2024 14:11:24 91.2 82.0-99.5 (fL) Final MCH 02/16/2024 14:11:24 30.8 27.0-34.0 (pg) Final MCHC 02/16/2024 14:11:24 33.8 32.0-36.0 (g/dL) Final RDW 02/16/2024 14:11:24 12.4 11.5-15.5 (%) Final Platelets 02/16/2024 14:11:24 209 140-400 (K/uL) Final MPV 02/16/2024 14:11:24 10.0 6.6-11.1 (fL) Final Nucleated erythrocytes/100 leukocytes [Ratio] in Blood by Automated count 02/16/2024 14:11:24 0 <=0 (/100 WBCs) Final Performing Location LABORATORY [facility] [place] - [address] [place] [address]
--- OUTSIDE RECORDS SUMMARY | 2024-07-30 16:18 | External Medical Summary | Summary of Care ---
Author Name Unknown Organization [facility] Address [address] [place] [address] Phone [phone] Care Team Providers Care Data Base Design Analyst Name Role Phone Nixon Llamas MD Primary Care Provider Reason for Visit * Reason Comments Sinus Problem Earache Bilateral ears Encounter Details Date Type Department Care Team (Latest Contact Info) Description 04/17/2024 9:00 AM EST [facility] Visit [facility] [address] [place] [phone] Mega Zuleta PA-C [address] [place] [address] Non-recurrent acute suppurative otitis media of both ears without spontaneous rupture of tympanic membranes* Allergies Active Allergy Reactions Criticality Noted Date [...] 08/21/2015 Penicillins Anaphylaxis High 07/25/2004 Pollen 09/22/2015 [place], insects, - eyes itch Shrimp Extract Unknown 08/21/2015 Skin Soft Fragrance 10/02/2022 documented as of this encounter (statuses as of 04/17/2024) Medications Betamethasone Dipropionate 0.05 % External Cream (Diprosone) Apply to the arms/legs/back/ abdomen twice daily for 1-2 weeks as needed 135 g 2 3 Active Additional Information Patient not taking.Reported on 04/02/2023 Cyclobenzaprine HCl 10 MG Oral Tablet (Flexeril) Take 1 Tablet by mouth 3 times a day as needed for Muscle spasms. 30 Tablet 4 Active Additional Information Patient not taking.Reported on 01/27/2024 Omeprazole 40 MG Oral Capsule Delayed Release (PriLOSEC) One tab 1/2 hr prior to breakfast and one tab 1/2 prior to messi meal 60 Capsule 5 4 Active Azithromycin 250 MG Oral Tablet (Zithromax Z-Phillip)Indication s:Non-recurrent acute suppurative otitis media of left ear without spontaneous rupture of tympanic membrane Take two tablets by mouth on first day, then 1 tablet daily until gone 6 Tablet 4 Active Additional Information Patient not taking.Reported on 04/17/2024 Benzonatate 100 MG Oral CapsuleIndicatio ns:Viral URI with cough,Acute bronchitis, antibiotics not indicated Take 2 Capsules by mouth 3 times a day as needed for Cough. 30 Capsule 4 Active Additional Information Patient not taking.Reported on 04/17/2024 Doxycycline Hyclate 100 MG Oral CapsuleIndicatio ns:Non-recurrent acute suppurative otitis media of both ears without spontaneous rupture of tympanic membranes Take 1 Capsule by mouth in the morning and 1 Capsule before bedtime. Do all this for 10 days. Until gone.. 20 Capsule 4 04/27/20 24 Active documented as of this encounter (statuses as of 04/17/2024) Active Problems Problem Noted Date Diagnosed Date [...] as of this encounter (statuses as of 04/17/2024) Resolved Problems Problem Noted Date Diagnosed Date Resolved Date ADVANCE DIRECTIVE INFORMATION 04/26/2010 03/29/2024 Overview (04/26/2010): Yes, Patient instructed to provide copy of advance directive for provider to review and to be scanned into Electronic Medical Record documented as of this encounter (statuses as of 04/17/2024) Immunizations Name Administration Dates Next Due Seasonal [...] Industry Job Start Date Job End Date [employer] [facility] Not on file No t on file Not on file documented as of this encounter Last Filed Vital Signs Vital Sign Reading Time Taken Comments Blood Pressure 126/80 04/17/2024 9:09 AM EST Pulse 83 04/17/2024 9:09 AM EST Temperature 36.4 C (97.6 F) 04/17/2024 9:09 AM ES T Respiratory Rate 20 04/17/2024 9:09 AM EST Oxygen Saturation 96% 04/17/2024 9:09 AM EST Inhaled Oxygen Concentration - - Weight 110.8 kg (244 lb 3.2 oz) 04/17/2024 9:09 AM EST Height - - Body Mass Index 36.06 01/27/2024 2:50 PM EDT documented in this encounter Progress Notes * Mega Zuleta PA-C - 04/17/2024 9:11 AM EST [facility] Basic Exam Jamie Webb is a 63 year old year old male who presents for evaluation of Sinus issues, Bilat earache x 4 days Review of Systems Constitutional: Negative. HENT: Positive for congestion, ear pain and sinus pressure. Eyes: Negative. Respiratory: Negative. Cardiovascular: Negative. Gastrointestinal: Negative. Endocrine: Negative. Genitourinary: Negative. Musculoskeletal: Negative. Skin: Negative. Allergic/Immunologic: Negative. Neurological: Negative. Hematological: Negative. Psychiatric/Behavioral: Negative. PAST MEDICAL HISTORY: Past Medical History: Diagnosis Date Acute gastric ulcer without mention of hemorrhage, perforation, or obstruction 1998 duodenal ulcer Back disorder Benign neoplasm of [...] performed by Ayan Carcamo MD at [facility] EGD, FLEXIBLE, DIAGNOSTIC 03/14/2017 reflux esophagitis, hiatal hernia/ESOPHAGOGASTRODUODENOSCOPY (EGD), FLEXIBLE, TRANSORAL, DIAGNOSTICperformed by Ayan Carcamo MD at [facility] EGD, FLEXIBLE, DIAGNOSTIC 09/15/201409/07 chronic gastritis & polyp and hiatal hernia EGD, FLEXIBLE, DIAGNOSTIC 11/30/2019 EGD, FLEXIBLE, DIAGNOSTIC 07/23/2021 EGD, FLEXIBLE, W/BIOPSY 06/06/2004 small hiatal hernia, gastric stasis, non erosive reflux INFORMATION lumbar and cervical surgery,no fusion KNEE ARTHROSCOPY/ARTHROPLASTY Right LAPAROSCOPY; CHOLECYSTECTOMY Cholecystectomy, Laproscopic MISCELLANEOUS ORDER ([facility] ONLY) shoulders REMOVAL OF ADENOIDS, UNDER AGE [...] ISOLATED (SEE ACTUAL BMI) Abdominal pain, epigastric Ear problem Lumbar radiculitis Diverticulitis of colon [...] free text allergy. Mushroom Extract Complex Unknown [place]as Bark [Quercus Robur] Unknown Other Allergy (See Comments) Other reaction(s): Rash Oyster Shell Unknown Pollen [place], insects, - eyes itch Shrimp Extract Unknown Skin Soft Fragrance Current Outpatient Medications Medication Sig Dispense Refill Omeprazole 40 MG Oral Capsule Delayed Release (PriLOSEC) One tab 1/2 hr prior to breakfast and one tab 1/2 prior to messi meal 60 Capsule 5 Doxycycline Hyclate 100 MG Oral Capsule Take 1 Capsule by mouth in the morning and 1 Capsule beforebedtime. Do all this for 10 days. Until gone.. 20 Capsule 0 Betamethasone Dipropionate 0.05 % External Cream (Diprosone) Apply to the arms/legs/back/abdomen twice daily for 1-2 weeks as needed (Patient not taking: Reported on 04/02/2023) 135 g 2 Cyclobenzaprine HCl 10 MG Oral Tablet (Flexeril) Take 1 Tablet by mouth 3 times a day as needed forMuscle spasms. (Patient not taking: Reported on 01/27/2024) 30 Tablet 0 Azithromycin 250 MG Oral Tablet (Zithromax Z-Phillip) Take two tablets by mouth on first day, then 1 tablet daily until gone (Patient not taking: Reported on 04/17/2024) 6 Tablet 0 Benzonatate 100 MG Oral Capsule Take 2 Capsules by mouth 3 times a day as needed for Cough. (Patient not taking: Reported on 04/17/2024) 30 Capsule 0 No current facility-administered medications for this visit. Nursing Notes and Vital Signs reviewed. BP 126/80 | Pulse 83 | Temp 36.4 C (97.6 F) (Tympanic) | Resp 20 | Wt 110.8 kg (244 lb 3.2 oz) | SpO2 96% | BMI 36.06 kg/m | BSA 2.32 m Physical Exam Constitutional: Appearance: Normal appearance. He is normal weight. HENT: Head: Normocephalic and atraumatic. Right Ear: Ear canal and external ear normal. Tympanic membrane is erythematous. Left Ear: Ear canal and external ear normal. Tympanic membrane is erythematous. Nose: Congestion present. Mouth/Throat: Pharynx: Oropharynx is clear. Cardiovascular: Rate and Rhythm: Normal rate and regular rhythm. Pulses: Normal pulses. Heart sounds: Normal heart sounds. Pulmonary: Effort: Pulmonary effort is normal. Breath sounds: Normal breath sounds. Musculoskeletal: General: Normal range of motion. Cervical back: Normal range of motion and neck supple. Neurological: General: No focal deficit present. Mental Status: He is alert and oriented to person, place, and time. Mental status is at baseline. Psychiatric: Mood and Affect: Mood normal. Behavior: Behavior normal. Thought Content: Thought content normal. Judgment: Judgment normal. ASSESSMENT: Non-recurrent acute suppurative otitis media of both ears without spontaneous rupture of tympanic membranes (Primary) - Doxycycline Hyclate 100 MG Oral Capsule; Take 1 Capsule by mouth in the morning and 1 Capsule before bedtime. Do all this for 10 days. Until gone.. - Motrin PRN - Zyrtec Follow Up: Return if symptoms worsen or fail to improve, for Clinic Visit. | For: Clinic Visit Mega Zuleta PA-C [address] [phone] documented in this encounter Nursing Notes * Nancy Salter LPN - 04/17/2024 9:09 AM EST Nursing Notes: CC: Chief Complaint Patient presents with Sinus Problem Earache Bilateral ears Brief Hx: Patient presents today for sinus issues and bilateral earache. Duration/Onset: x4 days OTC meds: Tylenol, Zyrtec and saline nasal spray Accompanied by: self documented in this encounter Plan of Treatment Upcoming Encounters Date Type Department Care Team ([facility] st Contact Info) Description 07/12/2024 11:20 AM EST Office Visit Dermatology [facility] [address] [place] [phone] Jovon Artis PA-C [address] [place] [phone] Scheduled Procedures Name Priority Associated Diagnoses Date/Ti me COLONOSCOPY FLEXIBLE PROXIMAL DIAGNOSTIC Recall History of colon polyps Health Maintenance Due Date Last Done Comments Depression Screening 1971 HIV Screening 11/14/1974 DTap/Tdap Vaccines (1 - Tdap) 11/14/1978 Cologuard 11/14/2004 Fecal Occult Blood Test 11/14/2004 Sigmoidoscopy 11/14/2004 Zoster Vaccines (1 of 2) 11/14/2009 COVID-19 Vaccine ( season) 2024 Influenza Vaccine (FLU shot) (#1) 2024 01/28/2020, 03/03/2019 Colonoscopy 07/16/2024 07/16/2019, 06/27, 09/15/2014, Additional history exists Colorectal Cancer Screening 07/16/2024 Diabetes Screening 02/15/2027 02/16/2024, 0 02/16/2024, 01/14/2024, Additional history exists Lipid Panel 01/13/2029 01/14/2024, 05/1 , 02/01/2020, Additional history exists RETIRED - COLONOSCOPY-EVERY [...] Diagnosis Non-recurrent acute suppurative otitis media of both ears without spontaneous rupture of tympanic membranes- Primary documented in this encounter Care Teams Data Base Design Analyst Relationship Specialty Start Date End Date Nixon Llamas MD [facility] [address] [id number] PCP - General 07/23/04 documented as of this encounter"
--- OUTSIDE RECORDS SUMMARY | 2024-07-30 16:18 | External Medical Summary ---
Author Name Unknown Address Unknown Organization [id number]:[facility]ORY [facility] [place] - [address] [facility] [address] Laboratory Report Ordering Provider Test Date Status SHAR AGUILAR 02/16/2024 14:11:24 Final Observation Date Value Abnormality Reference (Units ) Status HbA1C 02/16/2024 14:11:24 7.1 Above high normal 4. 0-5.6 (%) Final The use of HbA1c to monitor glycemic status is based on normal hemoglobin and HbA composition. This test should not be used in patients with abnormal hemoglobin that affects the half life of the red blood cell or the in vivo glycation rates. Glucose, estimated average 02/16/2024 14:11:24 157 Above high normal <126 (mg/dL) Rene sutton Performing Location [facility] [place] [facility] [address] [facility] [address]
--- OUTSIDE RECORDS SUMMARY | 2024-07-30 16:18 | External Medical Summary ---
Author Name Unknown Address Unknown Organization K01:LABORATORY [facility] - [address] [facility] [address] Laboratory Report Ordering Provider Test Date Status SHAR AGUILAR 02/16/2024 14:11:24 Final Observation Date Value Abnormality Reference (Units ) Status SYNC LEUKOCYTES IN BLOOD BY AUTOMATED COUNT 02/16/2024 14:11:24 6.56 4.00-10.80 (K/uL) Final Segs 02/16/2024 14:11:24 49.3 40.0-75.0 (%) Final Lymphs % 02/16/2024 14:11:24 28.8 18.0-42.0 (%) Final Monos 02/16/2024 14:11:24 11.9 Above high normal 1.0-11.0 (%) Final Eosinophils 02/16/2024 14:11:24 8.4 Above high normal 0.0-6.0 (%) Final Basos 02/16/2024 14:11:24 0.5 0.0-2.0 (%) Final Immature Granulocyte, Percent 02/16/2024 14:11:24 1.1 0.0-2.0 (%) Final Absolute Segs 02/16/2024 14:11:24 3.24 1.80-7.70 (K/uL) Final Lymphs, absolute 02/16/2024 14:11:24 1.89 1.00-4.80 (K/ul) Final Monos, Abs 02/16/2024 14:11:24 0.78 0.00-1.10 (K/uL) Final Eos, Abs 02/16/2024 14:11:24 0.55 0.00-0.70 (K/uL) Final Basos, Abs 02/16/2024 14:11:24 0.03 0.00-0.20 (K/uL) Final Immature Granulocytes, Number 02/16/2024 14:11:24 0.07 0.00-0.20 (K/uL) Final Performing Location [place] [facility] [place] [address] [facility] [address]
--- OUTSIDE RECORDS SUMMARY | 2024-07-30 16:18 | External Medical Summary | Summary of Care ---
Author Name Unknown Organization [facility] Address [address] [place] [address] Phone [phone] Care Team Providers Care Metal Stamping Machine Operator Name Role Phone Nixon Llamas MD Primary Care Provider Reason for Visit * Reason Comments Outpatient Testing Encounter Details Date Type Department Care Team ([facility] Contact Info) Description 02/16/2024 2:10 PM EDT Laboratory Laboratory Patient Service [address] [phone] [address] Impaired fasting glucose*; Dyslipidemia, goal LDL below [...] 08/21/2015 Penicillins Anaphylaxis High 07/25/2004 Pollen 09/22/2015 [place], insects, - eyes itch Shrimp Extract Unknown [...] Upcoming Encounters Date Type Department Care Team ([facility] st Contact Info) Description 07/12/2024 11:20 AM EST Office Visit Dermatology [address] [phone] Jovon Artis PA-C [address] [place] [phone] Pending Results Name Type Priority Associated Diagnoses [...] hyperlipidemia documented in this encounter Care Teams Metal Stamping Machine Operator Relationship Specialty Start Date End Date Nixon Llamas MD [facility] [place] [address] [place] [address] [address] PCP - General 07/23/04 documented as of this encounter
[2024-07-30] MEDS: METOPROLOL TARTRATE 25 MG TAB PO SCH (20:11)
[2024-07-31] MEDS: METOPROLOL TARTRATE 25 MG TAB PO STA (04:26)
[2024-07-31 04:43] LABS: Basophils # (auto) 0.02 K/uL (0.00-0.20); Basophils % (auto) 0.3 %; Eosinophils # (auto) 0.18 K/uL (0.00-0.50); Eosinophils % (auto) 3.1 %; Hemoglobin 14.2 g/dl (14.0-18.0); Immature Granulocytes # (auto) 0.07 K/uL (0.01-0.20); Immature Granulocytes % (auto) 1.2 %; Lymphocytes % (auto) 27.1 %; Mean Corpuscular Hemoglobin 31.1 pg (25.0-34.0); Mean Corpuscular Hgb Conc 36.4 g/dL (32.0-36.0); Mean Corpuscular Volume 85.3 fL (80.0-100.0); Mean Platelet Volume 9.4 fL (9.4-12.4); Monocytes # (auto) 0.72 K/uL (0.11-0.59); Monocytes % (auto) 12.2 %; Neutrophils # (auto) 3.31 K/uL (1.40-6.50); Neutrophils % (auto) 56.1 %; Platelet Count 182 K/uL (130-400); RDW Coefficient of Variation 12.5 % (11.5-14.5); RDW Standard Deviation 38.7 fL (36.4-46.3); Red Blood Count 4.57 M/uL (4.70-6.10)
[2024-07-31 04:56] LABS: BUN Creatinine Ratio 9.9 (10-20); Calcium 8.4 mg/dl (8.6-10.3); Creatinine Clr Calc Pharmacy 80.7 ml/min; Magnesium 1.9 mg/dl (1.7-2.4); Potassium 3.9 mmol/L (3.5-5.1)
[2024-07-31 07:37] VITALS: RESP 18; O2SAT 96
[2024-07-31 08:13] LABS: Estimated Average Glucose 197 mg/dl; Hemoglobin A1C 8.5 % (4.5-5.6)
[2024-07-31 12:42] VITALS: TEMP 98.4
--- NOTE | 2024-07-31 15:28 | Discharge Summary ---
Date of Service July 31, 2024 Admission HPI Per Admitting Provider 63-year-old male with PMH of adrenal cyst s/p draining several years ago, dermatitis, palpitations, hemochromatosis, and other problems listed below who presents to the ED for evaluation of nausea, vomiting, diarrhea, palpitations. Patient reports he developed GI symptoms about 3 days ago. Reports having several episodes of vomiting and diarrhea. Denies hematemesis, coffee-ground emesis, prior bleeding per rectum, dark tarry stools. Patient reports a longstanding history of intermittent palpitations. Reports having a stress test several years ago that was essentially normal and no further follow-up was had. Patient reports an increase in his palpitations since being sick. Denies chest pain. Has had some intermittent lightheadedness and dizziness, no syncopal event. Reports episodes of chills and diaphoresis however did not take his temperature. Denies urinary symptoms. In the ED, labs show K+ 3.0, HS trop 44 -> 55. Patient had two separate episodes of NSVT vs. SVT. Stool PCR negative. CT abd/pelvis shows mild retained liquid stool suggesting diarrhea, no other acute findings seen. patient was given IVF, IV Protonix, magnesium and potassium supplementation. Admission Exam Per Admitting Provider Constitutional: WD/WN, vitals as above + ill appearing; no acute distress Eyes: PERRL, conjunctivae normal, anicteric sclerae ENMT: Mouth: + dry oral mucous membranes Respiratory: normal respiratory effort, lungs clear to auscultation Cardiovascular: Rate/Rhythm: regular rate and regular rhythm Vessels: normal peripheral pulses Extremities: no edema Gastrointestinal (Abdomen): normal bowel sounds, soft, nontender, no hepatosplenomegaly Musculoskeletal: no cyanosis or clubbing, extremities motor strength 5/5 Skin: no rashes, warm and dry Neurologic: PERRL, EOMI, accommodation nl, no face palsy, no dysarthria Psychiatric: A+Ox3, euthymic affect Principal Diagnosis Likely viral gastroenteritis Electrolyte abnormalities Nonsustained V. tach Diabetes mellitus type 2 Discharge Exam oriented x 3 , not in distress, speaks in sentences with no effort nor accessory muscle use normal rate, regular rhythm, no murmurs clear breath sounds bilaterally non distended, soft, nontender no bipedal edema, erythema, warmth no neuro deficits Discharge Data Allergies Allergy/AdvReac Type Severity Reaction Status Date / Time amoxicillin Allergy Severe Swelling Verified 07/30/24 09:07 of Lip/Tongue/Throat bacitracin Allergy Severe Rash Verified 07/30/24 09:07 clavulanic acid Allergy Severe Swelling Verified 07/30/24 09:07 of Lip/Tongue/Throat Penicillins Allergy Severe Swelling Verified 07/30/24 09:07 of Lip/Tongue/Throat perfume Allergy Severe [place]/Perfume/Anything Unverified 07/30/24 09:02 with fragrance on skin causes rash sulfamethoxazole Allergy Severe Hives and Unverified 07/30/24 09:02 [From Bactrim] Rash trimethoprim [From Bactrim] Allergy Severe Hives and Unverified 07/30/24 09:02 Rash ciprofloxacin Allergy Intermediate Rash Verified 07/30/24 09:02 moxifloxacin Allergy Unknown Rash Verified 07/30/24 09:02 Consultations 07/30/24 11:41 ED Decision to Admit Stat Ordered Studies 07/30/24 10:14 CT abd pelvis IV con only Stat Hospital Course (1) Hypokalemia: Plan Patient was being managed for: Likely viral gastroenteritis Elevated troponin, likely demand ischemia in the setting of acute illness Electrolyte abnormalities in the setting of nausea/vomiting/diarrhea T2DM Patient reports improvement in his nausea, vomiting, diarrhea. No further diarrhea in hospital. Patient feels hungry, diet advanced, patient tolerated well. Patient would like to go home today. 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 Patient was started on metoprolol, electrolytes replaced, patient feels better. Patient advised to follow-up with cardiology upon discharge, recommended Zio patch monitoring upon discharge. We discussed about diabetes management and lifestyle modification. Initially patient was hesitant on starting on any medications at this time and would like to coordinate with his outpatient providers for further recommendation, upon further discussion, patient agreeable to metformin small dose at this time, patient has been advised to closely follow-up with diabetic clinic upon discharge for ongoing management/evaluation of his antidiabetes medications. We discussed about possible GI upset w/ metformin and to plan to start in next 1-2 days once he feels relief from his current GI illness. He states his sister who is RN uses metformin and he would feel more comfortable with it so that he can discuss about this med further w/ his sister. Patient's troponin relatively flat trended, no chest pain, echo with no regional wall motion abnormality. Patient is hemodynamically stable and would like to go home. Patient is being discharged home with following instructions at the point of discharge: Follow-up with your primary care physician within a week time and likely you will need labs CBC/CMP/magnesium/phosphorus. You were admitted and evaluated for electrolyte abnormalities in the setting of viral gastroenteritis and likely leading to heart arrhythmia. You will benefit from outpatient Zio patch monitoring, coordinate with your PCP office to set up the test. You will likely benefit from outpatient cardiology evaluation, coordinate with your PCP office to set up the referral. You are also noted to have A1c of 8.5, as discussed at the bedside you will be discharged on small dose of metformin. You will be started at 500 mg once a day with morning meal, after 3 to 4 days of no GI upset you can increase it to 500 mg twice a day with meals. Remember the diabetic medications needs to be continuously uptitrated to an optimal level, you will need close follow-up with diabetic clinic upon discharge. Coordinate with your PCP office to set up with diabetic clinic and follow up with the diabetic clinic in a week time of discharge. You can also follow-up with endocrinology upon discharge, coordinate with your PCP office to set up the referral. Recommend that you incorporate carbohydrate consistent diet, regular exercise regimen and weight loss plan in your lifestyle. Take your medications as prescribed. Please make sure that you are able to get your medications today by calling your pharmacy before you leave the hospital so that your treatment continuity is not broken. Home Health Attestation I certify that this patient is under my care and that I, or a physicians video library assistant working with me, had a face to-face encounter that meets the home health [id number] encounter requirements with this patient. The encounter with the patient was in whole, or in part, for the following medical condition, which is the primary reason for home health care (list medical condition): I certify that, based on my findings, the following services are medically necessary home health services: My clinical findings support the need for the above services because: Further, I certify that my clinical findings support that this patient is homebound (i.e. absences from home require considerable and taxing effort and are for medical reasons or voodoo services or infrequently or of short duration when for other reasons) because: Certification for Home Health Services: Based on the above findings, I certify that this patient is confined to the home and needs intermittent alf care, physical therapy and/or speech therapy or continues to need occupational therapy. The patient is under my care, and I have initiated the establishment of the plan of care. This patient will be followed by a physician who will periodically review the plan of care. Total Time Total Time Spent Total Time Spent (In Minutes): 35 Discharge Plan Discharge Items Patient Disposition: Home - Self-Care Reason For Visit: DIARRHEA, HEART RACING, PALPITATION, ABD PAIN Discharge Diagnosis: Likely viral gastroenteritis Palpitation, NSVT episode Electrolyte abnormality secondary to diarrhea Diabetes mellitus Activity: Resume your previous activity Non-emergency contact: Primary Care Provider Call non-emergency contact if: you have any medication questions and your symptoms worsen Follow-up/Referrals: Nixon Llamas MD [Primary Care Provider] - Diet: Carb Consistent or DM2 and Heart Healthy Addtl Attending Provider Instructions: Follow-up with your primary care physician within a week time and likely you will need labs CBC/CMP/magnesium/phosphorus. You were admitted and evaluated for electrolyte abnormalities in the setting of viral gastroenteritis and likely leading to heart arrhythmia. You will benefit from outpatient Zio patch monitoring, coordinate with your PCP office to set up the test. You will likely benefit from outpatient cardiology evaluation, coordinate with your PCP office to set up the referral. You are also noted to have A1c of 8.5, as discussed at the bedside you will be discharged on small dose of metformin. You will be started at 500 mg once a day with morning meal, after 3 to 4 days of no GI upset you can increase it to 500 mg twice a day with meals. Remember the diabetic medications needs to be continuously uptitrated to an optimal level, you will need close follow-up with diabetic clinic upon discharge. Coordinate with your PCP office to set up with diabetic clinic and follow up with the diabetic clinic in a week time of discharge. You can also follow-up with endocrinology upon discharge, coordinate with your PCP office to set up the referral. Recommend that you incorporate carbohydrate consistent diet, regular exercise regimen and weight loss plan in your lifestyle. Take your medications as prescribed. Please make sure that you are able to get your medications today by calling your pharmacy before you leave the hospital so that your treatment continuity is not broken. Pending Studies at Discharge: No Stand-Alone Forms: My [facility], Smoking Cessation Medications and DC Order Prescriptions: New metoprolol succinate 25 mg tablet extended release 24 hr 25 mg PO DAILY Qty: 30 0RF metformin 500 mg tablet 500 mg PO UD Qty: 35 0RF Rx Instructions: 1 tab daily w/ meal for 3-5 days, then 1 tab twice a day with meals thereafter. Continued omeprazole 40 mg capsule,delayed release(DR/EC) 40 mg PO QAM acetaminophen [Tylenol Extra Strength] 500 mg Tablet 500 mg PO Q6H PRN (Reason: Pain) fexofenadine 180 mg Tablet 180 mg PO QAM PRN (Reason: Allergy Symptoms) Discharge Orders: Discharge Order (Routine); Ordered 07/31/24 Ordered By: Franklin Fontaine Admission Data Admit Date/Time: 07/30/24 11:44 Attending Provider: Franklin Fontaine Admit Provider: Petr Betancur Primary Care Provider: Nixon Llamas Other Providers: Petr Betancur
[2024-07-31 15:40] VITALS: BP 104/58; PULSE 83
[2024-07-31] MEDS ORDERED: METOPROLOL TARTRATE 25 MG TAB PO SCH (21:00)
--- NOTE | 2024-07-31 22:45 | Electrocardiogram Report ---
Test Reason : Blood Pressure : */* mmHG Vent. Rate : 72 BPM Atrial Rate : 72 BPM P-R Int : 224 ms QRS Dur : 98 ms QT Int : 446 ms P-R-T Axes : 29 -46 -7 degrees QTcB Int : 488 ms Sinus rhythm with 1st degree A-V block Left axis deviation Incomplete right bundle branch block Prolonged QT Abnormal ECG When compared with ECG of 30-Jul-2024 06:36, Vent. rate has decreased by [address] no longer depressed in Lateral leads Nonspecific T wave abnormality now evident in Inferior leads Confirmed by Reynaldo Webster ([id number]) on 07/31/2024 10:45:30 PM Referred By: REFERRED SELF Confirmed By: Reynaldo Webster
== END 2024-07-31 16:10 | disposition home or self-care (01) | DRG 392 ==
LOC: ED 06:20 → PACUINP 11:44 → SUATTDRO 11:44 → INTOOBSV 11:44 → PACUINP 14:36 → 2S 15:46